=== PATIENT | male | born 1945 | race Caucasian/White ===

== ENCOUNTER 2018-04-21 17:03 | Inpatient (IN) | payer MEDICARE, MEDICAID ==
[2018-04-21 18:06] LABS: % BASOPHILS 0.1 % (0.0-2.0); % LYMPHOCYTES 14.6 % (20.0-50.0); % MONOCYTES 4.9 % (2.0-10.0); % NEUTROPHILS 74.4 % (40.0-80.0); EOSINOPHILE ABSOLUTE 0.6 Th/cmm (0.1-0.4); HEMATOCRIT 42.6 % (41.0-60); HEMOGLOBIN 14.2 gm/dL (12-16); LYMPHOCYTE ABSOLUTE 1.4 Th/cmm (1.5-3.0); MEAN CELL VOLUME 94.4 fl (80-99); MEAN CORPUSCULAR HEMOGLOBIN 31.5 pg (27.0-31.0); MEAN CORPUSCULAR HGB CONC 33.3 pg (28.0-36.0); MEAN PLATELET VOLUME 8.8 fl; MONOCYTE ABSOLUTE 0.5 Th/cmm (0.3-1.0); NEUTROPHILE ABSOLUTE 7.4 Th/cmm (1.8-8.0); PLATELET COUNT 176 Th/cmm (150-400); RED BLOOD COUNT 4.51 Mil/cmm (3.80-5.80); RED CELL DISTRIBUTION WIDTH 13.6 % (11.5-20.0); WHITE BLOOD COUNT 9.9 Th/cmm (4.8-10.8)
[2018-04-21 18:06] LABS: URINE SOURCE CLEAN C
[2018-04-21 18:09] LABS: URINE BILIRUBIN NEGATIVE (NEGATIVE); URINE BLOOD NEGATIVE (NEGATIVE); URINE GLUCOSE (UA) NEGATIVE (NEGATIVE); URINE KETONE NEGATIVE (NEGATIVE); URINE LEUKOCYTE ESTERASE NEGATIVE (NEGATIVE); URINE NITRATE NEGATIVE (NEGATIVE); URINE PROTEIN NEGATIVE (NEGATIVE); URINE UROBILINOGEN 0.2 E.U./dL (0.2 - 1.0)
[2018-04-21 18:13] LABS: URINE CLARITY CLEAR (CLEAR); URINE COLOR YELLOW; URINE MICROSCOPIC INDICATED? YES
[2018-04-21 18:15] LABS: URINE BACTERIA FEW /hpf (NONE SEEN); URINE EPITHELIAL CELLS FEW /lpf (FEW); URINE RBC 0-2 /hpf (0-5)
--- NOTE | 2018-04-21 18:21 | ED Physician Chart ---
ED Chief Complaint/HPI - Patient Information Date Seen:: 04/21/18 Time Seen:: 17:10 Chief Complaint:: inappropriate sexual behavior History of Present Illness:: inappropriate sexual behavior Allergies:: Allergies Allergy/AdvReac Type Severity Reaction Status Date / Time No Known Allergies Allergy Verified 04/21/18 17:09 Vitals:: Vital Signs - 8 hr 04/21/18 17:10 Temp 98.4 F HR 71 RR 19 BP 121/73 O2 Sat % 98 Historian:: Medical Records Review:: Nurse's Note Reviewed, Transfer documents Reviewed ED Review of Systems - Review of Systems General/Constitutional: No fever, No chills, No weakness, No diaphoresis, No edema, No loss of appetite, Other (inappropriate sexual behavior) Skin: No skin lesions, No rash, No bruising Head: No headache, No light-headedness Eyes: No loss of vision, No pain, No diplopia ENT: No earache, No nasal drainage, No sore throat, No tinnitus Neck: No neck pain, No swelling, No thyromegaly, No stiffness, No mass noted Cardio Vascular: No chest pain, No palpitations, No PND, No orthopnea, No edema Pulmonary: No SOB, No cough, No sputum, No wheezing GI: No nausea, No vomiting, No diarrhea, No pain, No melena, No hematochezia, No constipation, No hematemesis G/U: No dysuria, No frequency, No hematuria Musculoskeletal: No bone or joint pain, No back pain, No muscle pain Endocrine: No polyuria, No polydipsia Psychiatric: No prior psych history, No depression, No anxiety, No suicidal ideation Hematopoietic: No bruising, No lymphadenopathy Allergic/Immuno: No urticaria, No angioedema Neurological: No syncope, No focal symptoms, No weakness, No paresthesia, No headache, No seizure, No dizziness, No confusion, No vertigo ED Past Medical History - Past Medical History Obtainable: No Past Medical History: Dyslipidemia, PUD/GERD, Other (anemia;) Psychiatricy History: Schizophrenia, Other (dysphagia) Family Medical History - Family Member Mother History Unknown: Yes ED Physical Exam - Physical Examination General/Constitutional: Awake, Well-developed, well-nourished, No distress, Non- toxic appearing, Ambulatory Head: Atraumatic Eyes: Lids, conjuctiva normal, PERRL, EOMI Skin: Nl inspection, No rash, No skin lesions, No ecchymosis, Well hydrated, No lymphadenopathy ENMT: External ears, nose nl Neck: Nontender, Full ROM w/o pain, No nuchal rigidity, No mass, No stridor Respiratory: Nl effort/Exclusion, Clear to Auscultation, No Wheeze/Rhonchi/Rales Cardio Vascular: RRR, No murmur, gallop, rubs, NL S1 S2 GI: No tenderness/rebounding/guarding, No organomegaly, No hernia, Normal BS's, Nondistended, No mass/bruits, No McBurney tenderness : No CVA tenderness Extremities: No tenderness or effusion, Full ROM, normal strength in all extremities, No edema, Normal digits & nails Neuro/Psych: Alert/oriented, DTR's symmetric, Normal sensory exam, Normal motor strength, Normal gait, No focal deficits Misc: Normal back, No paraspinal tenderness ED Labs/Radiology/EKG Results - Lab Results Results: Laboratory Tests 04/21/18 04/21/18 17:00 18:00 WBC 9.9 RBC 4.51 Hgb 14.2 Hct 42.6 MCV 94.4 MCH 31.5 H MCHC Differential 33.3 RDW 13.6 Plt Count 176 MPV 8.8 Neutrophils % 74.4 Lymphocytes % 14.6 L Monocytes % 4.9 Eosinophils % 6.0 H Basophils % 0.1 Urine Source CLEAN C Urine Color YELLOW Urine Clarity CLEAR Urine pH 6.0 Ur Specific [place] 1.015 Urine Protein NEGATIVE Urine Glucose (UA) NEGATIVE Urine Ketones NEGATIVE Urine Blood NEGATIVE Urine Nitrate NEGATIVE Urine Bilirubin NEGATIVE Urine Urobilinogen 0.2 Ur Leukocyte Esterase NEGATIVE Urine RBC 0-2 H Urine WBC 2-5 Ur Epithelial Cells FEW Urine Bacteria FEW ED Assessment - Assessment General Assessment: PATIENT IS MEDICALLY CLEARED FOR THE GEROPSYCH UNIT. ED Septic Shock - . Is Septic Shock (SBP<90, OR Lactate>4 mmol\L) present?: No - <6hrs of presentation: Vital Signs: Vital Signs - 8 hr 04/21/18 17:10 Temp 98.4 F HR 71 RR 19 BP 121/73 O2 Sat % 98 ED Reassessment (Disposition) - Reassessment Reassessment Condition:: Unchanged - Diagnosis Diagnosis:: Sexually inappropriate behavior. PATIENT IS MEDICALLY CLEARED FOR THE GEROPSYCH UNIT. - Patient Disposition Discharge/Transfer:: Acute Care w/in this hosp Admitted to:: [facility] Condition at Disposition:: Stable, Unchanged
[2018-04-21 18:46] LABS: ALB/GLOB RATIO 1.3 (1.0-1.8); ALBUMIN 3.6 gm/dL (4.2-5.5); ALKALINE PHOSPHATASE 81 U/L (34-104); ANION GAP 11.3 (7.0-16.0); BILIRUBIN,TOTAL 0.3 mg/dL (0.3-1.0); BUN - UREA NITROGEN 22 mg/dL (7-25); CALCIUM SERUM 9.4 mg/dL (8.6-10.3); CARBON DIOXIDE 25.4 mEq/L (21.0-31.0); CHLORIDE 109 mEq/L (98-107); CREATININE - SERUM 1.1 mg/dL (0.7-1.3); GLUCOSE 110 mg/dL (70-105); PHOSPHOROUS 3.1 mg/dL (2.5-5.0); POTASSIUM SERUM 3.7 mEq/L (3.5-5.1); SGOT 13 U/L (13-39); SGPT/ALT 14 U/L (7-52); SODIUM SERUM 142 mEq/L (136-145); TOTAL PROTEIN,SERUM 6.3 gm/dL (6.0-8.3)
[2018-04-21 18:55] LABS: AMPHETAMINE URINE NEGATIVE (NEGATIVE); BARBITURATES URINE NEGATIVE (NEGATIVE); BENZODIAZEPINES QUAL URINE NEGATIVE (NEGATIVE); CANNABINOID THC NEGATIVE (NEGATIVE); COCAINE METABOLITE QUAL URINE NEGATIVE (NEGATIVE); METHADONE URINE NEGATIVE (NEGATIVE); METHAMPHETAMINES QUAL URINE NEGATIVE (NEGATIVE); OPIATES (MORPHINE) QUAL. URINE NEGATIVE (NEGATIVE); PHENCYCLIDINE (PCP) URINE NEGATIVE (NEGATIVE); TRICYCLICS (TCA) QUAL. URINE NEGATIVE (NEGATIVE)
[2018-04-21] MEDS ORDERED: Magnesium Hydroxide (MOM) 30 mL UDC PO PRN (21:06)
[2018-04-21 22:11] VITALS: BP 118/80
--- NOTE | 2018-04-21 23:53 | History & Physical ---
ADMIT DATE: 04/21/2018 HISTORY OF PRESENT ILLNESS: The patient is a 72-year-old male with long history of psychosis, mild dementia, hyperlipidemia, degenerative joint disease, admitted to Geropsych Department at [facility] under Dr. Booth's service. The patient feels well. No chest pain, no shortness of breath, nausea, no vomiting. PAST MEDICAL HISTORY: Significant for hyperlipidemia, degenerative joint disease, mild psychosis, mild dementia. PAST SURGICAL HISTORY: No recent surgery. ALLERGIES: None. MEDICATIONS: Follow admission reconciliation. SOCIAL HISTORY: Chronic smoker. No alcohol, no drug. FAMILY HISTORY: Noncontributory. REVIEW OF SYSTEMS: RENAL SYSTEM: No history of chronic renal disorder. CARDIOVASCULAR SYSTEM: No coronary artery disease. ENDOCRINE SYSTEM: No diabetes or thyroid problem. GASTROINTESTINAL SYSTEM: No upper or lower gastrointestinal bleed. NEUROLOGICAL SYSTEM: Seizure disorder. SKELETOMUSCULAR SYSTEM: He has degenerative joint disease. HEMATOLOGICAL: No bleeding tendencies. RESPIRATORY SYSTEM: No asthma. GENITOURINARY: No dysuria or hematuria. PHYSICAL EXAMINATION: GENERAL: He is awake, alert. VITAL SIGNS: Temperature 97.1, heart rate 75, blood pressure 118/80. HEENT: Normocephalic. Pupils reacting to light and accommodation. Sclerae are clear. NECK: Supple. Negative for lymphadenopathy, JVD or bruit. CHEST: Bilaterally normal. No rales, rhonchi or wheezing. HEART: S1, S2 normal. No gallop rhythm. ABDOMEN: Soft, bowel sounds positive. EXTREMITIES: No edema. BACK: Normal vertebral. SKIN: Intact. GENITALIA AND RECTAL: Exam done by primary physician, no complaint. NEUROLOGIC: Awake, alert, mildly confused. No focal motor or sensory deficit. Cranial nerves 2-12 are intact. ASSESSMENT: 1. Hyperlipidemia. 2. Degenerative joint disease. 3. Mild dementia. 4. Psychosis. PLAN: The patient admitted to the hospital under Dr. Booth's service. Medical problem addressed during hospitalization is psychosis. Medical problems addressed at discharge are hyperlipidemia, mild dementia, degenerative joint disease. The patient is medically stable for activity. Thank you, Dr. Booth, for asking me to see your patient. The patient is full code. JOB# [id number]
[2018-04-22 00:05] LABS: CHOLESTEROL 154 mg/dL (<200); HDL -HIGH DENSITY LIPOPROTEIN 46 mg/dL (23-92); TRIGLYCERIDES 269 mg/dL (<150)
[2018-04-22] MEDS ORDERED: PSYLLIUM HUSK PO SCH (09:00)
[2018-04-22] MEDS: Multivitamin w/ Minerals Tab PO SCH (10:00)
[2018-04-22] MEDS: Fish Oil 1,000 MG SGL PO SCH (10:00)
--- NOTE | 2018-04-22 14:24 | History & Physical ---
ADMIT DATE: IDENTIFYING INFORMATION: The patient is a 72-year-old male. CHIEF COMPLAINT: The patient is a poor historian, have no specific answer. HISTORY OF PRESENT ILLNESS: The patient was referred from [place] and was yesterday. He was acting out, combative, agitated. The patient's sleep well, eats well has to be medicated yesterday prior to sending him here while he was at the rehab center. The patient is a poor historian. Denies substance abuse. PAST PSYCHIATRIC HISTORY: There is a prior hospitalization; however, he does not remember being hospitalized before. He denies prior suicide attempt; however, his long history of psychotic issues. He is currently on Clozaril. MEDICAL HISTORY: Hyperlipidemia. His joint disease, mild dementia. ALLERGIES: He has no known drug allergy. FAMILY AND SOCIAL HISTORY: The patient, who has been since 1968 and that he has no children that he has college education. He told me that he works, but unable to tell me exactly how he worked and understand what he was saying the patient is on Clozaril 500 mg daily. The patient denies substance abuse. He denies prior psychiatric treatment, which is incorrect. MENTAL STATUS EXAMINATION: The patient is appropriately dressed, not well groomed. He was somewhat irritable. He was alert. He was unable to tell me the date. He knew he was at [facility]. He knows the peritonitis states he was denying any intent to harm himself or anybody. He was acting very agitated, combative yesterday. He seems to have average in terms of present, states that he is unable to tell me the date. He was able to tell me his date being 1945. States that his age 72 and 74 as he said he has mild dementia, unable tell me what he ate for breakfast or why he is here. His nursing home is good. However, he is , date of , but not his age. He denies any visual hallucination. He was somewhat paranoid. His insight and judgment is impaired. IMPRESSION: AXIS I: Chronic undifferentiated Schizoaffective disorder. MEDICAL DIAGNOSES: As per Dr. Moran. Plan: We will continue with the Clozaril do group therapy, milieu therapy, and individual therapy. ESTIMATED LENGTH OF STAY: 3-7 days. DISCHARGE CRITERIA: Decreasing agitation, feeling better after discharge, outpatient treatment. JOB# [id number]
--- NOTE | 2018-04-22 18:04 | Internal Medicine Prog Note ---
Internal Medicine Subjective - Subjective Service Date: 04/22/18 Patient seen and examined:: with staff Patient is:: awake, verbal, ambulating, confused Per staff patient has:: no adverse event Internal Medicine Objective - Results Result Diagrams: 04/21/18 18:00 04/21/18 18:00 Recent Labs: Laboratory Last Values WBC 9.9 Th/cmm (4.8-10.8) 04/21/18 18:00 RBC 4.51 Mil/cmm (3.80-5.80) 04/21/18 18:00 Hgb 14.2 gm/dL (12-16) 04/21/18 18:00 Hct 42.6 % (41.0-60) 04/21/18 18:00 MCV 94.4 fl (80-99) 04/21/18 18:00 MCH 31.5 pg (27.0-31.0) H 04/21/18 18:00 MCHC Differential 33.3 pg (28.0-36.0) 04/21/18 18:00 RDW 13.6 % (11.5-20.0) 04/21/18 18:00 Plt Count 176 Th/cmm (150-400) 04/21/18 18:00 MPV 8.8 fl 04/21/18 18:00 Neutrophils % 74.4 % (40.0-80.0) 04/21/18 18:00 Lymphocytes % 14.6 % (20.0-50.0) L 04/21/18 18:00 Monocytes % 4.9 % (2.0-10.0) 04/21/18 18:00 Eosinophils % 6.0 % (0.0-5.0) H 04/21/18 18:00 Basophils % 0.1 % (0.0-2.0) 04/21/18 18:00 Sodium 142 mEq/L (136-145) 04/21/18 18:00 Potassium 3.7 mEq/L (3.5-5.1) 04/21/18 18:00 Chloride 109 mEq/L (98-107) H 04/21/18 18:00 Carbon Dioxide 25.4 mEq/L (21.0-31.0) 04/21/18 18:00 Anion Gap 11.3 (7.0-16.0) 04/21/18 18:00 BUN 22 mg/dL (7-25) 04/21/18 18:00 Creatinine 1.1 mg/dL (0.7-1.3) 04/21/18 18:00 Est GFR ( Amer) TNP 04/21/18 18:00 Est GFR (Non-Af Amer) TNP 04/21/18 18:00 BUN/Creatinine Ratio 20.0 04/21/18 18:00 Glucose 110 mg/dL (70-105) H 04/21/18 18:00 Calcium 9.4 mg/dL (8.6-10.3) 04/21/18 18:00 Phosphorus 3.1 mg/dL (2.5-5.0) 04/21/18 18:00 Magnesium 2.0 mg/dL (1.9-2.7) 04/21/18 18:00 Total Bilirubin 0.3 mg/dL (0.3-1.0) 04/21/18 18:00 AST 13 U/L (13-39) 04/21/18 18:00 ALT 14 U/L (7-52) 04/21/18 18:00 Alkaline Phosphatase 81 U/L (34-104) 04/21/18 18:00 Total Protein 6.3 gm/dL (6.0-8.3) 04/21/18 18:00 Albumin 3.6 gm/dL (4.2-5.5) L 04/21/18 18:00 Globulin 2.7 gm/dL 04/21/18 18:00 Albumin/Globulin Ratio 1.3 (1.0-1.8) 04/21/18 18:00 Triglycerides 269 mg/dL (<150) H 04/21/18 18:00 Cholesterol 154 mg/dL (<200) 04/21/18 18:00 LDL Cholesterol Direct 90 mg/dL (75-193) 04/21/18 18:00 HDL Cholesterol 46 mg/dL (23-92) 04/21/18 18:00 Urine Source CLEAN C 04/21/18 17:00 Urine Color YELLOW 04/21/18 17:00 Urine Clarity CLEAR (CLEAR) 04/21/18 17:00 Urine pH 6.0 (4.6 - 8.0) 04/21/18 17:00 Ur Specific [place] 1.015 (1.005-1.030) 04/21/18 17:00 Urine Protein NEGATIVE mg/dL (NEGATIVE) 04/21/18 17:00 Urine Glucose (UA) NEGATIVE mg/dL (NEGATIVE) 04/21/18 17:00 Urine Ketones NEGATIVE mg/dL (NEGATIVE) 04/21/18 17:00 Urine Blood NEGATIVE (NEGATIVE) 04/21/18 17:00 Urine Nitrate NEGATIVE (NEGATIVE) 04/21/18 17:00 Urine Bilirubin NEGATIVE (NEGATIVE) 04/21/18 17:00 Urine Urobilinogen 0.2 E.U./dL (0.2 - 1.0) 04/21/18 17:00 Ur Leukocyte Esterase NEGATIVE (NEGATIVE) 04/21/18 17:00 Urine RBC 0-2 /hpf (0-5) H 04/21/18 17:00 Urine WBC 2-5 /hpf (0-5) 04/21/18 17:00 Ur Epithelial Cells FEW /lpf (FEW) 04/21/18 17:00 Urine Bacteria FEW /hpf (NONE SEEN) 04/21/18 17:00 Urine Opiates Screen NEGATIVE (NEGATIVE) 04/21/18 17:00 Urine Methadone Screen NEGATIVE (NEGATIVE) 04/21/18 17:00 Ur Barbiturates Screen NEGATIVE (NEGATIVE) 04/21/18 17:00 Ur Tricyclics Screen NEGATIVE (NEGATIVE) 04/21/18 17:00 Ur Phencyclidine Scrn NEGATIVE (NEGATIVE) 04/21/18 17:00 Amphetamines Screen NEGATIVE (NEGATIVE) 04/21/18 17:00 U Methamphetamines Scrn NEGATIVE (NEGATIVE) 04/21/18 17:00 U Benzodiazepines Scrn NEGATIVE (NEGATIVE) 04/21/18 17:00 U Cocaine Metab Screen NEGATIVE (NEGATIVE) 04/21/18 17:00 U Cannabinoids Screen NEGATIVE (NEGATIVE) 04/21/18 17:00 - Physical Exam Vitals and I&O: Vital Signs Temp 98.3 F 04/22/18 14:00 Pulse 70 04/22/18 14:00 Resp 18 04/22/18 14:00 BP 109/74 04/22/18 14:00 Pulse Ox 98 04/22/18 14:00 Intake & Output 04/21/18 04/22/18 04/22/18 18:59 06:59 18:59 Weight (lbs) 73.936 kg Other: Weight Source Patient stated Active Medications: Current Medications Acetaminophen (Tylenol) 325 mg PO Q4HR PRN PRN Reason: Pain (Mild) Stop: 06/20/18 21:05 Cholecalciferol (Vitamin D3) 2,000 iu PO DAILY [facility] Stop: 06/21/18 08:59 Last Admin: 04/22/18 10:00 Dose: Not Given Clozapine (Clozaril) 500 mg PO DAILY [facility]; Protocol Stop: 06/21/18 08:59 Last Admin: 04/22/18 10:00 Dose: Not Given Docusate Sodium (Colace) 100 mg PO BID [facility] Stop: 06/21/18 08:59 Last Admin: 04/22/18 17:33 Dose: Not Given Fish Oil ([place] 3) 1,000 mg PO DAILY [facility] Stop: 06/21/18 08:59 Last Admin: 04/22/18 10:00 Dose: Not Given Folic Acid (Folate) 1 mg PO DAILY [facility] Stop: 06/21/18 08:59 Last Admin: 04/22/18 10:00 Dose: Not Given Magnesium Hydroxide (Milk Of Magnesia) 30 ml PO HS PRN PRN Reason: Constipation Stop: 06/20/18 21:05 Psyllium Hydrophilic Mucilloid (Metamucil) 1 pkt PO DAILY [facility] Stop: 06/21/18 08:59 Last Admin: 04/22/18 10:00 Dose: Not Given Simvastatin (Zocor) 40 mg PO HS [facility]; Protocol Stop: 06/21/18 20:59 General: alert, demented HEENT: NC/AT, PERRLA, EOMI, anicteric sclerae, throat clear Neck: Supple, No JVD, No thyromegaly, +2 carotid pulse wo bruit, No LAD Lungs: CTAB Cardiovascular: RRR, Normal S1, Normal S2, without murmur Abdomen: soft, non-tender, non-distended Extremities: clear Neurological: no change Internal Medicine Assmt/Plan - Assessment Assessment: 1.HYPERLIPIDEMIA. 2.DJD. 3.DEMENTIA. 4.PSYCHOSIS. - Plan Plan: CONTINUE ON CURRENT MEDICATION AND DIET.
[2018-04-23] MEDS: Multivitamin w/ Minerals Tab PO SCH (08:29)
[2018-04-23] MEDS: Fish Oil 1,000 MG SGL PO SCH (08:29)
--- NOTE | 2018-04-23 20:58 | Progress Notes ---
DATE: 04/23/2018 Case was discussed with staff of the patient, reviewed records. The patient apparently did not take the Clozaril yesterday, took it today and felt nauseated. He is taking a very high dose of Clozaril for which I will be decreasing down to 100 mg at bedtime instead of 500 mg as if he was then taking the medication, I think that may be too much of the dose to suddenly take and sleeping better, eating better, and continues to have episodes of agitation, irritability, and he is on Metamucil to make sure he does not get constipated, simvastatin. We will continue to work with the patient in group therapy, milieu therapy, and adjust medications as needed. JOB# [id number]
--- NOTE | 2018-04-23 22:51 | Internal Medicine Prog Note ---
Internal Medicine Subjective - Subjective Service Date: 04/23/18 Patient seen and examined:: with staff Patient is:: awake, verbal, ambulating, confused Per staff patient has:: no adverse event Internal Medicine Objective - Results Result Diagrams: 04/21/18 18:00 04/21/18 18:00 Recent Labs: Laboratory Last Values WBC 9.9 Th/cmm (4.8-10.8) 04/21/18 18:00 RBC 4.51 Mil/cmm (3.80-5.80) 04/21/18 18:00 Hgb 14.2 gm/dL (12-16) 04/21/18 18:00 Hct 42.6 % (41.0-60) 04/21/18 18:00 MCV 94.4 fl (80-99) 04/21/18 18:00 MCH 31.5 pg (27.0-31.0) H 04/21/18 18:00 MCHC Differential 33.3 pg (28.0-36.0) 04/21/18 18:00 RDW 13.6 % (11.5-20.0) 04/21/18 18:00 Plt Count 176 Th/cmm (150-400) 04/21/18 18:00 MPV 8.8 fl 04/21/18 18:00 Neutrophils % 74.4 % (40.0-80.0) 04/21/18 18:00 Lymphocytes % 14.6 % (20.0-50.0) L 04/21/18 18:00 Monocytes % 4.9 % (2.0-10.0) 04/21/18 18:00 Eosinophils % 6.0 % (0.0-5.0) H 04/21/18 18:00 Basophils % 0.1 % (0.0-2.0) 04/21/18 18:00 Sodium 142 mEq/L (136-145) 04/21/18 18:00 Potassium 3.7 mEq/L (3.5-5.1) 04/21/18 18:00 Chloride 109 mEq/L (98-107) H 04/21/18 18:00 Carbon Dioxide 25.4 mEq/L (21.0-31.0) 04/21/18 18:00 Anion Gap 11.3 (7.0-16.0) 04/21/18 18:00 BUN 22 mg/dL (7-25) 04/21/18 18:00 Creatinine 1.1 mg/dL (0.7-1.3) 04/21/18 18:00 Est GFR ( Amer) TNP 04/21/18 18:00 Est GFR (Non-Af Amer) TNP 04/21/18 18:00 BUN/Creatinine Ratio 20.0 04/21/18 18:00 Glucose 110 mg/dL (70-105) H 04/21/18 18:00 Calcium 9.4 mg/dL (8.6-10.3) 04/21/18 18:00 Phosphorus 3.1 mg/dL (2.5-5.0) 04/21/18 18:00 Magnesium 2.0 mg/dL (1.9-2.7) 04/21/18 18:00 Total Bilirubin 0.3 mg/dL (0.3-1.0) 04/21/18 18:00 AST 13 U/L (13-39) 04/21/18 18:00 ALT 14 U/L (7-52) 04/21/18 18:00 Alkaline Phosphatase 81 U/L (34-104) 04/21/18 18:00 Total Protein 6.3 gm/dL (6.0-8.3) 04/21/18 18:00 Albumin 3.6 gm/dL (4.2-5.5) L 04/21/18 18:00 Globulin 2.7 gm/dL 04/21/18 18:00 Albumin/Globulin Ratio 1.3 (1.0-1.8) 04/21/18 18:00 Triglycerides 269 mg/dL (<150) H 04/21/18 18:00 Cholesterol 154 mg/dL (<200) 04/21/18 18:00 LDL Cholesterol Direct 90 mg/dL (75-193) 04/21/18 18:00 HDL Cholesterol 46 mg/dL (23-92) 04/21/18 18:00 Urine Source CLEAN C 04/21/18 17:00 Urine Color YELLOW 04/21/18 17:00 Urine Clarity CLEAR (CLEAR) 04/21/18 17:00 Urine pH 6.0 (4.6 - 8.0) 04/21/18 17:00 Ur Specific [place] 1.015 (1.005-1.030) 04/21/18 17:00 Urine Protein NEGATIVE mg/dL (NEGATIVE) 04/21/18 17:00 Urine Glucose (UA) NEGATIVE mg/dL (NEGATIVE) 04/21/18 17:00 Urine Ketones NEGATIVE mg/dL (NEGATIVE) 04/21/18 17:00 Urine Blood NEGATIVE (NEGATIVE) 04/21/18 17:00 Urine Nitrate NEGATIVE (NEGATIVE) 04/21/18 17:00 Urine Bilirubin NEGATIVE (NEGATIVE) 04/21/18 17:00 Urine Urobilinogen 0.2 E.U./dL (0.2 - 1.0) 04/21/18 17:00 Ur Leukocyte Esterase NEGATIVE (NEGATIVE) 04/21/18 17:00 Urine RBC 0-2 /hpf (0-5) H 04/21/18 17:00 Urine WBC 2-5 /hpf (0-5) 04/21/18 17:00 Ur Epithelial Cells FEW /lpf (FEW) 04/21/18 17:00 Urine Bacteria FEW /hpf (NONE SEEN) 04/21/18 17:00 Urine Opiates Screen NEGATIVE (NEGATIVE) 04/21/18 17:00 Urine Methadone Screen NEGATIVE (NEGATIVE) 04/21/18 17:00 Ur Barbiturates Screen NEGATIVE (NEGATIVE) 04/21/18 17:00 Ur Tricyclics Screen NEGATIVE (NEGATIVE) 04/21/18 17:00 Ur Phencyclidine Scrn NEGATIVE (NEGATIVE) 04/21/18 17:00 Amphetamines Screen NEGATIVE (NEGATIVE) 04/21/18 17:00 U Methamphetamines Scrn NEGATIVE (NEGATIVE) 04/21/18 17:00 U Benzodiazepines Scrn NEGATIVE (NEGATIVE) 04/21/18 17:00 U Cocaine Metab Screen NEGATIVE (NEGATIVE) 04/21/18 17:00 U Cannabinoids Screen NEGATIVE (NEGATIVE) 04/21/18 17:00 - Physical Exam Vitals and I&O: Vital Signs Temp 98.4 F 04/23/18 19:52 Pulse 96 04/23/18 19:52 Resp 19 04/23/18 19:52 BP 117/70 04/23/18 19:52 Pulse Ox 96 04/23/18 19:52 Intake & Output 04/23/18 04/23/18 04/24/18 06:59 18:59 06:59 Intake Total 1400 Balance 1400 Intake: Oral 1400 Other: # Voids 4 # Bowel Movements 1 Active Medications: Current Medications Acetaminophen (Tylenol) 325 mg PO Q4HR PRN PRN Reason: Pain (Mild) Stop: 06/20/18 21:05 Cholecalciferol (Vitamin D3) 2,000 iu PO DAILY [facility] Stop: 06/21/18 08:59 Last Admin: 04/23/18 08:29 Dose: 2,000 iu Clozapine (Clozaril) 100 mg PO HS [facility]; Protocol Stop: 06/22/18 20:59 Last Admin: 04/23/18 20:15 Dose: 100 mg Docusate Sodium (Colace) 100 mg PO BID [facility] Stop: 06/21/18 08:59 Last Admin: 04/23/18 17:08 Dose: 100 mg Fish Oil ([place] 3) 1,000 mg PO DAILY [facility] Stop: 06/21/18 08:59 Last Admin: 04/23/18 08:29 Dose: 1,000 mg Folic Acid (Folate) 1 mg PO DAILY [facility] Stop: 06/21/18 08:59 Last Admin: 04/23/18 08:29 Dose: 1 mg Magnesium Hydroxide (Milk Of Magnesia) 30 ml PO HS PRN PRN Reason: Constipation Stop: 06/20/18 21:05 Psyllium Hydrophilic Mucilloid (Metamucil) 1 pkt PO DAILY [facility] Stop: 06/21/18 08:59 Last Admin: 04/23/18 08:30 Dose: 1 pkt Simvastatin (Zocor) 40 mg PO HS [facility]; Protocol Stop: 06/21/18 20:59 Last Admin: 04/23/18 20:15 Dose: 40 mg General: alert, demented HEENT: NC/AT, PERRLA, EOMI, anicteric sclerae, throat clear Neck: Supple, No JVD, No thyromegaly, +2 carotid pulse wo bruit, No LAD Lungs: CTAB Cardiovascular: RRR, Normal S1, Normal S2, without murmur Abdomen: soft, non-tender, non-distended Extremities: clear Neurological: no change Internal Medicine Assmt/Plan - Assessment Assessment: 1.HYPERLIPIDEMIA. 2.DJD. 3.DEMENTIA. 4.PSYCHOSIS. - Plan Plan: CONTINUE ON CURRENT MEDICATION AND DIET.
[2018-04-24] MEDS: Fish Oil 1,000 MG SGL PO SCH (09:00)
[2018-04-24] MEDS: Multivitamin w/ Minerals Tab PO SCH (09:00)
--- NOTE | 2018-04-24 18:27 | Internal Medicine Prog Note ---
Internal Medicine Subjective - Subjective Service Date: 04/24/18 Patient seen and examined:: with staff Patient is:: awake, verbal, ambulating, confused Per staff patient has:: no adverse event Internal Medicine Objective - Results Result Diagrams: 04/21/18 18:00 04/21/18 18:00 Recent Labs: Laboratory Last Values WBC 9.9 Th/cmm (4.8-10.8) 04/21/18 18:00 RBC 4.51 Mil/cmm (3.80-5.80) 04/21/18 18:00 Hgb 14.2 gm/dL (12-16) 04/21/18 18:00 Hct 42.6 % (41.0-60) 04/21/18 18:00 MCV 94.4 fl (80-99) 04/21/18 18:00 MCH 31.5 pg (27.0-31.0) H 04/21/18 18:00 MCHC Differential 33.3 pg (28.0-36.0) 04/21/18 18:00 RDW 13.6 % (11.5-20.0) 04/21/18 18:00 Plt Count 176 Th/cmm (150-400) 04/21/18 18:00 MPV 8.8 fl 04/21/18 18:00 Neutrophils % 74.4 % (40.0-80.0) 04/21/18 18:00 Lymphocytes % 14.6 % (20.0-50.0) L 04/21/18 18:00 Monocytes % 4.9 % (2.0-10.0) 04/21/18 18:00 Eosinophils % 6.0 % (0.0-5.0) H 04/21/18 18:00 Basophils % 0.1 % (0.0-2.0) 04/21/18 18:00 Sodium 142 mEq/L (136-145) 04/21/18 18:00 Potassium 3.7 mEq/L (3.5-5.1) 04/21/18 18:00 Chloride 109 mEq/L (98-107) H 04/21/18 18:00 Carbon Dioxide 25.4 mEq/L (21.0-31.0) 04/21/18 18:00 Anion Gap 11.3 (7.0-16.0) 04/21/18 18:00 BUN 22 mg/dL (7-25) 04/21/18 18:00 Creatinine 1.1 mg/dL (0.7-1.3) 04/21/18 18:00 Est GFR ( Amer) TNP 04/21/18 18:00 Est GFR (Non-Af Amer) TNP 04/21/18 18:00 BUN/Creatinine Ratio 20.0 04/21/18 18:00 Glucose 110 mg/dL (70-105) H 04/21/18 18:00 Calcium 9.4 mg/dL (8.6-10.3) 04/21/18 18:00 Phosphorus 3.1 mg/dL (2.5-5.0) 04/21/18 18:00 Magnesium 2.0 mg/dL (1.9-2.7) 04/21/18 18:00 Total Bilirubin 0.3 mg/dL (0.3-1.0) 04/21/18 18:00 AST 13 U/L (13-39) 04/21/18 18:00 ALT 14 U/L (7-52) 04/21/18 18:00 Alkaline Phosphatase 81 U/L (34-104) 04/21/18 18:00 Total Protein 6.3 gm/dL (6.0-8.3) 04/21/18 18:00 Albumin 3.6 gm/dL (4.2-5.5) L 04/21/18 18:00 Globulin 2.7 gm/dL 04/21/18 18:00 Albumin/Globulin Ratio 1.3 (1.0-1.8) 04/21/18 18:00 Triglycerides 269 mg/dL (<150) H 04/21/18 18:00 Cholesterol 154 mg/dL (<200) 04/21/18 18:00 LDL Cholesterol Direct 90 mg/dL (75-193) 04/21/18 18:00 HDL Cholesterol 46 mg/dL (23-92) 04/21/18 18:00 Urine Source CLEAN C 04/21/18 17:00 Urine Color YELLOW 04/21/18 17:00 Urine Clarity CLEAR (CLEAR) 04/21/18 17:00 Urine pH 6.0 (4.6 - 8.0) 04/21/18 17:00 Ur Specific [place] 1.015 (1.005-1.030) 04/21/18 17:00 Urine Protein NEGATIVE mg/dL (NEGATIVE) 04/21/18 17:00 Urine Glucose (UA) NEGATIVE mg/dL (NEGATIVE) 04/21/18 17:00 Urine Ketones NEGATIVE mg/dL (NEGATIVE) 04/21/18 17:00 Urine Blood NEGATIVE (NEGATIVE) 04/21/18 17:00 Urine Nitrate NEGATIVE (NEGATIVE) 04/21/18 17:00 Urine Bilirubin NEGATIVE (NEGATIVE) 04/21/18 17:00 Urine Urobilinogen 0.2 E.U./dL (0.2 - 1.0) 04/21/18 17:00 Ur Leukocyte Esterase NEGATIVE (NEGATIVE) 04/21/18 17:00 Urine RBC 0-2 /hpf (0-5) H 04/21/18 17:00 Urine WBC 2-5 /hpf (0-5) 04/21/18 17:00 Ur Epithelial Cells FEW /lpf (FEW) 04/21/18 17:00 Urine Bacteria FEW /hpf (NONE SEEN) 04/21/18 17:00 Urine Opiates Screen NEGATIVE (NEGATIVE) 04/21/18 17:00 Urine Methadone Screen NEGATIVE (NEGATIVE) 04/21/18 17:00 Ur Barbiturates Screen NEGATIVE (NEGATIVE) 04/21/18 17:00 Ur Tricyclics Screen NEGATIVE (NEGATIVE) 04/21/18 17:00 Ur Phencyclidine Scrn NEGATIVE (NEGATIVE) 04/21/18 17:00 Amphetamines Screen NEGATIVE (NEGATIVE) 04/21/18 17:00 U Methamphetamines Scrn NEGATIVE (NEGATIVE) 04/21/18 17:00 U Benzodiazepines Scrn NEGATIVE (NEGATIVE) 04/21/18 17:00 U Cocaine Metab Screen NEGATIVE (NEGATIVE) 04/21/18 17:00 U Cannabinoids Screen NEGATIVE (NEGATIVE) 04/21/18 17:00 - Physical Exam Vitals and I&O: Vital Signs Temp 97.9 F 04/24/18 14:00 Pulse 64 04/24/18 14:00 Resp 18 04/24/18 14:00 BP 101/67 04/24/18 14:00 Pulse Ox 97 04/24/18 14:00 Intake & Output 04/23/18 04/24/18 04/24/18 18:59 06:59 18:59 Intake Total 1400 240 Output Total 1 Balance 1400 240 -1 Intake: Oral 1400 240 Output: Stool 1 Other: # Voids 4 2 # Bowel Movements 1 Active Medications: Current Medications Acetaminophen (Tylenol) 325 mg PO Q4HR PRN PRN Reason: Pain (Mild) Stop: 06/20/18 21:05 Cholecalciferol (Vitamin D3) 2,000 iu PO DAILY [facility] Stop: 06/21/18 08:59 Last Admin: 04/24/18 09:00 Dose: 2,000 iu Clozapine (Clozaril) 100 mg PO HS [facility]; Protocol Stop: 06/22/18 20:59 Last Admin: 04/23/18 20:15 Dose: 100 mg Docusate Sodium (Colace) 100 mg PO BID [facility] Stop: 06/21/18 08:59 Last Admin: 04/24/18 16:31 Dose: 100 mg Fish Oil ([place] 3) 1,000 mg PO DAILY [facility] Stop: 06/21/18 08:59 Last Admin: 04/24/18 09:00 Dose: 1,000 mg Folic Acid (Folate) 1 mg PO DAILY [facility] Stop: 06/21/18 08:59 Last Admin: 04/24/18 09:00 Dose: 1 mg Magnesium Hydroxide (Milk Of Magnesia) 30 ml PO HS PRN PRN Reason: Constipation Stop: 06/20/18 21:05 Psyllium Hydrophilic Mucilloid (Metamucil) 1 pkt PO DAILY [facility] Stop: 06/21/18 08:59 Last Admin: 04/24/18 09:01 Dose: 1 pkt Simvastatin (Zocor) 40 mg PO HS [facility]; Protocol Stop: 06/21/18 20:59 Last Admin: 04/23/18 20:15 Dose: 40 mg General: alert, demented HEENT: NC/AT, PERRLA, EOMI, anicteric sclerae, throat clear Neck: Supple, No JVD, No thyromegaly, +2 carotid pulse wo bruit, No LAD Lungs: CTAB Cardiovascular: RRR, Normal S1, Normal S2, without murmur Abdomen: soft, non-tender, non-distended Extremities: clear Neurological: no change Internal Medicine Assmt/Plan - Assessment Assessment: 1.HYPERLIPIDEMIA. 2.DJD. 3.DEMENTIA. 4.PSYCHOSIS. - Plan Plan: CONTINUE ON CURRENT MEDICATION AND DIET.
--- NOTE | 2018-04-24 22:08 | Progress Notes ---
DATE: 04/24/2018 SUBJECTIVE: Case was discussed with staff of the patient, reviewed records. I decrease Clozaril yesterday to 100 mg at bedtime as the patient did not take it for I don't know how many days and he was vomiting yesterday, dizzy. I will keep him on the 100 mg and see how he does on it. He is not acting out. However, he is still unpredictable, impulsive, getting easily agitated. No current side effects with the medication, no sedation, no nausea, and no extrapyramidal symptoms. Lab work showed CBC with high MCH, high lymphocyte, high eosinophil, and the rest within normal range. Chemistry panel with high chloride, high blood sugar, and low albumin, the rest within normal range. He has high triglyceride 269, the rest within normal range. Urinalysis was red cells in the urine and toxicology screen is negative. We will continue to work with the patient in group therapy, milieu therapy, and adjust the medications as needed. JOB# [id number]
[2018-04-25] MEDS: Fish Oil 1,000 MG SGL PO SCH (08:23)
[2018-04-25] MEDS: Multivitamin w/ Minerals Tab PO SCH (08:23)
--- NOTE | 2018-04-25 12:56 | Internal Medicine Prog Note ---
Internal Medicine Subjective - Subjective Service Date: 04/25/18 Patient is:: awake, verbal, ambulating, confused Per staff patient has:: no adverse event Internal Medicine Objective - Results Result Diagrams: 04/21/18 18:00 04/21/18 18:00 Recent Labs: Laboratory Last Values WBC 9.9 Th/cmm (4.8-10.8) 04/21/18 18:00 RBC 4.51 Mil/cmm (3.80-5.80) 04/21/18 18:00 Hgb 14.2 gm/dL (12-16) 04/21/18 18:00 Hct 42.6 % (41.0-60) 04/21/18 18:00 MCV 94.4 fl (80-99) 04/21/18 18:00 MCH 31.5 pg (27.0-31.0) H 04/21/18 18:00 MCHC Differential 33.3 pg (28.0-36.0) 04/21/18 18:00 RDW 13.6 % (11.5-20.0) 04/21/18 18:00 Plt Count 176 Th/cmm (150-400) 04/21/18 18:00 MPV 8.8 fl 04/21/18 18:00 Neutrophils % 74.4 % (40.0-80.0) 04/21/18 18:00 Lymphocytes % 14.6 % (20.0-50.0) L 04/21/18 18:00 Monocytes % 4.9 % (2.0-10.0) 04/21/18 18:00 Eosinophils % 6.0 % (0.0-5.0) H 04/21/18 18:00 Basophils % 0.1 % (0.0-2.0) 04/21/18 18:00 Sodium 142 mEq/L (136-145) 04/21/18 18:00 Potassium 3.7 mEq/L (3.5-5.1) 04/21/18 18:00 Chloride 109 mEq/L (98-107) H 04/21/18 18:00 Carbon Dioxide 25.4 mEq/L (21.0-31.0) 04/21/18 18:00 Anion Gap 11.3 (7.0-16.0) 04/21/18 18:00 BUN 22 mg/dL (7-25) 04/21/18 18:00 Creatinine 1.1 mg/dL (0.7-1.3) 04/21/18 18:00 Est GFR ( Amer) TNP 04/21/18 18:00 Est GFR (Non-Af Amer) TNP 04/21/18 18:00 BUN/Creatinine Ratio 20.0 04/21/18 18:00 Glucose 110 mg/dL (70-105) H 04/21/18 18:00 Calcium 9.4 mg/dL (8.6-10.3) 04/21/18 18:00 Phosphorus 3.1 mg/dL (2.5-5.0) 04/21/18 18:00 Magnesium 2.0 mg/dL (1.9-2.7) 04/21/18 18:00 Total Bilirubin 0.3 mg/dL (0.3-1.0) 04/21/18 18:00 AST 13 U/L (13-39) 04/21/18 18:00 ALT 14 U/L (7-52) 04/21/18 18:00 Alkaline Phosphatase 81 U/L (34-104) 04/21/18 18:00 Total Protein 6.3 gm/dL (6.0-8.3) 04/21/18 18:00 Albumin 3.6 gm/dL (4.2-5.5) L 04/21/18 18:00 Globulin 2.7 gm/dL 04/21/18 18:00 Albumin/Globulin Ratio 1.3 (1.0-1.8) 04/21/18 18:00 Triglycerides 269 mg/dL (<150) H 04/21/18 18:00 Cholesterol 154 mg/dL (<200) 04/21/18 18:00 LDL Cholesterol Direct 90 mg/dL (75-193) 04/21/18 18:00 HDL Cholesterol 46 mg/dL (23-92) 04/21/18 18:00 Urine Source CLEAN C 04/21/18 17:00 Urine Color YELLOW 04/21/18 17:00 Urine Clarity CLEAR (CLEAR) 04/21/18 17:00 Urine pH 6.0 (4.6 - 8.0) 04/21/18 17:00 Ur Specific [place] 1.015 (1.005-1.030) 04/21/18 17:00 Urine Protein NEGATIVE mg/dL (NEGATIVE) 04/21/18 17:00 Urine Glucose (UA) NEGATIVE mg/dL (NEGATIVE) 04/21/18 17:00 Urine Ketones NEGATIVE mg/dL (NEGATIVE) 04/21/18 17:00 Urine Blood NEGATIVE (NEGATIVE) 04/21/18 17:00 Urine Nitrate NEGATIVE (NEGATIVE) 04/21/18 17:00 Urine Bilirubin NEGATIVE (NEGATIVE) 04/21/18 17:00 Urine Urobilinogen 0.2 E.U./dL (0.2 - 1.0) 04/21/18 17:00 Ur Leukocyte Esterase NEGATIVE (NEGATIVE) 04/21/18 17:00 Urine RBC 0-2 /hpf (0-5) H 04/21/18 17:00 Urine WBC 2-5 /hpf (0-5) 04/21/18 17:00 Ur Epithelial Cells FEW /lpf (FEW) 04/21/18 17:00 Urine Bacteria FEW /hpf (NONE SEEN) 04/21/18 17:00 Urine Opiates Screen NEGATIVE (NEGATIVE) 04/21/18 17:00 Urine Methadone Screen NEGATIVE (NEGATIVE) 04/21/18 17:00 Ur Barbiturates Screen NEGATIVE (NEGATIVE) 04/21/18 17:00 Ur Tricyclics Screen NEGATIVE (NEGATIVE) 04/21/18 17:00 Ur Phencyclidine Scrn NEGATIVE (NEGATIVE) 04/21/18 17:00 Clozapine SEE REF. LAB REPORT 04/21/18 18:00 Amphetamines Screen NEGATIVE (NEGATIVE) 04/21/18 17:00 U Methamphetamines Scrn NEGATIVE (NEGATIVE) 04/21/18 17:00 U Benzodiazepines Scrn NEGATIVE (NEGATIVE) 04/21/18 17:00 U Cocaine Metab Screen NEGATIVE (NEGATIVE) 04/21/18 17:00 U Cannabinoids Screen NEGATIVE (NEGATIVE) 04/21/18 17:00 - Physical Exam Vitals and I&O: Vital Signs Temp 97.8 F 04/25/18 05:47 Pulse 66 04/25/18 05:47 Resp 20 04/25/18 05:47 BP 118/77 04/25/18 05:47 Pulse Ox 98 04/25/18 05:47 Intake & Output 04/24/18 04/25/18 04/25/18 18:59 06:59 18:59 Intake Total 540 Output Total 1 Balance -1 540 Intake: Oral 540 Output: Stool 1 Other: # Voids 2 # Bowel Movements 0 Active Medications: Current Medications Acetaminophen (Tylenol) 325 mg PO Q4HR PRN PRN Reason: Pain (Mild) Stop: 06/20/18 21:05 Cholecalciferol (Vitamin D3) 2,000 iu PO DAILY [facility] Stop: 06/21/18 08:59 Last Admin: 04/25/18 08:23 Dose: 2,000 iu Clozapine 100 mg/ Clozapine 25 (mg) 125 mg PO HS [facility] Stop: 06/24/18 20:59 Docusate Sodium (Colace) 100 mg PO BID [facility] Stop: 06/21/18 08:59 Last Admin: 04/25/18 08:23 Dose: 100 mg Fish Oil ([place] 3) 1,000 mg PO DAILY [facility] Stop: 06/21/18 08:59 Last Admin: 04/25/18 08:23 Dose: 1,000 mg Folic Acid (Folate) 1 mg PO DAILY [facility] Stop: 06/21/18 08:59 Last Admin: 04/25/18 08:23 Dose: 1 mg Magnesium Hydroxide (Milk Of Magnesia) 30 ml PO HS PRN PRN Reason: Constipation Stop: 06/20/18 21:05 Psyllium Hydrophilic Mucilloid (Metamucil) 1 pkt PO DAILY [facility] Stop: 06/21/18 08:59 Last Admin: 04/25/18 08:23 Dose: 1 pkt Simvastatin (Zocor) 40 mg PO HS [facility]; Protocol Stop: 06/21/18 20:59 Last Admin: 04/24/18 20:29 Dose: 40 mg General: alert, demented HEENT: NC/AT, PERRLA, EOMI, anicteric sclerae, throat clear Neck: Supple, No JVD, No thyromegaly, +2 carotid pulse wo bruit, No LAD Lungs: CTAB Cardiovascular: RRR, Normal S1, Normal S2, without murmur Abdomen: soft, non-tender, non-distended Extremities: clear Neurological: no change Internal Medicine Assmt/Plan - Assessment Assessment: 1.HYPERLIPIDEMIA. 2.DJD. 3.DEMENTIA. 4.PSYCHOSIS. - Plan Plan: CONTINUE ON CURRENT MEDICATION AND DIET.
[2018-04-25] MEDS ORDERED: cloZAPine 100 MG, cloZAPine 25 MG PO SCH (21:00)
--- NOTE | 2018-04-25 23:37 | Progress Notes ---
DATE: 04/25/2018 Case was discussed with staff of the patient, reviewed records. The patient tolerated the decrease in his Clozaril. He is not vomiting. He is not sedative. He is sleeping better, eating better. He continues to be internally preoccupied. He is compliant with the medication with no side effects, no sedation or nausea. No extrapyramidal symptoms. I will be increasing his dose to 125 mg at bedtime. Also, he is on medication for constipation, so he will not get constipated and we will monitoring his bowel function. No side effects with the medication, no sedation, no nausea, no extrapyramidal symptoms. We will continue to work with the patient in group therapy, milieu therapy, and adjust the medication as needed. JOB# [id number]
[2018-04-26] MEDS: Fish Oil 1,000 MG SGL PO SCH (09:48)
[2018-04-26] MEDS: Multivitamin w/ Minerals Tab PO SCH (09:48)
--- NOTE | 2018-04-26 10:14 | Internal Medicine Prog Note ---
Internal Medicine Subjective - Subjective Patient seen and examined:: without staff Patient is:: awake, verbal, ambulating, confused Per staff patient has:: no adverse event Internal Medicine Objective - Results Result Diagrams: 04/21/18 18:00 04/21/18 18:00 Recent Labs: Laboratory Last Values WBC 9.9 Th/cmm (4.8-10.8) 04/21/18 18:00 RBC 4.51 Mil/cmm (3.80-5.80) 04/21/18 18:00 Hgb 14.2 gm/dL (12-16) 04/21/18 18:00 Hct 42.6 % (41.0-60) 04/21/18 18:00 MCV 94.4 fl (80-99) 04/21/18 18:00 MCH 31.5 pg (27.0-31.0) H 04/21/18 18:00 MCHC Differential 33.3 pg (28.0-36.0) 04/21/18 18:00 RDW 13.6 % (11.5-20.0) 04/21/18 18:00 Plt Count 176 Th/cmm (150-400) 04/21/18 18:00 MPV 8.8 fl 04/21/18 18:00 Neutrophils % 74.4 % (40.0-80.0) 04/21/18 18:00 Lymphocytes % 14.6 % (20.0-50.0) L 04/21/18 18:00 Monocytes % 4.9 % (2.0-10.0) 04/21/18 18:00 Eosinophils % 6.0 % (0.0-5.0) H 04/21/18 18:00 Basophils % 0.1 % (0.0-2.0) 04/21/18 18:00 Sodium 142 mEq/L (136-145) 04/21/18 18:00 Potassium 3.7 mEq/L (3.5-5.1) 04/21/18 18:00 Chloride 109 mEq/L (98-107) H 04/21/18 18:00 Carbon Dioxide 25.4 mEq/L (21.0-31.0) 04/21/18 18:00 Anion Gap 11.3 (7.0-16.0) 04/21/18 18:00 BUN 22 mg/dL (7-25) 04/21/18 18:00 Creatinine 1.1 mg/dL (0.7-1.3) 04/21/18 18:00 Est GFR ( Amer) TNP 04/21/18 18:00 Est GFR (Non-Af Amer) TNP 04/21/18 18:00 BUN/Creatinine Ratio 20.0 04/21/18 18:00 Glucose 110 mg/dL (70-105) H 04/21/18 18:00 Calcium 9.4 mg/dL (8.6-10.3) 04/21/18 18:00 Phosphorus 3.1 mg/dL (2.5-5.0) 04/21/18 18:00 Magnesium 2.0 mg/dL (1.9-2.7) 04/21/18 18:00 Total Bilirubin 0.3 mg/dL (0.3-1.0) 04/21/18 18:00 AST 13 U/L (13-39) 04/21/18 18:00 ALT 14 U/L (7-52) 04/21/18 18:00 Alkaline Phosphatase 81 U/L (34-104) 04/21/18 18:00 Total Protein 6.3 gm/dL (6.0-8.3) 04/21/18 18:00 Albumin 3.6 gm/dL (4.2-5.5) L 04/21/18 18:00 Globulin 2.7 gm/dL 04/21/18 18:00 Albumin/Globulin Ratio 1.3 (1.0-1.8) 04/21/18 18:00 Triglycerides 269 mg/dL (<150) H 04/21/18 18:00 Cholesterol 154 mg/dL (<200) 04/21/18 18:00 LDL Cholesterol Direct 90 mg/dL (75-193) 04/21/18 18:00 HDL Cholesterol 46 mg/dL (23-92) 04/21/18 18:00 Urine Source CLEAN C 04/21/18 17:00 Urine Color YELLOW 04/21/18 17:00 Urine Clarity CLEAR (CLEAR) 04/21/18 17:00 Urine pH 6.0 (4.6 - 8.0) 04/21/18 17:00 Ur Specific [place] 1.015 (1.005-1.030) 04/21/18 17:00 Urine Protein NEGATIVE mg/dL (NEGATIVE) 04/21/18 17:00 Urine Glucose (UA) NEGATIVE mg/dL (NEGATIVE) 04/21/18 17:00 Urine Ketones NEGATIVE mg/dL (NEGATIVE) 04/21/18 17:00 Urine Blood NEGATIVE (NEGATIVE) 04/21/18 17:00 Urine Nitrate NEGATIVE (NEGATIVE) 04/21/18 17:00 Urine Bilirubin NEGATIVE (NEGATIVE) 04/21/18 17:00 Urine Urobilinogen 0.2 E.U./dL (0.2 - 1.0) 04/21/18 17:00 Ur Leukocyte Esterase NEGATIVE (NEGATIVE) 04/21/18 17:00 Urine RBC 0-2 /hpf (0-5) H 04/21/18 17:00 Urine WBC 2-5 /hpf (0-5) 04/21/18 17:00 Ur Epithelial Cells FEW /lpf (FEW) 04/21/18 17:00 Urine Bacteria FEW /hpf (NONE SEEN) 04/21/18 17:00 Urine Opiates Screen NEGATIVE (NEGATIVE) 04/21/18 17:00 Urine Methadone Screen NEGATIVE (NEGATIVE) 04/21/18 17:00 Ur Barbiturates Screen NEGATIVE (NEGATIVE) 04/21/18 17:00 Ur Tricyclics Screen NEGATIVE (NEGATIVE) 04/21/18 17:00 Ur Phencyclidine Scrn NEGATIVE (NEGATIVE) 04/21/18 17:00 Clozapine SEE REF. LAB REPORT 04/21/18 18:00 Amphetamines Screen NEGATIVE (NEGATIVE) 04/21/18 17:00 U Methamphetamines Scrn NEGATIVE (NEGATIVE) 04/21/18 17:00 U Benzodiazepines Scrn NEGATIVE (NEGATIVE) 04/21/18 17:00 U Cocaine Metab Screen NEGATIVE (NEGATIVE) 04/21/18 17:00 U Cannabinoids Screen NEGATIVE (NEGATIVE) 04/21/18 17:00 - Physical Exam Vitals and I&O: Vital Signs Temp 97.5 F 04/26/18 05:26 Pulse 57 04/26/18 05:26 Resp 20 04/26/18 05:26 BP 112/76 04/26/18 05:26 Pulse Ox 97 04/26/18 05:26 Intake & Output 04/25/18 04/26/18 04/26/18 18:59 06:59 18:59 Intake Total 300 Balance 300 Intake: Oral 300 Other: # Voids 2 # Bowel Movements 0 Active Medications: Current Medications Acetaminophen (Tylenol) 325 mg PO Q4HR PRN PRN Reason: Pain (Mild) Stop: 06/20/18 21:05 Cholecalciferol (Vitamin D3) 2,000 iu PO DAILY [facility] Stop: 06/21/18 08:59 Last Admin: 04/26/18 09:47 Dose: 2,000 iu Clozapine (Clozaril) 150 mg PO HS [facility] Stop: 06/25/18 20:59 Docusate Sodium (Colace) 100 mg PO BID [facility] Stop: 06/21/18 08:59 Last Admin: 04/26/18 09:47 Dose: 100 mg Fish Oil ([place] 3) 1,000 mg PO DAILY [facility] Stop: 06/21/18 08:59 Last Admin: 04/26/18 09:48 Dose: 1,000 mg Folic Acid (Folate) 1 mg PO DAILY [facility] Stop: 06/21/18 08:59 Last Admin: 04/26/18 09:48 Dose: 1 mg Magnesium Hydroxide (Milk Of Magnesia) 30 ml PO HS PRN PRN Reason: Constipation Stop: 06/20/18 21:05 Psyllium Hydrophilic Mucilloid (Metamucil) 1 pkt PO DAILY [facility] Stop: 06/21/18 08:59 Last Admin: 04/26/18 09:48 Dose: 1 pkt Simvastatin (Zocor) 40 mg PO HS [facility]; Protocol Stop: 06/21/18 20:59 Last Admin: 04/25/18 21:36 Dose: 40 mg General: alert, demented HEENT: NC/AT, PERRLA, EOMI, anicteric sclerae, throat clear Neck: Supple, No JVD, No thyromegaly, +2 carotid pulse wo bruit, No LAD Lungs: CTAB Cardiovascular: RRR, Normal S1, Normal S2, without murmur Abdomen: soft, non-tender, non-distended Extremities: clear Neurological: no change Internal Medicine Assmt/Plan - Assessment Assessment: 1.HYPERLIPIDEMIA. 2.DJD. 3.DEMENTIA. 4.PSYCHOSIS. - Plan Plan: CONTINUE ON CURRENT MEDICATION AND DIET.
--- NOTE | 2018-04-26 21:03 | Progress Notes ---
DATE: 04/26/2018 Case was discussed with staff of the patient, reviewed records. The patient has been isolating himself. He continues to be internally preoccupied, unpredictable, impulsive, needing redirection. He is sleeping well, eating well. He is compliant with the medication with no side effects, no sedation, no nausea, and no extrapyramidal symptoms. I will be increasing his Clozaril further to 150 mg a day to help improve his psychotic symptoms. We will continue outpatient group therapy, milieu therapy, and adjust medication as needed. JOB# [id number]
[2018-04-27] MEDS: Multivitamin w/ Minerals Tab PO SCH (09:08)
[2018-04-27] MEDS: Fish Oil 1,000 MG SGL PO SCH (09:08)
--- NOTE | 2018-04-27 12:55 | Progress Notes ---
DATE: 04/27/2018 SUBJECTIVE: Case was discussed with staff of the patient, reviewed records. The patient is internally preoccupied, unable to carry on a conversation and make safe plan for self-care. He continues to be unpredictable, impulsive, needing redirection. He tolerates ____ and Clozaril 250 mg a day with no side effects, no sedation, no nausea, no extrapyramidal symptoms. No constipation and sleeping well, eating well. No side effects with the medication, no sedation and we will continue outpatient group therapy, milieu therapy, adjust medication as needed. JOB# [id number]
--- NOTE | 2018-04-27 19:39 | Internal Medicine Prog Note ---
Internal Medicine Subjective - Subjective Service Date: 04/27/18 Patient seen and examined:: with staff Patient is:: awake, verbal, ambulating, confused Per staff patient has:: no adverse event Internal Medicine Objective - Results Result Diagrams: 04/21/18 18:00 04/21/18 18:00 Recent Labs: Laboratory Last Values WBC 9.9 Th/cmm (4.8-10.8) 04/21/18 18:00 RBC 4.51 Mil/cmm (3.80-5.80) 04/21/18 18:00 Hgb 14.2 gm/dL (12-16) 04/21/18 18:00 Hct 42.6 % (41.0-60) 04/21/18 18:00 MCV 94.4 fl (80-99) 04/21/18 18:00 MCH 31.5 pg (27.0-31.0) H 04/21/18 18:00 MCHC Differential 33.3 pg (28.0-36.0) 04/21/18 18:00 RDW 13.6 % (11.5-20.0) 04/21/18 18:00 Plt Count 176 Th/cmm (150-400) 04/21/18 18:00 MPV 8.8 fl 04/21/18 18:00 Neutrophils % 74.4 % (40.0-80.0) 04/21/18 18:00 Lymphocytes % 14.6 % (20.0-50.0) L 04/21/18 18:00 Monocytes % 4.9 % (2.0-10.0) 04/21/18 18:00 Eosinophils % 6.0 % (0.0-5.0) H 04/21/18 18:00 Basophils % 0.1 % (0.0-2.0) 04/21/18 18:00 Sodium 142 mEq/L (136-145) 04/21/18 18:00 Potassium 3.7 mEq/L (3.5-5.1) 04/21/18 18:00 Chloride 109 mEq/L (98-107) H 04/21/18 18:00 Carbon Dioxide 25.4 mEq/L (21.0-31.0) 04/21/18 18:00 Anion Gap 11.3 (7.0-16.0) 04/21/18 18:00 BUN 22 mg/dL (7-25) 04/21/18 18:00 Creatinine 1.1 mg/dL (0.7-1.3) 04/21/18 18:00 Est GFR ( Amer) TNP 04/21/18 18:00 Est GFR (Non-Af Amer) TNP 04/21/18 18:00 BUN/Creatinine Ratio 20.0 04/21/18 18:00 Glucose 110 mg/dL (70-105) H 04/21/18 18:00 Calcium 9.4 mg/dL (8.6-10.3) 04/21/18 18:00 Phosphorus 3.1 mg/dL (2.5-5.0) 04/21/18 18:00 Magnesium 2.0 mg/dL (1.9-2.7) 04/21/18 18:00 Total Bilirubin 0.3 mg/dL (0.3-1.0) 04/21/18 18:00 AST 13 U/L (13-39) 04/21/18 18:00 ALT 14 U/L (7-52) 04/21/18 18:00 Alkaline Phosphatase 81 U/L (34-104) 04/21/18 18:00 Total Protein 6.3 gm/dL (6.0-8.3) 04/21/18 18:00 Albumin 3.6 gm/dL (4.2-5.5) L 04/21/18 18:00 Globulin 2.7 gm/dL 04/21/18 18:00 Albumin/Globulin Ratio 1.3 (1.0-1.8) 04/21/18 18:00 Triglycerides 269 mg/dL (<150) H 04/21/18 18:00 Cholesterol 154 mg/dL (<200) 04/21/18 18:00 LDL Cholesterol Direct 90 mg/dL (75-193) 04/21/18 18:00 HDL Cholesterol 46 mg/dL (23-92) 04/21/18 18:00 Urine Source CLEAN C 04/21/18 17:00 Urine Color YELLOW 04/21/18 17:00 Urine Clarity CLEAR (CLEAR) 04/21/18 17:00 Urine pH 6.0 (4.6 - 8.0) 04/21/18 17:00 Ur Specific [place] 1.015 (1.005-1.030) 04/21/18 17:00 Urine Protein NEGATIVE mg/dL (NEGATIVE) 04/21/18 17:00 Urine Glucose (UA) NEGATIVE mg/dL (NEGATIVE) 04/21/18 17:00 Urine Ketones NEGATIVE mg/dL (NEGATIVE) 04/21/18 17:00 Urine Blood NEGATIVE (NEGATIVE) 04/21/18 17:00 Urine Nitrate NEGATIVE (NEGATIVE) 04/21/18 17:00 Urine Bilirubin NEGATIVE (NEGATIVE) 04/21/18 17:00 Urine Urobilinogen 0.2 E.U./dL (0.2 - 1.0) 04/21/18 17:00 Ur Leukocyte Esterase NEGATIVE (NEGATIVE) 04/21/18 17:00 Urine RBC 0-2 /hpf (0-5) H 04/21/18 17:00 Urine WBC 2-5 /hpf (0-5) 04/21/18 17:00 Ur Epithelial Cells FEW /lpf (FEW) 04/21/18 17:00 Urine Bacteria FEW /hpf (NONE SEEN) 04/21/18 17:00 Urine Opiates Screen NEGATIVE (NEGATIVE) 04/21/18 17:00 Urine Methadone Screen NEGATIVE (NEGATIVE) 04/21/18 17:00 Ur Barbiturates Screen NEGATIVE (NEGATIVE) 04/21/18 17:00 Ur Tricyclics Screen NEGATIVE (NEGATIVE) 04/21/18 17:00 Ur Phencyclidine Scrn NEGATIVE (NEGATIVE) 04/21/18 17:00 Clozapine SEE REF. LAB REPORT 04/21/18 18:00 Amphetamines Screen NEGATIVE (NEGATIVE) 04/21/18 17:00 U Methamphetamines Scrn NEGATIVE (NEGATIVE) 04/21/18 17:00 U Benzodiazepines Scrn NEGATIVE (NEGATIVE) 04/21/18 17:00 U Cocaine Metab Screen NEGATIVE (NEGATIVE) 04/21/18 17:00 U Cannabinoids Screen NEGATIVE (NEGATIVE) 04/21/18 17:00 - Physical Exam Vitals and I&O: Vital Signs Temp 98.9 F 04/27/18 14:00 Pulse 64 04/27/18 14:00 Resp 20 04/27/18 14:00 BP 112/71 04/27/18 14:00 Pulse Ox 98 04/27/18 14:00 Intake & Output 04/27/18 04/27/18 04/28/18 06:59 18:59 06:59 Intake Total 120 Balance 120 Intake: Oral 120 Other: # Voids 3 # Bowel Movements 0 Active Medications: Current Medications Acetaminophen (Tylenol) 325 mg PO Q4HR PRN PRN Reason: Pain (Mild) Stop: 06/20/18 21:05 Cholecalciferol (Vitamin D3) 2,000 iu PO DAILY [facility] Stop: 06/21/18 08:59 Last Admin: 04/27/18 09:07 Dose: 2,000 iu Clozapine (Clozaril) 150 mg PO HS [facility] Stop: 06/25/18 20:59 Last Admin: 04/26/18 20:30 Dose: 150 mg Docusate Sodium (Colace) 100 mg PO BID [facility] Stop: 06/21/18 08:59 Last Admin: 04/27/18 16:00 Dose: 100 mg Fish Oil ([place] 3) 1,000 mg PO DAILY [facility] Stop: 06/21/18 08:59 Last Admin: 04/27/18 09:08 Dose: 1,000 mg Folic Acid (Folate) 1 mg PO DAILY [facility] Stop: 06/21/18 08:59 Last Admin: 04/27/18 09:08 Dose: 1 mg Magnesium Hydroxide (Milk Of Magnesia) 30 ml PO HS PRN PRN Reason: Constipation Stop: 06/20/18 21:05 Psyllium Hydrophilic Mucilloid (Metamucil) 1 pkt PO DAILY [facility] Stop: 06/21/18 08:59 Last Admin: 04/27/18 09:08 Dose: 1 pkt Simvastatin (Zocor) 40 mg PO [facility]; Protocol Stop: 06/21/18 20:59 Last Admin: 04/26/18 20:30 Dose: 40 mg General: alert, demented HEENT: NC/AT, PERRLA, EOMI, anicteric sclerae, throat clear Neck: Supple, No JVD, No thyromegaly, +2 carotid pulse wo bruit, No LAD Lungs: CTAB Cardiovascular: RRR, Normal S1, Normal S2, without murmur Abdomen: soft, non-tender, non-distended Extremities: clear Neurological: no change Internal Medicine Assmt/Plan - Assessment Assessment: 1.HYPERLIPIDEMIA. 2.DJD. 3.DEMENTIA. 4.PSYCHOSIS. - Plan Plan: CONTINUE ON CURRENT MEDICATION AND DIET. Nutritional Asmnt/Malnutr-PDOC - Dietary Evaluation Malnutrition Findings (Please click <Entered> for more info): Nutritional Asmnt/Malnutrition Start: 04/26/18 15: 03 Text: Status: Complete Freq: Protocol: Document 04/26/18 15:05 [email or web address] (Rec: 04/26/18 15:14 LCGARY [email or web address]) Nutritional Asmnt/Malnutrition Patient General Information Nutritional Screening Moderate Risk Diagnosis psychosis Pertinent Medical Hx/Surgical Hx dyslipidemia, PUD/GERD, anemia , schizophrenia, dysphagia Subjective Information Pt seen sleeping at time of viist. Per EMR, PO intake 100% . Current Diet Order/ Nutrition Support [facility] soft ground Pertinent Medications vit D3, colace, omega 3, folate Pertinent Labs 04/21 Cl 109, Glucose 110, alb 3.6 Nutritional Hx/Data Height 1.75 m Height (Calculated Centimeters) 175.3 Current Weight (lbs) 73.936 kg Weight (Calculated Kilograms) 73.9 Weight (Calculated Grams) 46301.6 [place] Body Weight 160 Body Mass Index (BMI) 24.0 Weight Status Approriate GI Symptoms GI Symptoms None Last BM 04/26 Difficult in: None Skin Integrity/Comment: intact Current %PO Good (75-100%) Estimated Nutritional Goals BEE in Kcals: Using Current wt Calories/Kcals/Kg 25-30 Kcals Calculated 7148-2771 Protein: Using Current wt Protein g/k Protein Calculated 74 Fluid: ml 1850-2220ml (1ml/kcal) Nutritional Problem No current Nutrition Prob Problem N/A Malnutrition Alert Is there a minimum of two criteria No selected? Query Text:Check all the applicable criteria. A minimum of two criteria are recommended for diagnosis of either severe or non-severe malnutrition. Malnutrition Related to Morbid Obesity Malnutrition related to morbid obesity No Intervention/Recommendation Comments 1. Continue with [facility] soft chopped diet as ordered. 2. Monitor PO intake, wt, labs and skin integrity 3. F/U as low risk in 7 days Expected Outcomes/Goals Expected Outcomes/Goals 1. PO intake to meet at least 75% of nutritional needs. 2. Wt stability, skin to remain intact, labs to approach WNL.
[2018-04-28] MEDS: Fish Oil 1,000 MG SGL PO SCH (08:34)
[2018-04-28] MEDS: Multivitamin w/ Minerals Tab PO SCH (08:34)
--- NOTE | 2018-04-28 17:18 | Internal Medicine Prog Note ---
Internal Medicine Subjective - Subjective Service Date: 04/28/18 Patient is:: awake, verbal, ambulating, confused Per staff patient has:: no adverse event Internal Medicine Objective - Results Result Diagrams: 04/21/18 18:00 04/21/18 18:00 Recent Labs: Laboratory Last Values WBC 9.9 Th/cmm (4.8-10.8) 04/21/18 18:00 RBC 4.51 Mil/cmm (3.80-5.80) 04/21/18 18:00 Hgb 14.2 gm/dL (12-16) 04/21/18 18:00 Hct 42.6 % (41.0-60) 04/21/18 18:00 MCV 94.4 fl (80-99) 04/21/18 18:00 MCH 31.5 pg (27.0-31.0) H 04/21/18 18:00 MCHC Differential 33.3 pg (28.0-36.0) 04/21/18 18:00 RDW 13.6 % (11.5-20.0) 04/21/18 18:00 Plt Count 176 Th/cmm (150-400) 04/21/18 18:00 MPV 8.8 fl 04/21/18 18:00 Neutrophils % 74.4 % (40.0-80.0) 04/21/18 18:00 Lymphocytes % 14.6 % (20.0-50.0) L 04/21/18 18:00 Monocytes % 4.9 % (2.0-10.0) 04/21/18 18:00 Eosinophils % 6.0 % (0.0-5.0) H 04/21/18 18:00 Basophils % 0.1 % (0.0-2.0) 04/21/18 18:00 Sodium 142 mEq/L (136-145) 04/21/18 18:00 Potassium 3.7 mEq/L (3.5-5.1) 04/21/18 18:00 Chloride 109 mEq/L (98-107) H 04/21/18 18:00 Carbon Dioxide 25.4 mEq/L (21.0-31.0) 04/21/18 18:00 Anion Gap 11.3 (7.0-16.0) 04/21/18 18:00 BUN 22 mg/dL (7-25) 04/21/18 18:00 Creatinine 1.1 mg/dL (0.7-1.3) 04/21/18 18:00 Est GFR ( Amer) TNP 04/21/18 18:00 Est GFR (Non-Af Amer) TNP 04/21/18 18:00 BUN/Creatinine Ratio 20.0 04/21/18 18:00 Glucose 110 mg/dL (70-105) H 04/21/18 18:00 Calcium 9.4 mg/dL (8.6-10.3) 04/21/18 18:00 Phosphorus 3.1 mg/dL (2.5-5.0) 04/21/18 18:00 Magnesium 2.0 mg/dL (1.9-2.7) 04/21/18 18:00 Total Bilirubin 0.3 mg/dL (0.3-1.0) 04/21/18 18:00 AST 13 U/L (13-39) 04/21/18 18:00 ALT 14 U/L (7-52) 04/21/18 18:00 Alkaline Phosphatase 81 U/L (34-104) 04/21/18 18:00 Total Protein 6.3 gm/dL (6.0-8.3) 04/21/18 18:00 Albumin 3.6 gm/dL (4.2-5.5) L 04/21/18 18:00 Globulin 2.7 gm/dL 04/21/18 18:00 Albumin/Globulin Ratio 1.3 (1.0-1.8) 04/21/18 18:00 Triglycerides 269 mg/dL (<150) H 04/21/18 18:00 Cholesterol 154 mg/dL (<200) 04/21/18 18:00 LDL Cholesterol Direct 90 mg/dL (75-193) 04/21/18 18:00 HDL Cholesterol 46 mg/dL (23-92) 04/21/18 18:00 Urine Source CLEAN C 04/21/18 17:00 Urine Color YELLOW 04/21/18 17:00 Urine Clarity CLEAR (CLEAR) 04/21/18 17:00 Urine pH 6.0 (4.6 - 8.0) 04/21/18 17:00 Ur Specific [place] 1.015 (1.005-1.030) 04/21/18 17:00 Urine Protein NEGATIVE mg/dL (NEGATIVE) 04/21/18 17:00 Urine Glucose (UA) NEGATIVE mg/dL (NEGATIVE) 04/21/18 17:00 Urine Ketones NEGATIVE mg/dL (NEGATIVE) 04/21/18 17:00 Urine Blood NEGATIVE (NEGATIVE) 04/21/18 17:00 Urine Nitrate NEGATIVE (NEGATIVE) 04/21/18 17:00 Urine Bilirubin NEGATIVE (NEGATIVE) 04/21/18 17:00 Urine Urobilinogen 0.2 E.U./dL (0.2 - 1.0) 04/21/18 17:00 Ur Leukocyte Esterase NEGATIVE (NEGATIVE) 04/21/18 17:00 Urine RBC 0-2 /hpf (0-5) H 04/21/18 17:00 Urine WBC 2-5 /hpf (0-5) 04/21/18 17:00 Ur Epithelial Cells FEW /lpf (FEW) 04/21/18 17:00 Urine Bacteria FEW /hpf (NONE SEEN) 04/21/18 17:00 Urine Opiates Screen NEGATIVE (NEGATIVE) 04/21/18 17:00 Urine Methadone Screen NEGATIVE (NEGATIVE) 04/21/18 17:00 Ur Barbiturates Screen NEGATIVE (NEGATIVE) 04/21/18 17:00 Ur Tricyclics Screen NEGATIVE (NEGATIVE) 04/21/18 17:00 Ur Phencyclidine Scrn NEGATIVE (NEGATIVE) 04/21/18 17:00 Clozapine SEE REF. LAB REPORT 04/21/18 18:00 Amphetamines Screen NEGATIVE (NEGATIVE) 04/21/18 17:00 U Methamphetamines Scrn NEGATIVE (NEGATIVE) 04/21/18 17:00 U Benzodiazepines Scrn NEGATIVE (NEGATIVE) 04/21/18 17:00 U Cocaine Metab Screen NEGATIVE (NEGATIVE) 04/21/18 17:00 U Cannabinoids Screen NEGATIVE (NEGATIVE) 04/21/18 17:00 - Physical Exam Vitals and I&O: Vital Signs Temp 98.2 F 04/28/18 14:00 Pulse 63 04/28/18 14:00 Resp 18 04/28/18 14:00 BP 128/81 04/28/18 14:00 Pulse Ox 98 04/28/18 14:00 Intake & Output 04/27/18 04/28/18 04/28/18 18:59 06:59 18:59 Intake Total 480 Balance 480 Intake: Oral 480 Other: # Voids 2 Active Medications: Current Medications Acetaminophen (Tylenol) 325 mg PO Q4HR PRN PRN Reason: Pain (Mild) Stop: 06/20/18 21:05 Cholecalciferol (Vitamin D3) 2,000 iu PO DAILY [facility] Stop: 06/21/18 08:59 Last Admin: 04/28/18 08:33 Dose: 2,000 iu Clozapine (Clozaril) 175 mg PO HS [facility] Stop: 06/27/18 20:59 Docusate Sodium (Colace) 100 mg PO BID [facility] Stop: 06/21/18 08:59 Last Admin: 04/28/18 16:33 Dose: 100 mg Fish Oil ([place] 3) 1,000 mg PO DAILY [facility] Stop: 06/21/18 08:59 Last Admin: 04/28/18 08:34 Dose: 1,000 mg Folic Acid (Folate) 1 mg PO DAILY [facility] Stop: 06/21/18 08:59 Last Admin: 04/28/18 08:34 Dose: 1 mg Magnesium Hydroxide (Milk Of Magnesia) 30 ml PO HS PRN PRN Reason: Constipation Stop: 06/20/18 21:05 Psyllium Hydrophilic Mucilloid (Metamucil) 1 pkt PO DAILY [facility] Stop: 06/21/18 08:59 Last Admin: 04/28/18 08:34 Dose: 1 pkt Simvastatin (Zocor) 40 mg PO HS [facility]; Protocol Stop: 06/21/18 20:59 Last Admin: 04/27/18 21:07 Dose: 40 mg General: alert, demented HEENT: NC/AT, PERRLA, EOMI, anicteric sclerae, throat clear Neck: Supple, No JVD, No thyromegaly, +2 carotid pulse wo bruit, No LAD Lungs: CTAB Cardiovascular: RRR, Normal S1, Normal S2, without murmur Abdomen: soft, non-tender, non-distended Extremities: clear Neurological: no change Internal Medicine Assmt/Plan - Assessment Assessment: 1.HYPERLIPIDEMIA. 2.DJD. 3.DEMENTIA. 4.PSYCHOSIS. - Plan Plan: CONTINUE ON CURRENT MEDICATION AND DIET. Nutritional Asmnt/Malnutr-PDOC - Dietary Evaluation Malnutrition Findings (Please click <Entered> for more info): Nutritional Asmnt/Malnutrition Start: 04/26/18 15: 03 Text: Status: Complete Freq: Protocol: Document 04/26/18 15:05 [email or web address] (Rec: 04/26/18 15:14 BUFFYRitika [email or web address]) Nutritional Asmnt/Malnutrition Patient General Information Nutritional Screening Moderate Risk Diagnosis psychosis Pertinent Medical Hx/Surgical Hx dyslipidemia, PUD/GERD, anemia , schizophrenia, dysphagia Subjective Information Pt seen sleeping at time of viist. Per EMR, PO intake 100% . Current Diet Order/ Nutrition Support [facility] soft ground Pertinent Medications vit D3, colace, omega 3, folate Pertinent Labs 04/21 Cl 109, Glucose 110, alb 3.6 Nutritional Hx/Data Height 1.75 m Height (Calculated Centimeters) 175.3 Current Weight (lbs) 73.936 kg Weight (Calculated Kilograms) 73.9 Weight (Calculated Grams) 70871.6 [place] Body Weight 160 Body Mass Index (BMI) 24.0 Weight Status Approriate GI Symptoms GI Symptoms None Last BM 04/26 Difficult in: None Skin Integrity/Comment: intact Current %PO Good (75-100%) Estimated Nutritional Goals BEE in Kcals: Using Current wt Calories/Kcals/Kg 25-30 Kcals Calculated 7012-4051 Protein: Using Current wt Protein g/k Protein Calculated 74 Fluid: ml 1850-2220ml (1ml/kcal) Nutritional Problem No current Nutrition Prob Problem N/A Malnutrition Alert Is there a minimum of two criteria No selected? Query Text:Check all the applicable criteria. A minimum of two criteria are recommended for diagnosis of either severe or non-severe malnutrition. Malnutrition Related to Morbid Obesity Malnutrition related to morbid obesity No Intervention/Recommendation Comments 1. Continue with [facility] soft chopped diet as ordered. 2. Monitor PO intake, wt, labs and skin integrity 3. F/U as low risk in 7 days Expected Outcomes/Goals Expected Outcomes/Goals 1. PO intake to meet at least 75% of nutritional needs. 2. Wt stability, skin to remain intact, labs to approach WNL.
--- NOTE | 2018-04-29 00:36 | Progress Notes ---
DATE: 04/28/2018 Case was discussed with staff of the patient, reviewed records. The patient continues to be internally preoccupied, staying to himself, frowning constricted affect noted by me as part in a meaningful conversation, unpredictable, impulsive with episodes of agitation and irritability. I increased his Clozaril to 175 mg to 150 mg at bedtime likely no further up to 175 today and no side effects with the medication, no sedation, no nausea, no extrapyramidal symptoms. We will continue outpatient group therapy, milieu therapy, adjust the medication as needed. JOB# [id number]
[2018-04-29] MEDS: Fish Oil 1,000 MG SGL PO SCH (09:13)
[2018-04-29] MEDS: Multivitamin w/ Minerals Tab PO SCH (09:14)
[2018-04-29 10:12] LABS: % BASOPHILS 0.2 % (0.0-2.0); % EOSINOPHILS 5.8 % (0.0-5.0); % LYMPHOCYTES 16.6 % (20.0-50.0); % MONOCYTES 5.9 % (2.0-10.0); % NEUTROPHILS 71.5 % (40.0-80.0); EOSINOPHILE ABSOLUTE 0.5 Th/cmm (0.1-0.4); HEMATOCRIT 41.2 % (41.0-60); HEMOGLOBIN 13.8 gm/dL (12-16); LYMPHOCYTE ABSOLUTE 1.3 Th/cmm (1.5-3.0); MEAN CELL VOLUME 94.4 fl (80-99); MEAN CORPUSCULAR HEMOGLOBIN 31.7 pg (27.0-31.0); MEAN CORPUSCULAR HGB CONC 33.5 pg (28.0-36.0); MEAN PLATELET VOLUME 9.4 fl; MONOCYTE ABSOLUTE 0.5 Th/cmm (0.3-1.0); NEUTROPHILE ABSOLUTE 5.8 Th/cmm (1.8-8.0); PLATELET COUNT 174 Th/cmm (150-400); RED BLOOD COUNT 4.37 Mil/cmm (3.80-5.80); RED CELL DISTRIBUTION WIDTH 13.1 % (11.5-20.0); WHITE BLOOD COUNT 8.1 Th/cmm (4.8-10.8)
--- NOTE | 2018-04-29 15:32 | General Progress Note ---
Subjective - Review of Systems Service Date: 04/29/18 Subjective: resting comfortably no distress Objective - Results Result Diagrams: 04/29/18 09:50 04/21/18 18:00 Recent Labs: Laboratory Last Values WBC 8.1 Th/cmm (4.8-10.8) 04/29/18 09:50 RBC 4.37 Mil/cmm (3.80-5.80) 04/29/18 09:50 Hgb 13.8 gm/dL (12-16) 04/29/18 09:50 Hct 41.2 % (41.0-60) 04/29/18 09:50 MCV 94.4 fl (80-99) 04/29/18 09:50 MCH 31.7 pg (27.0-31.0) H 04/29/18 09:50 MCHC Differential 33.5 pg (28.0-36.0) 04/29/18 09:50 RDW 13.1 % (11.5-20.0) 04/29/18 09:50 Plt Count 174 Th/cmm (150-400) 04/29/18 09:50 MPV 9.4 fl 04/29/18 09:50 Neutrophils % 71.5 % (40.0-80.0) 04/29/18 09:50 Lymphocytes % 16.6 % (20.0-50.0) L 04/29/18 09:50 Monocytes % 5.9 % (2.0-10.0) 04/29/18 09:50 Eosinophils % 5.8 % (0.0-5.0) H 04/29/18 09:50 Basophils % 0.2 % (0.0-2.0) 04/29/18 09:50 Sodium 142 mEq/L (136-145) 04/21/18 18:00 Potassium 3.7 mEq/L (3.5-5.1) 04/21/18 18:00 Chloride 109 mEq/L (98-107) H 04/21/18 18:00 Carbon Dioxide 25.4 mEq/L (21.0-31.0) 04/21/18 18:00 Anion Gap 11.3 (7.0-16.0) 04/21/18 18:00 BUN 22 mg/dL (7-25) 04/21/18 18:00 Creatinine 1.1 mg/dL (0.7-1.3) 04/21/18 18:00 Est GFR ( Amer) TNP 04/21/18 18:00 Est GFR (Non-Af Amer) TNP 04/21/18 18:00 BUN/Creatinine Ratio 20.0 04/21/18 18:00 Glucose 110 mg/dL (70-105) H 04/21/18 18:00 Calcium 9.4 mg/dL (8.6-10.3) 04/21/18 18:00 Phosphorus 3.1 mg/dL (2.5-5.0) 04/21/18 18:00 Magnesium 2.0 mg/dL (1.9-2.7) 04/21/18 18:00 Total Bilirubin 0.3 mg/dL (0.3-1.0) 04/21/18 18:00 AST 13 U/L (13-39) 04/21/18 18:00 ALT 14 U/L (7-52) 04/21/18 18:00 Alkaline Phosphatase 81 U/L (34-104) 04/21/18 18:00 Total Protein 6.3 gm/dL (6.0-8.3) 04/21/18 18:00 Albumin 3.6 gm/dL (4.2-5.5) L 04/21/18 18:00 Globulin 2.7 gm/dL 04/21/18 18:00 Albumin/Globulin Ratio 1.3 (1.0-1.8) 04/21/18 18:00 Triglycerides 269 mg/dL (<150) H 04/21/18 18:00 Cholesterol 154 mg/dL (<200) 04/21/18 18:00 LDL Cholesterol Direct 90 mg/dL (75-193) 04/21/18 18:00 HDL Cholesterol 46 mg/dL (23-92) 04/21/18 18:00 Urine Source CLEAN C 04/21/18 17:00 Urine Color YELLOW 04/21/18 17:00 Urine Clarity CLEAR (CLEAR) 04/21/18 17:00 Urine pH 6.0 (4.6 - 8.0) 04/21/18 17:00 Ur Specific [place] 1.015 (1.005-1.030) 04/21/18 17:00 Urine Protein NEGATIVE mg/dL (NEGATIVE) 04/21/18 17:00 Urine Glucose (UA) NEGATIVE mg/dL (NEGATIVE) 04/21/18 17:00 Urine Ketones NEGATIVE mg/dL (NEGATIVE) 04/21/18 17:00 Urine Blood NEGATIVE (NEGATIVE) 04/21/18 17:00 Urine Nitrate NEGATIVE (NEGATIVE) 04/21/18 17:00 Urine Bilirubin NEGATIVE (NEGATIVE) 04/21/18 17:00 Urine Urobilinogen 0.2 E.U./dL (0.2 - 1.0) 04/21/18 17:00 Ur Leukocyte Esterase NEGATIVE (NEGATIVE) 04/21/18 17:00 Urine RBC 0-2 /hpf (0-5) H 04/21/18 17:00 Urine WBC 2-5 /hpf (0-5) 04/21/18 17:00 Ur Epithelial Cells FEW /lpf (FEW) 04/21/18 17:00 Urine Bacteria FEW /hpf (NONE SEEN) 04/21/18 17:00 Urine Opiates Screen NEGATIVE (NEGATIVE) 04/21/18 17:00 Urine Methadone Screen NEGATIVE (NEGATIVE) 04/21/18 17:00 Ur Barbiturates Screen NEGATIVE (NEGATIVE) 04/21/18 17:00 Ur Tricyclics Screen NEGATIVE (NEGATIVE) 04/21/18 17:00 Ur Phencyclidine Scrn NEGATIVE (NEGATIVE) 04/21/18 17:00 Clozapine SEE REF. LAB REPORT 04/21/18 18:00 Amphetamines Screen NEGATIVE (NEGATIVE) 04/21/18 17:00 U Methamphetamines Scrn NEGATIVE (NEGATIVE) 04/21/18 17:00 U Benzodiazepines Scrn NEGATIVE (NEGATIVE) 04/21/18 17:00 U Cocaine Metab Screen NEGATIVE (NEGATIVE) 04/21/18 17:00 U Cannabinoids Screen NEGATIVE (NEGATIVE) 04/21/18 17:00 - Physical Exam Vitals and I&O: Vital Signs Temp 97.4 F 04/29/18 14:25 Pulse 111 04/29/18 14:25 Resp 18 04/29/18 14:25 BP 100/72 04/29/18 14:25 Pulse Ox 98 04/29/18 14:25 Intake & Output 04/28/18 04/29/18 04/29/18 18:59 06:59 18:59 Intake Total 360 Balance 360 Intake: Oral 360 Other: # Voids 3 # Bowel Movements 0 Active Medications: Current Medications Acetaminophen (Tylenol) 325 mg PO Q4HR PRN PRN Reason: Pain (Mild) Stop: 06/20/18 21:05 Cholecalciferol (Vitamin D3) 2,000 iu PO DAILY [facility] Stop: 06/21/18 08:59 Last Admin: 04/29/18 09:13 Dose: 2,000 iu Clozapine (Clozaril) 175 mg PO HS [facility] Stop: 06/27/18 20:59 Last Admin: 04/28/18 20:38 Dose: 175 mg Docusate Sodium (Colace) 100 mg PO BID [facility] Stop: 06/21/18 08:59 Last Admin: 04/29/18 09:14 Dose: 100 mg Fish Oil ([place] 3) 1,000 mg PO DAILY [facility] Stop: 06/21/18 08:59 Last Admin: 04/29/18 09:13 Dose: 1,000 mg Folic Acid (Folate) 1 mg PO DAILY [facility] Stop: 06/21/18 08:59 Last Admin: 04/29/18 09:13 Dose: 1 mg Magnesium Hydroxide (Milk Of Magnesia) 30 ml PO HS PRN PRN Reason: Constipation Stop: 06/20/18 21:05 Psyllium Hydrophilic Mucilloid (Metamucil) 1 pkt PO DAILY [facility] Stop: 06/21/18 08:59 Last Admin: 04/29/18 09:14 Dose: 1 pkt Simvastatin (Zocor) 40 mg PO HS [facility]; Protocol Stop: 06/21/18 20:59 Last Admin: 04/28/18 20:38 Dose: 40 mg General: No acute distress HEENT: Atraumatic, PERRLA Neck: Supple, JVD, Thyromegaly Cardiovascular: Regular rate, Normal S1, Normal S2 Lungs: Clear to auscultation Abdomen: Bowel sounds, Soft Assessment/Plan - Assessment Assessment: 1.HYPERLIPIDEMIA. 2.DJD. 3.DEMENTIA. 4.PSYCHOSIS. - Plan Plan: continue current treatment Nutritional Asmnt/Malnutr-PDOC - Dietary Evaluation Malnutrition Findings (Please click <Entered> for more info): Nutritional Asmnt/Malnutrition Start: 04/26/18 15: 03 Text: Status: Complete Freq: Protocol: Document 04/26/18 15:05 GREGORY (Rec: 04/26/18 15:14 LCHENG [email or web address]) Nutritional Asmnt/Malnutrition Patient General Information Nutritional Screening Moderate Risk Diagnosis psychosis Pertinent Medical Hx/Surgical Hx dyslipidemia, PUD/GERD, anemia , schizophrenia, dysphagia Subjective Information Pt seen sleeping at time of viist. Per EMR, PO intake 100% . Current Diet Order/ Nutrition Support [facility] soft ground Pertinent Medications vit D3, colace, omega 3, folate Pertinent Labs 04/21 Cl 109, Glucose 110, alb 3.6 Nutritional Hx/Data Height 1.75 m Height (Calculated Centimeters) 175.3 Current Weight (lbs) 73.936 kg Weight (Calculated Kilograms) 73.9 Weight (Calculated Grams) 79624.6 [place] Body Weight 160 Body Mass Index (BMI) 24.0 Weight Status Approriate GI Symptoms GI Symptoms None Last BM 04/26 Difficult in: None Skin Integrity/Comment: intact Current %PO Good (75-100%) Estimated Nutritional Goals BEE in Kcals: Using Current wt Calories/Kcals/Kg 25-30 Kcals Calculated 9359-4600 Protein: Using Current wt Protein g/k Protein Calculated 74 Fluid: ml 1850-2220ml (1ml/kcal) Nutritional Problem No current Nutrition Prob Problem N/A Malnutrition Alert Is there a minimum of two criteria No selected? Query Text:Check all the applicable criteria. A minimum of two criteria are recommended for diagnosis of either severe or non-severe malnutrition. Malnutrition Related to Morbid Obesity Malnutrition related to morbid obesity No Intervention/Recommendation Comments 1. Continue with [facility] soft chopped diet as ordered. 2. Monitor PO intake, wt, labs and skin integrity 3. F/U as low risk in 7 days Expected Outcomes/Goals Expected Outcomes/Goals 1. PO intake to meet at least 75% of nutritional needs. 2. Wt stability, skin to remain intact, labs to approach WNL.
--- NOTE | 2018-04-30 05:01 | Progress Notes ---
DATE: 04/29/2018 The patient was seen and evaluated. The patient's chart reviewed. COVERING FOR: Dr. Booth IDENTIFYING DATA: This is a 72-year-old male who was initially brought in here for acting out, combative and agitated behavior. CURRENT MEDICATIONS: Include clozapine at nighttime. LABORATORY AND DIAGNOSTIC DATA: CBC with differential with normal lytes. CMP normal limits. Triglycerides 269. UA negative. Today on [id number] evaluation, the patient is in his room, easily irritable upon approach, does not know why he is here, does not give much information about his previous psychiatric intervention. MENTAL STATUS EXAMINATION: Disorganized and suspicious. ASSESSMENT AND PLAN: History of schizophrenia, chronic type with extensive aggressive behavior, unable to formulate a safe plan. We will continue with the current medication regimen of the Clozaril and continue with this treatment as he has tolerated without complications. He is currently tolerating the recent increase of his Clozaril. No EPS. No headaches. No shortness of breath or chest pains endorsed by the patient. JOB# [id number]
[2018-04-30] MEDS: Fish Oil 1,000 MG SGL PO SCH (08:52)
[2018-04-30] MEDS: Multivitamin w/ Minerals Tab PO SCH (08:52)
--- NOTE | 2018-04-30 19:48 | General Progress Note ---
Subjective - Review of Systems Service Date: 04/30/18 Subjective: resting comfortably no distress Objective - Results Result Diagrams: 04/29/18 09:50 04/21/18 18:00 Recent Labs: Laboratory Last Values WBC 8.1 Th/cmm (4.8-10.8) 04/29/18 09:50 RBC 4.37 Mil/cmm (3.80-5.80) 04/29/18 09:50 Hgb 13.8 gm/dL (12-16) 04/29/18 09:50 Hct 41.2 % (41.0-60) 04/29/18 09:50 MCV 94.4 fl (80-99) 04/29/18 09:50 MCH 31.7 pg (27.0-31.0) H 04/29/18 09:50 MCHC Differential 33.5 pg (28.0-36.0) 04/29/18 09:50 RDW 13.1 % (11.5-20.0) 04/29/18 09:50 Plt Count 174 Th/cmm (150-400) 04/29/18 09:50 MPV 9.4 fl 04/29/18 09:50 Neutrophils % 71.5 % (40.0-80.0) 04/29/18 09:50 Lymphocytes % 16.6 % (20.0-50.0) L 04/29/18 09:50 Monocytes % 5.9 % (2.0-10.0) 04/29/18 09:50 Eosinophils % 5.8 % (0.0-5.0) H 04/29/18 09:50 Basophils % 0.2 % (0.0-2.0) 04/29/18 09:50 Sodium 142 mEq/L (136-145) 04/21/18 18:00 Potassium 3.7 mEq/L (3.5-5.1) 04/21/18 18:00 Chloride 109 mEq/L (98-107) H 04/21/18 18:00 Carbon Dioxide 25.4 mEq/L (21.0-31.0) 04/21/18 18:00 Anion Gap 11.3 (7.0-16.0) 04/21/18 18:00 BUN 22 mg/dL (7-25) 04/21/18 18:00 Creatinine 1.1 mg/dL (0.7-1.3) 04/21/18 18:00 Est GFR ( Amer) TNP 04/21/18 18:00 Est GFR (Non-Af Amer) TNP 04/21/18 18:00 BUN/Creatinine Ratio 20.0 04/21/18 18:00 Glucose 110 mg/dL (70-105) H 04/21/18 18:00 Calcium 9.4 mg/dL (8.6-10.3) 04/21/18 18:00 Phosphorus 3.1 mg/dL (2.5-5.0) 04/21/18 18:00 Magnesium 2.0 mg/dL (1.9-2.7) 04/21/18 18:00 Total Bilirubin 0.3 mg/dL (0.3-1.0) 04/21/18 18:00 AST 13 U/L (13-39) 04/21/18 18:00 ALT 14 U/L (7-52) 04/21/18 18:00 Alkaline Phosphatase 81 U/L (34-104) 04/21/18 18:00 Total Protein 6.3 gm/dL (6.0-8.3) 04/21/18 18:00 Albumin 3.6 gm/dL (4.2-5.5) L 04/21/18 18:00 Globulin 2.7 gm/dL 04/21/18 18:00 Albumin/Globulin Ratio 1.3 (1.0-1.8) 04/21/18 18:00 Triglycerides 269 mg/dL (<150) H 04/21/18 18:00 Cholesterol 154 mg/dL (<200) 04/21/18 18:00 LDL Cholesterol Direct 90 mg/dL (75-193) 04/21/18 18:00 HDL Cholesterol 46 mg/dL (23-92) 04/21/18 18:00 Urine Source CLEAN C 04/21/18 17:00 Urine Color YELLOW 04/21/18 17:00 Urine Clarity CLEAR (CLEAR) 04/21/18 17:00 Urine pH 6.0 (4.6 - 8.0) 04/21/18 17:00 Ur Specific [place] 1.015 (1.005-1.030) 04/21/18 17:00 Urine Protein NEGATIVE mg/dL (NEGATIVE) 04/21/18 17:00 Urine Glucose (UA) NEGATIVE mg/dL (NEGATIVE) 04/21/18 17:00 Urine Ketones NEGATIVE mg/dL (NEGATIVE) 04/21/18 17:00 Urine Blood NEGATIVE (NEGATIVE) 04/21/18 17:00 Urine Nitrate NEGATIVE (NEGATIVE) 04/21/18 17:00 Urine Bilirubin NEGATIVE (NEGATIVE) 04/21/18 17:00 Urine Urobilinogen 0.2 E.U./dL (0.2 - 1.0) 04/21/18 17:00 Ur Leukocyte Esterase NEGATIVE (NEGATIVE) 04/21/18 17:00 Urine RBC 0-2 /hpf (0-5) H 04/21/18 17:00 Urine WBC 2-5 /hpf (0-5) 04/21/18 17:00 Ur Epithelial Cells FEW /lpf (FEW) 04/21/18 17:00 Urine Bacteria FEW /hpf (NONE SEEN) 04/21/18 17:00 Urine Opiates Screen NEGATIVE (NEGATIVE) 04/21/18 17:00 Urine Methadone Screen NEGATIVE (NEGATIVE) 04/21/18 17:00 Ur Barbiturates Screen NEGATIVE (NEGATIVE) 04/21/18 17:00 Ur Tricyclics Screen NEGATIVE (NEGATIVE) 04/21/18 17:00 Ur Phencyclidine Scrn NEGATIVE (NEGATIVE) 04/21/18 17:00 Clozapine SEE REF. LAB REPORT 04/21/18 18:00 Amphetamines Screen NEGATIVE (NEGATIVE) 04/21/18 17:00 U Methamphetamines Scrn NEGATIVE (NEGATIVE) 04/21/18 17:00 U Benzodiazepines Scrn NEGATIVE (NEGATIVE) 04/21/18 17:00 U Cocaine Metab Screen NEGATIVE (NEGATIVE) 04/21/18 17:00 U Cannabinoids Screen NEGATIVE (NEGATIVE) 04/21/18 17:00 - Physical Exam Vitals and I&O: Vital Signs Temp 97.8 F 04/30/18 14:28 Pulse 70 04/30/18 14:28 Resp 20 04/30/18 14:28 BP 114/68 04/30/18 14:28 Pulse Ox 97 04/30/18 14:28 Intake & Output 04/30/18 04/30/18 05/01/18 06:59 18:59 06:59 Intake Total 480 1200 Balance 480 1200 Intake: Oral 480 1200 Other: # Voids 2 4 # Bowel Movements 1 Active Medications: Current Medications Acetaminophen (Tylenol) 325 mg PO Q4HR PRN PRN Reason: Pain (Mild) Stop: 06/20/18 21:05 Cholecalciferol (Vitamin D3) 2,000 iu PO DAILY [facility] Stop: 06/21/18 08:59 Last Admin: 04/30/18 08:52 Dose: 2,000 iu Clozapine (Clozaril) 175 mg PO HS [facility] Stop: 06/27/18 20:59 Last Admin: 04/29/18 21:07 Dose: 175 mg Docusate Sodium (Colace) 100 mg PO BID [facility] Stop: 06/21/18 08:59 Last Admin: 04/30/18 16:57 Dose: 100 mg Fish Oil ([place] 3) 1,000 mg PO DAILY [facility] Stop: 06/21/18 08:59 Last Admin: 04/30/18 08:52 Dose: 1,000 mg Folic Acid (Folate) 1 mg PO DAILY [facility] Stop: 06/21/18 08:59 Last Admin: 04/30/18 08:52 Dose: 1 mg Magnesium Hydroxide (Milk Of Magnesia) 30 ml PO HS PRN PRN Reason: Constipation Stop: 06/20/18 21:05 Psyllium Hydrophilic Mucilloid (Metamucil) 1 pkt PO DAILY [facility] Stop: 06/21/18 08:59 Last Admin: 04/30/18 08:52 Dose: 1 pkt Simvastatin (Zocor) 40 mg PO HS [facility]; Protocol Stop: 06/21/18 20:59 Last Admin: 04/29/18 21:06 Dose: 40 mg General: No acute distress HEENT: Atraumatic, PERRLA Neck: Supple, JVD, Thyromegaly Cardiovascular: Regular rate, Normal S1, Normal S2 Lungs: Clear to auscultation Abdomen: Bowel sounds, Soft Assessment/Plan - Assessment Assessment: 1.HYPERLIPIDEMIA. 2.DJD. 3.DEMENTIA. 4.PSYCHOSIS. - Plan Plan: continue current treatment Nutritional Asmnt/Malnutr-PDOC - Dietary Evaluation Malnutrition Findings (Please click <Entered> for more info): Nutritional Asmnt/Malnutrition Start: 04/26/18 15: 03 Text: Status: Complete Freq: Protocol: Document 04/26/18 15:05 GREGORY (Rec: 04/26/18 15:14 [id number] [email or web address]) Nutritional Asmnt/Malnutrition Patient General Information Nutritional Screening Moderate Risk Diagnosis psychosis Pertinent Medical Hx/Surgical Hx dyslipidemia, PUD/GERD, anemia , schizophrenia, dysphagia Subjective Information Pt seen sleeping at time of viist. Per EMR, PO intake 100% . Current Diet Order/ Nutrition Support [facility] soft ground Pertinent Medications vit D3, colace, omega 3, folate Pertinent Labs 04/21 Cl 109, Glucose 110, alb 3.6 Nutritional Hx/Data Height 1.75 m Height (Calculated Centimeters) 175.3 Current Weight (lbs) 73.936 kg Weight (Calculated Kilograms) 73.9 Weight (Calculated Grams) 80599.6 [place] Body Weight 160 Body Mass Index (BMI) 24.0 Weight Status Approriate GI Symptoms GI Symptoms None Last BM 04/26 Difficult in: None Skin Integrity/Comment: intact Current %PO Good (75-100%) Estimated Nutritional Goals BEE in Kcals: Using Current wt Calories/Kcals/Kg 25-30 Kcals Calculated 6145-3629 Protein: Using Current wt Protein g/k Protein Calculated 74 Fluid: ml 1850-2220ml (1ml/kcal) Nutritional Problem No current Nutrition Prob Problem N/A Malnutrition Alert Is there a minimum of two criteria No selected? Query Text:Check all the applicable criteria. A minimum of two criteria are recommended for diagnosis of either severe or non-severe malnutrition. Malnutrition Related to Morbid Obesity Malnutrition related to morbid obesity No Intervention/Recommendation Comments 1. [facility] as ordered. 2. Monitor PO intake, wt, labs and skin integrity 3. F/U as low risk in 7 days Expected Outcomes/Goals Expected Outcomes/Goals 1. PO intake to meet at least 75% of nutritional needs. 2. Wt stability, skin to remain intact, labs to approach WNL.
--- NOTE | 2018-04-30 20:36 | Progress Notes ---
DATE: 04/30/2018 SUBJECTIVE: The patient was seen and evaluated. This is Dr. Tang covering for Dr. Booth. No side effects noted by the interview. Today on [id number] evaluation, the patient denies any side effects to medication. Sleeping well. With further assessing the patient, the patient becomes more irritable and easily agitated. MENTAL STATUS EXAMINATION: Disorganized and suspicious. ASSESSMENT AND PLAN: History of schizophrenia. We will continue with the current regimen of Clozaril. No EPS. No headache. No chest pain. JOB# [id number]
[2018-05-01] MEDS: Multivitamin w/ Minerals Tab PO SCH (09:24)
[2018-05-01] MEDS: Fish Oil 1,000 MG SGL PO SCH (09:24)
--- NOTE | 2018-05-01 17:28 | Discharge Summary ---
DATE OF DISCHARGE: 05/01/2018 IDENTIFYING INFORMATION: The patient is a 72-year-old male. CHIEF COMPLAINT: No answer. HISTORY OF PRESENT ILLNESS: The patient is referred from [place]. The patient was acting out, combative, agitated. He sleeps well, eats well, has to be medicated prior to sending him here and while he was at [place] he is a poor historian with long history of schizophrenia. He has prior hospitalization does not remember being hospitalized as prior suicide attempt. He was on Clozaril. MEDICAL HISTORY: Hyperlipidemia, joint disease, mild dementia. ALLERGIES: He has no known drug allergy. COURSE IN THE HOSPITAL: The patient was on Clozaril 500 mg; however, he got nauseated and vomiting when he took the dose, so went back to 100 mg and start increasing it and slowly and we went up to 175 mg at bedtime. The patient progressively got better. He was not acting out. He was sleeping well and eating well. No acting out behavior. He was continued with Calciferol, vitamin D3, fish oil, folic acid 1 mg daily, multivitamin, and simvastatin. The patient was doing well. He was stable. We felt he could go back to nursing facility if medication needs to be adjusted. I could be reached, I go there very often and the patient will be discharged to a lesser level of care. FINAL DIAGNOSIS: Schizoaffective disorder. MEDICAL DIAGNOSES: Hypercholesterolemia, hyperlipidemia. The patient will follow up with the psychiatrist and primary care physician. EXPECTED OUTCOME: Stable if the patient complies above. [facility]# [id number]
--- NOTE | 2018-05-01 19:52 | Internal Medicine Prog Note ---
Internal Medicine Subjective - Subjective Service Date: 05/01/18 Patient seen and examined:: with staff Patient is:: awake, verbal, ambulating, confused Per staff patient has:: no adverse event Internal Medicine Objective - Results Result Diagrams: 04/29/18 09:50 04/21/18 18:00 Recent Labs: Laboratory Last Values WBC 8.1 Th/cmm (4.8-10.8) 04/29/18 09:50 RBC 4.37 Mil/cmm (3.80-5.80) 04/29/18 09:50 Hgb 13.8 gm/dL (12-16) 04/29/18 09:50 Hct 41.2 % (41.0-60) 04/29/18 09:50 MCV 94.4 fl (80-99) 04/29/18 09:50 MCH 31.7 pg (27.0-31.0) H 04/29/18 09:50 MCHC Differential 33.5 pg (28.0-36.0) 04/29/18 09:50 RDW 13.1 % (11.5-20.0) 04/29/18 09:50 Plt Count 174 Th/cmm (150-400) 04/29/18 09:50 MPV 9.4 fl 04/29/18 09:50 Neutrophils % 71.5 % (40.0-80.0) 04/29/18 09:50 Lymphocytes % 16.6 % (20.0-50.0) L 04/29/18 09:50 Monocytes % 5.9 % (2.0-10.0) 04/29/18 09:50 Eosinophils % 5.8 % (0.0-5.0) H 04/29/18 09:50 Basophils % 0.2 % (0.0-2.0) 04/29/18 09:50 Sodium 142 mEq/L (136-145) 04/21/18 18:00 Potassium 3.7 mEq/L (3.5-5.1) 04/21/18 18:00 Chloride 109 mEq/L (98-107) H 04/21/18 18:00 Carbon Dioxide 25.4 mEq/L (21.0-31.0) 04/21/18 18:00 Anion Gap 11.3 (7.0-16.0) 04/21/18 18:00 BUN 22 mg/dL (7-25) 04/21/18 18:00 Creatinine 1.1 mg/dL (0.7-1.3) 04/21/18 18:00 Est GFR ( Amer) TNP 04/21/18 18:00 Est GFR (Non-Af Amer) TNP 04/21/18 18:00 BUN/Creatinine Ratio 20.0 04/21/18 18:00 Glucose 110 mg/dL (70-105) H 04/21/18 18:00 Calcium 9.4 mg/dL (8.6-10.3) 04/21/18 18:00 Phosphorus 3.1 mg/dL (2.5-5.0) 04/21/18 18:00 Magnesium 2.0 mg/dL (1.9-2.7) 04/21/18 18:00 Total Bilirubin 0.3 mg/dL (0.3-1.0) 04/21/18 18:00 AST 13 U/L (13-39) 04/21/18 18:00 ALT 14 U/L (7-52) 04/21/18 18:00 Alkaline Phosphatase 81 U/L (34-104) 04/21/18 18:00 Total Protein 6.3 gm/dL (6.0-8.3) 04/21/18 18:00 Albumin 3.6 gm/dL (4.2-5.5) L 04/21/18 18:00 Globulin 2.7 gm/dL 04/21/18 18:00 Albumin/Globulin Ratio 1.3 (1.0-1.8) 04/21/18 18:00 Triglycerides 269 mg/dL (<150) H 04/21/18 18:00 Cholesterol 154 mg/dL (<200) 04/21/18 18:00 LDL Cholesterol Direct 90 mg/dL (75-193) 04/21/18 18:00 HDL Cholesterol 46 mg/dL (23-92) 04/21/18 18:00 Urine Source CLEAN C 04/21/18 17:00 Urine Color YELLOW 04/21/18 17:00 Urine Clarity CLEAR (CLEAR) 04/21/18 17:00 Urine pH 6.0 (4.6 - 8.0) 04/21/18 17:00 Ur Specific [place] 1.015 (1.005-1.030) 04/21/18 17:00 Urine Protein NEGATIVE mg/dL (NEGATIVE) 04/21/18 17:00 Urine Glucose (UA) NEGATIVE mg/dL (NEGATIVE) 04/21/18 17:00 Urine Ketones NEGATIVE mg/dL (NEGATIVE) 04/21/18 17:00 Urine Blood NEGATIVE (NEGATIVE) 04/21/18 17:00 Urine Nitrate NEGATIVE (NEGATIVE) 04/21/18 17:00 Urine Bilirubin NEGATIVE (NEGATIVE) 04/21/18 17:00 Urine Urobilinogen 0.2 E.U./dL (0.2 - 1.0) 04/21/18 17:00 Ur Leukocyte Esterase NEGATIVE (NEGATIVE) 04/21/18 17:00 Urine RBC 0-2 /hpf (0-5) H 04/21/18 17:00 Urine WBC 2-5 /hpf (0-5) 04/21/18 17:00 Ur Epithelial Cells FEW /lpf (FEW) 04/21/18 17:00 Urine Bacteria FEW /hpf (NONE SEEN) 04/21/18 17:00 Urine Opiates Screen NEGATIVE (NEGATIVE) 04/21/18 17:00 Urine Methadone Screen NEGATIVE (NEGATIVE) 04/21/18 17:00 Ur Barbiturates Screen NEGATIVE (NEGATIVE) 04/21/18 17:00 Ur Tricyclics Screen NEGATIVE (NEGATIVE) 04/21/18 17:00 Ur Phencyclidine Scrn NEGATIVE (NEGATIVE) 04/21/18 17:00 Clozapine SEE REF. LAB REPORT 04/21/18 18:00 Amphetamines Screen NEGATIVE (NEGATIVE) 04/21/18 17:00 U Methamphetamines Scrn NEGATIVE (NEGATIVE) 04/21/18 17:00 U Benzodiazepines Scrn NEGATIVE (NEGATIVE) 04/21/18 17:00 U Cocaine Metab Screen NEGATIVE (NEGATIVE) 04/21/18 17:00 U Cannabinoids Screen NEGATIVE (NEGATIVE) 04/21/18 17:00 - Physical Exam Vitals and I&O: Vital Signs Temp 97.1 F 05/01/18 14:40 Pulse 72 05/01/18 14:40 Resp 18 05/01/18 14:40 BP 129/76 05/01/18 14:40 Pulse Ox 94 05/01/18 14:40 Intake & Output 05/01/18 05/01/18 05/02/18 06:59 18:59 06:59 Intake Total 120 1000 Balance 120 1000 Intake: Oral 120 1000 Other: # Voids 3 4 # Bowel Movements 0 1 Active Medications: Current Medications Acetaminophen (Tylenol) 325 mg PO Q4HR PRN PRN Reason: Pain (Mild) Stop: 06/20/18 21:05 Cholecalciferol (Vitamin D3) 2,000 iu PO DAILY [facility] Stop: 06/21/18 08:59 Last Admin: 05/01/18 09:24 Dose: 2,000 iu Clozapine (Clozaril) 175 mg PO HS [facility] Stop: 06/27/18 20:59 Last Admin: 04/30/18 21:09 Dose: 175 mg Docusate Sodium (Colace) 100 mg PO BID [facility] Stop: 06/21/18 08:59 Last Admin: 05/01/18 16:22 Dose: 100 mg Fish Oil ([place] 3) 1,000 mg PO DAILY [facility] Stop: 06/21/18 08:59 Last Admin: 05/01/18 09:24 Dose: 1,000 mg Folic Acid (Folate) 1 mg PO DAILY [facility] Stop: 06/21/18 08:59 Last Admin: 05/01/18 09:24 Dose: 1 mg Magnesium Hydroxide (Milk Of Magnesia) 30 ml PO HS PRN PRN Reason: Constipation Stop: 06/20/18 21:05 Psyllium Hydrophilic Mucilloid (Metamucil) 1 pkt PO DAILY [facility] Stop: 06/21/18 08:59 Last Admin: 05/01/18 09:24 Dose: 1 pkt Simvastatin (Zocor) 40 mg PO [facility]; Protocol Stop: 06/21/18 20:59 Last Admin: 04/30/18 21:11 Dose: 40 mg General: alert, demented HEENT: NC/AT, PERRLA, EOMI, anicteric sclerae, throat clear Neck: Supple, No JVD, No thyromegaly, +2 carotid pulse wo bruit, No LAD Lungs: CTAB Cardiovascular: RRR, Normal S1, Normal S2, without murmur Abdomen: soft, non-tender, non-distended Extremities: clear Neurological: no change Internal Medicine Assmt/Plan - Assessment Assessment: 1.HYPERLIPIDEMIA. 2.DJD. 3.DEMENTIA. 4.PSYCHOSIS. - Plan Plan: CONTINUE ON CURRENT MEDICATION AND DIET. Nutritional Asmnt/Malnutr-PDOC - Dietary Evaluation Malnutrition Findings (Please click <Entered> for more info): Nutritional Asmnt/Malnutrition Start: 04/26/18 15: 03 Text: Status: Complete Freq: Protocol: Document 04/26/18 15:05 BUFFYG (Rec: 04/26/18 15:14 LCGARY [email or web address]) Nutritional Asmnt/Malnutrition Patient General Information Nutritional Screening Moderate Risk Diagnosis psychosis Pertinent Medical Hx/Surgical Hx dyslipidemia, PUD/GERD, anemia , schizophrenia, dysphagia Subjective Information Pt seen sleeping at time of viist. Per EMR, PO intake 100% . Current Diet Order/ Nutrition Support [facility] soft ground Pertinent Medications vit D3, colace, omega 3, folate Pertinent Labs 04/21 Cl 109, Glucose 110, alb 3.6 Nutritional Hx/Data Height 1.75 m Height (Calculated Centimeters) 175.3 Current Weight (lbs) 73.936 kg Weight (Calculated Kilograms) 73.9 Weight (Calculated Grams) 16095.6 [place] Body Weight 160 Body Mass Index (BMI) 24.0 Weight Status Approriate GI Symptoms GI Symptoms None Last BM 04/26 Difficult in: None Skin Integrity/Comment: intact Current %PO Good (75-100%) Estimated Nutritional Goals BEE in Kcals: Using Current wt Calories/Kcals/Kg 25-30 Kcals Calculated 0252-8445 Protein: Using Current wt Protein g/k Protein Calculated 74 Fluid: ml 1850-2220ml (1ml/kcal) Nutritional Problem No current Nutrition Prob Problem N/A Malnutrition Alert Is there a minimum of two criteria No selected? Query Text:Check all the applicable criteria. A minimum of two criteria are recommended for diagnosis of either severe or non-severe malnutrition. Malnutrition Related to Morbid Obesity Malnutrition related to morbid obesity No Intervention/Recommendation Comments 1. Continue with [facility] soft chopped diet as ordered. 2. Monitor PO intake, wt, labs and skin integrity 3. F/U as low risk in 7 days Expected Outcomes/Goals Expected Outcomes/Goals 1. PO intake to meet at least 75% of nutritional needs. 2. Wt stability, skin to remain intact, labs to approach WNL.
[2018-05-02] MEDS: Multivitamin w/ Minerals Tab PO SCH (09:04)
[2018-05-02] MEDS: Fish Oil 1,000 MG SGL PO SCH (09:04)
== END 2018-05-02 16:40 | DRG 885 ==
LOC: ER 17:03 → GERO 19:10
PROVIDERS: ADMIT Psychiatry & Neurology Psychiatry; ATTEND Psychiatry & Neurology Psychiatry
DX: F25.9 Schizoaffective disorder, unspecified (principal); F03.91 Unspecified dementia, unspecified severity, with behavioral disturbance; F29 Unspecified psychosis not due to a substance or known physiological condition; E78.5 Hyperlipidemia, unspecified; M19.90 Unspecified osteoarthritis, unspecified site; Z79.899 Other long term (current) drug therapy
CPT/HCPCS: 36415-UA; 80053-TC; 80061-TC; 80307; 80342-90; 81001-TC; 83036-90; 83735-TC; 84100-TC; 85025-TC; Z7610

== ENCOUNTER 2018-10-27 17:03 | Inpatient (IN) | payer MEDICARE, BC ==
--- NOTE | 2018-10-27 17:23 | ED Physician Chart ---
ED Chief Complaint/HPI - Patient Information Date Seen:: 10/27/18 Time Seen:: 17:10 Chief Complaint:: Agitation History of Present Illness:: onset x 3 days of agitation and hostile behavior; no report of trauma, SIs, H/As , S/T, neck pain, cough, C/P, SOB, Abd. Pain, A/N/V/D/C, fever, chills, or urinary s/s Allergies:: Allergies Allergy/AdvReac Type Severity Reaction Status Date / Time No Known Allergies Allergy Verified 10/27/18 17:07 Vitals:: Vital Signs - 8 hr 10/27/18 17:14 Temp 97.3 F HR 63 RR 18 BP 104/66 O2 Sat % 97 Historian:: Patient, EMS Review:: Nurse's Note Reviewed, Old Chart Reviewed, EMS run form Reviewed ED Review of Systems - Review of Systems General/Constitutional: No fever, No chills, No weight loss, No weakness, No diaphoresis, No edema, No loss of appetite Skin: No skin lesions, No rash, No bruising Head: No headache, No light-headedness Eyes: No loss of vision, No pain, No diplopia ENT: No earache, No nasal drainage, No sore throat, No tinnitus Neck: No neck pain, No swelling, No thyromegaly, No stiffness, No mass noted Cardio Vascular: No chest pain, No palpitations, No PND, No orthopnea, No edema Pulmonary: No SOB, No cough, No sputum, No wheezing GI: No nausea, No vomiting, No diarrhea, No pain, No melena, No hematochezia, No constipation, No hematemesis G/U: No dysuria, No frequency, No hematuria, No nacturia Musculoskeletal: No bone or joint pain, No back pain, No muscle pain Endocrine: No polyuria, No polydipsia Psychiatric: Prior psych history, Depression, Anxiety, No suicidal ideation, No homicidal ideation, No auditory hallucination, No visual hallucination Hematopoietic: No bruising, No lymphadenopathy Allergic/Immuno: No urticaria, No angioedema Neurological: No syncope, No focal symptoms, No weakness, No paresthesia, No headache, No seizure, No dizziness, No confusion, No vertigo ED Past Medical History - Past Medical History Obtainable: Yes Past Medical History: HTN, Dyslipidemia Family History: HTN Social History: Non Smoker, No Alcohol, No Drug Use, Single, Care Facility Surgical History: None Psychiatricy History: Depression, Bipolar Medication: Reviewed Family Medical History - Family Member Mother History Unknown: Yes ED Physical Exam - Physical Examination General/Constitutional: Awake, Well-developed, well-nourished, Alert, No distress, GCS 15, Non-toxic appearing, Ambulatory Head: Atraumatic Eyes: Lids, conjuctiva normal, PERRL, EOMI Skin: Nl inspection, No rash, No skin lesions, No ecchymosis, Well hydrated, No lymphadenopathy ENMT: External ears, nose nl, TM canals nl, Nasal exam nl, Lips, teeth, gums nl , Oropharynx nl, Tonsils nl Neck: Nontender, Full ROM w/o pain, No JVD, No nuchal rigidity, No bruit, No mass, No stridor Respiratory: Nl effort/Exclusion, Clear to Auscultation, No Wheeze/Rhonchi/Rales Cardio Vascular: RRR, No murmur, gallop, rubs, NL S1 S2, Carotid/Femoral/Distal pulses equal bilaterally GI: No tenderness/rebounding/guarding, No organomegaly, No hernia, Normal BS's, Nondistended, No mass/bruits, No McBurney tenderness, Rectum exam nl : No CVA tenderness Extremities: No tenderness or effusion, Full ROM, normal strength in all extremities, No edema, Normal digits & nails Neuro/Psych: Alert/oriented, DTR's symmetric, Normal sensory exam, Normal motor strength, Judgement/insight normal, Mood normal, Normal gait, No focal deficits Other Neuro/Psych comments:: + Psychomotor Agitation; no SIs; Mood/Affect: Labile Misc: Normal back, No paraspinal tenderness ED Labs/Radiology/EKG Results - Lab Results Comments:: Reviewed - EKG Interpretations EKG Time:: 17:18 Rate & Rhythm: 61; NSR Comments:: non-specific st-t changes ED Septic Shock - . Is Septic Shock (SBP<90, OR Lactate>4 mmol\L) present?: No - <6hrs of presentation: Vital Signs: Vital Signs - 8 hr 10/27/18 17:14 Temp 97.3 F HR 63 RR 18 BP 104/66 O2 Sat % 97 ED Reassessment (Disposition) - Reassessment Reassessment Condition:: Improved - Diagnosis Diagnosis:: Agitation; Medical Clearance; Psychosis; Bipolar Disorder - Aftercare/Follow up Instructions Aftercare/Follow-Up Instructions:: Counseled pt regarding lab results/diagnosis & need follow up, Counseled pt & family regarding lab results/diagnosis & need follow up - Patient Disposition Discharge/Transfer:: Acute Care w/in this hosp Admitted to:: [facility] Condition at Disposition:: Stable, Improved
[2018-10-27 17:41] LABS: % EOSINOPHILS 4.9 % (0.0-5.0); % LYMPHOCYTES 19.4 % (20.0-50.0); % MONOCYTES 6.5 % (2.0-10.0); % NEUTROPHILS 69.2 % (40.0-80.0); EOSINOPHILE ABSOLUTE 0.4 Th/cmm (0.1-0.4); HEMATOCRIT 42.1 % (41.0-60); HEMOGLOBIN 14.7 gm/dL (12-16); LYMPHOCYTE ABSOLUTE 1.6 Th/cmm (1.5-3.0); MEAN CELL VOLUME 95.6 fl (80-99); MEAN CORPUSCULAR HEMOGLOBIN 33.4 pg (27.0-31.0); MEAN CORPUSCULAR HGB CONC 34.9 pg (28.0-36.0); MONOCYTE ABSOLUTE 0.5 Th/cmm (0.3-1.0); NEUTROPHILE ABSOLUTE 5.5 Th/cmm (1.8-8.0); PLATELET COUNT 167 Th/cmm (150-400); RED CELL DISTRIBUTION WIDTH 14.3 % (11.5-20.0)
[2018-10-27 17:54] LABS: URINE SOURCE CLEAN C
[2018-10-27 18:03] LABS: ALB/GLOB RATIO 1.2 (1.0-1.8); ALBUMIN 3.5 gm/dL (4.2-5.5); ALKALINE PHOSPHATASE 72 U/L (34-104); BILIRUBIN,TOTAL 0.3 mg/dL (0.3-1.0); BUN - UREA NITROGEN 20 mg/dL (7-25); CALCIUM SERUM 9.2 mg/dL (8.6-10.3); CARBON DIOXIDE 26.8 mEq/L (21.0-31.0); CHLORIDE 109 mEq/L (98-107); CHOLESTEROL 153 mg/dL (<200); GLUCOSE 90 mg/dL (70-105); HDL -HIGH DENSITY LIPOPROTEIN 43 mg/dL (23-92); POTASSIUM SERUM 3.8 mEq/L (3.5-5.1); SGOT 12 U/L (13-39); SGPT/ALT 12 U/L (7-52); SODIUM SERUM 144 mEq/L (136-145); TOTAL PROTEIN,SERUM 6.4 gm/dL (6.0-8.3); TRIGLYCERIDES 252 mg/dL (<150)
[2018-10-27 18:19] LABS: AMPHETAMINE URINE NEGATIVE (NEGATIVE); BARBITURATES URINE NEGATIVE (NEGATIVE); BENZODIAZEPINES QUAL URINE NEGATIVE (NEGATIVE); CANNABINOID THC NEGATIVE (NEGATIVE); COCAINE METABOLITE QUAL URINE NEGATIVE (NEGATIVE); METHADONE URINE NEGATIVE (NEGATIVE); METHAMPHETAMINES QUAL URINE NEGATIVE (NEGATIVE); OPIATES (MORPHINE) QUAL. URINE NEGATIVE (NEGATIVE); PHENCYCLIDINE (PCP) URINE NEGATIVE (NEGATIVE); TRICYCLICS (TCA) QUAL. URINE NEGATIVE (NEGATIVE)
[2018-10-27 18:27] LABS: URINE BILIRUBIN NEGATIVE (NEGATIVE); URINE BLOOD TRACE (NEGATIVE); URINE GLUCOSE (UA) NEGATIVE (NEGATIVE); URINE KETONE NEGATIVE (NEGATIVE); URINE LEUKOCYTE ESTERASE NEGATIVE (NEGATIVE); URINE MICROSCOPIC INDICATED? YES; URINE NITRATE NEGATIVE (NEGATIVE); URINE PH 5.5 (4.6 - 8.0); URINE PROTEIN NEGATIVE (NEGATIVE); URINE UROBILINOGEN 0.2 E.U./dL (0.2 - 1.0)
[2018-10-27 18:31] LABS: URINE CLARITY CLEAR (CLEAR); URINE COLOR YELLOW
[2018-10-27 18:32] LABS: URINE BACTERIA FEW /hpf (NONE SEEN); URINE EPITHELIAL CELLS NONE SEEN /lpf (FEW); URINE WBC 0-2 /hpf (0-5)
[2018-10-27 18:47] LABS: VALPROIC ACID < 10.0 ug/mL (50.0-100.0)
--- NOTE | 2018-10-27 20:22 | History & Physical ---
ADMIT DATE: HISTORY OF PRESENT ILLNESS: The patient is 73-year-old male with long history of hyperlipidemia, psychosis, [place] [facility]. Booth's service for evaluation and treatment. The patient denies any chest pain, shortness of breath, nausea, vomiting, fever or chills. PAST MEDICAL HISTORY: Significant for hyperlipidemia, degenerative joint disease, psychosis. PAST SURGICAL HISTORY: No recent surgery. ALLERGIES: None. MEDICATIONS: Follow admission reconciliation. SOCIAL HISTORY: No smoking, alcohol or drugs. FAMILY HISTORY: Noncontributory. REVIEW OF SYSTEMS: RENAL SYSTEM: No history of chronic renal disorder. CARDIOVASCULAR SYSTEM: No coronary artery disease. ENDOCRINE SYSTEM: No diabetes or thyroid problem. GASTROINTESTINAL SYSTEM: No upper or lower gastrointestinal bleed. NEUROLOGICAL SYSTEM: Seizure disorder. SKELETOMUSCULAR SYSTEM: No muscular dystrophy. HEMATOLOGIC SYSTEM: No bleeding tendencies. RESPIRATORY SYSTEM: No asthma. GENITOURINARY SYSTEM: No dysuria or hematuria PHYSICAL EXAMINATION: GENERAL: He is awake, alert, confused. VITAL SIGNS: Temperature 98.2, heart rate 60, blood pressure 128/75. HEENT: Normocephalic. Pupils reactive to light and accommodation. Sclerae clear. NECK: Supple. Negative for lymphadenopathy, JVD or bruit. CHEST: Entry of air bilaterally normal. No rhonchi or wheezing. HEART: S1, S2 normal. No murmur or gallop rhythm. ABDOMEN: Soft, bowel sounds positive. EXTREMITIES: No edema. NEUROLOGIC: Awake, alert, not fully oriented. No focal motor deficits. LABORATORY DATA: White blood cell 8, hemoglobin 14.7, hematocrit 42.1, platelets 167. Sodium 144, potassium 3.8, BUN is 20, creatinine 2.0, triglycerides 252. ASSESSMENT: 1. Hyperlipidemia. 2. Degenerative joint disease. 3. Psychosis. PLAN: The patient admitted to the hospital under Dr. Booth's service. Medical problem addressed during hospitalization is psychosis. Medical problem addressed at discharge is hyperlipidemia. The patient is medically stable for activity. The patient is a full code. Thank you, Dr. Booth for asking us to see your patient. JOB# [id number]
[2018-10-27] MEDS ORDERED: Maalox 30 mL Cup PO PRN (20:35)
[2018-10-27] MEDS ORDERED: Magnesium Hydroxide (MOM) 30 mL UDC PO PRN (20:35)
[2018-10-27] MEDS ORDERED: Atorvastatin Calcium 10 MG TAB PO SCH (21:00)
[2018-10-27 21:06] VITALS: BP 131/80
[2018-10-27] MEDS: Atorvastatin Calcium 10 MG TAB PO SCH (23:40)
[2018-10-28 06:04] LABS: A1C 5.5 % (4.8-5.6)
--- NOTE | 2018-10-28 15:40 | General Progress Note ---
Subjective - Review of Systems Service Date: 10/28/18 Subjective: resting comfortably no distress had a fall today with no injury Objective - Results Result Diagrams: 10/27/18 17:30 10/27/18 17:30 Recent Labs: Laboratory Last Values WBC 8.0 Th/cmm (4.8-10.8) 10/27/18 17:30 RBC 4.40 Mil/cmm (3.80-5.80) 10/27/18 17:30 Hgb 14.7 gm/dL (12-16) 10/27/18 17:30 Hct 42.1 % (41.0-60) 10/27/18 17:30 MCV 95.6 fl (80-99) 10/27/18 17:30 MCH 33.4 pg (27.0-31.0) H 10/27/18 17:30 MCHC Differential 34.9 pg (28.0-36.0) 10/27/18 17:30 RDW 14.3 % (11.5-20.0) 10/27/18 17:30 Plt Count 167 Th/cmm (150-400) 10/27/18 17:30 MPV 9.1 fl 10/27/18 17:30 Neutrophils % 69.2 % (40.0-80.0) 10/27/18 17:30 Lymphocytes % 19.4 % (20.0-50.0) L 10/27/18 17:30 Monocytes % 6.5 % (2.0-10.0) 10/27/18 17:30 Eosinophils % 4.9 % (0.0-5.0) 10/27/18 17:30 Basophils % 0.0 % (0.0-2.0) 10/27/18 17:30 Sodium 144 mEq/L (136-145) 10/27/18 17:30 Potassium 3.8 mEq/L (3.5-5.1) 10/27/18 17:30 Chloride 109 mEq/L (98-107) H 10/27/18 17:30 Carbon Dioxide 26.8 mEq/L (21.0-31.0) 10/27/18 17:30 Anion Gap 12.0 (7.0-16.0) 10/27/18 17:30 BUN 20 mg/dL (7-25) 10/27/18 17:30 Creatinine 1.0 mg/dL (0.7-1.3) 10/27/18 17:30 Est GFR ( Amer) TNP 10/27/18 17:30 Est GFR (Non-Af Amer) TNP 10/27/18 17:30 BUN/Creatinine Ratio 20.0 10/27/18 17:30 Glucose 90 mg/dL (70-105) 10/27/18 17:30 Calcium 9.2 mg/dL (8.6-10.3) 10/27/18 17:30 Total Bilirubin 0.3 mg/dL (0.3-1.0) 10/27/18 17:30 AST 12 U/L (13-39) L 10/27/18 17:30 ALT 12 U/L (7-52) 10/27/18 17:30 Alkaline Phosphatase 72 U/L (34-104) 10/27/18 17:30 Troponin I 0.01 ng/mL (0.01-0.05) 10/27/18 17:30 Total Protein 6.4 gm/dL (6.0-8.3) 10/27/18 17:30 Albumin 3.5 gm/dL (4.2-5.5) L 10/27/18 17:30 Globulin 2.9 gm/dL 10/27/18 17:30 Albumin/Globulin Ratio 1.2 (1.0-1.8) 10/27/18 17:30 Triglycerides 252 mg/dL (<150) H 10/27/18 17:30 Cholesterol 153 mg/dL (<200) 10/27/18 17:30 LDL Cholesterol Direct 78 mg/dL (75-193) 10/27/18 17:30 HDL Cholesterol 43 mg/dL (23-92) 10/27/18 17:30 TSH 1.88 uIU/ml (0.34-5.60) 10/27/18 17:30 Urine Source CLEAN C 10/27/18 17:30 Urine Color YELLOW 10/27/18 17:30 Urine Clarity CLEAR (CLEAR) 10/27/18 17:30 Urine pH 5.5 (4.6 - 8.0) 10/27/18 17:30 Ur Specific [place] 1.015 (1.005-1.030) 10/27/18 17:30 Urine Protein NEGATIVE mg/dL (NEGATIVE) 10/27/18 17:30 Urine Glucose (UA) NEGATIVE mg/dL (NEGATIVE) 10/27/18 17:30 Urine Ketones NEGATIVE mg/dL (NEGATIVE) 10/27/18 17:30 Urine Blood TRACE (NEGATIVE) 10/27/18 17:30 Urine Nitrate NEGATIVE (NEGATIVE) 10/27/18 17:30 Urine Bilirubin NEGATIVE (NEGATIVE) 10/27/18 17:30 Urine Urobilinogen 0.2 E.U./dL (0.2 - 1.0) 10/27/18 17:30 Ur Leukocyte Esterase NEGATIVE (NEGATIVE) 10/27/18 17:30 Urine RBC 2-5 /hpf (0-5) H 10/27/18 17:30 Urine WBC 0-2 /hpf (0-5) 10/27/18 17:30 Ur Epithelial Cells NONE SEEN /lpf (FEW) 10/27/18 17:30 Urine Bacteria FEW /hpf (NONE SEEN) 10/27/18 17:30 Salicylates < 25.0 mg/L (30.0-100.0) L 10/27/18 17:30 Urine Opiates Screen NEGATIVE (NEGATIVE) 10/27/18 17:30 Urine Methadone Screen NEGATIVE (NEGATIVE) 10/27/18 17:30 Acetaminophen 10.0 ug/mL (10.0-30.0) 10/27/18 17:30 Ur Barbiturates Screen NEGATIVE (NEGATIVE) 10/27/18 17:30 Valproic Acid < 10.0 ug/mL (50.0-100.0) L 10/27/18 17:30 Ur Tricyclics Screen NEGATIVE (NEGATIVE) 10/27/18 17:30 Ur Phencyclidine Scrn NEGATIVE (NEGATIVE) 10/27/18 17:30 Amphetamines Screen NEGATIVE (NEGATIVE) 10/27/18 17:30 U Methamphetamines Scrn NEGATIVE (NEGATIVE) 10/27/18 17:30 U Benzodiazepines Scrn NEGATIVE (NEGATIVE) 10/27/18 17:30 U Cocaine Metab Screen NEGATIVE (NEGATIVE) 10/27/18 17:30 U Cannabinoids Screen NEGATIVE (NEGATIVE) 10/27/18 17:30 Ethyl Alcohol < 10 mg/dL (0-10) 10/27/18 17:30 - Physical Exam Vitals and I&O: Vital Signs Temp 97.7 F 10/28/18 14:00 Pulse 61 10/28/18 14:00 Resp 20 10/28/18 14:00 BP 89/53 10/28/18 14:00 Pulse Ox 96 10/28/18 14:00 Intake & Output 10/27/18 10/28/18 10/28/18 18:59 06:59 18:59 Intake Total 480 Balance 480 Weight (lbs) 74.843 kg Intake: Oral 480 Other: # Voids 2 Stool Characteristics Hard Weight Source Estimated Active Medications: Current Medications Acetaminophen (Tylenol) 650 mg PO Q4HR PRN PRN Reason: Pain (Mild) Stop: 12/26/18 19:35 Al Hydrox/Mg Hydrox/Simethicone (Maalox) 30 ml PO Q4HR PRN PRN Reason: GI DISTRESS Stop: 12/26/18 20:34 Atorvastatin Calcium (Lipitor) 20 mg PO HS JL; Protocol Stop: 12/26/18 20:59 Last Admin: 10/27/18 23:40 Dose: 20 mg Cholecalciferol (Vitamin D3) 2,000 iu PO DAILY JL Stop: 12/27/18 08:59 Last Admin: 10/28/18 09:39 Dose: 2,000 iu Clozapine (Clozaril) 100 mg PO DAILY JL; Protocol Stop: 12/27/18 15:44 Clozapine (Clozaril) 40 mg PO HS JL; Protocol Stop: 12/27/18 20:59 Docusate Sodium (Colace) 100 mg PO BID JL Stop: 12/27/18 08:59 Last Admin: 10/28/18 09:39 Dose: 100 mg Lorazepam (Ativan) 0.5 mg PO Q4H PRN; Protocol PRN Reason: Psychois/Agitation/Anxiety Stop: 12/26/18 22:39 Last Admin: 10/28/18 09:40 Dose: 0.5 mg Magnesium Hydroxide (Milk Of Magnesia) 30 ml PO HS PRN PRN Reason: Constipation Zolpidem Tartrate (Ambien) 5 mg PO HS PRN PRN Reason: Insomnia Stop: 12/26/18 22:41 General: No acute distress HEENT: Atraumatic, PERRLA Neck: Supple, JVD Cardiovascular: Regular rate, Normal S1, Normal S2 Lungs: Clear to auscultation Abdomen: Bowel sounds, Soft Assessment/Plan - Assessment Assessment: psychosis DJD hyperlipidemia - Plan Plan: continue current treatment
[2018-10-28] MEDS: Atorvastatin Calcium 10 MG TAB PO SCH (21:08)
--- NOTE | 2018-10-29 13:14 | General Progress Note ---
Subjective - Review of Systems Subjective: resting comfortably no distress Objective - Results Result Diagrams: 10/27/18 17:30 10/27/18 17:30 Recent Labs: Laboratory Last Values WBC 8.0 Th/cmm (4.8-10.8) 10/27/18 17:30 RBC 4.40 Mil/cmm (3.80-5.80) 10/27/18 17:30 Hgb 14.7 gm/dL (12-16) 10/27/18 17:30 Hct 42.1 % (41.0-60) 10/27/18 17:30 MCV 95.6 fl (80-99) 10/27/18 17:30 MCH 33.4 pg (27.0-31.0) H 10/27/18 17:30 MCHC Differential 34.9 pg (28.0-36.0) 10/27/18 17:30 RDW 14.3 % (11.5-20.0) 10/27/18 17:30 Plt Count 167 Th/cmm (150-400) 10/27/18 17:30 MPV 9.1 fl 10/27/18 17:30 Neutrophils % 69.2 % (40.0-80.0) 10/27/18 17:30 Lymphocytes % 19.4 % (20.0-50.0) L 10/27/18 17:30 Monocytes % 6.5 % (2.0-10.0) 10/27/18 17:30 Eosinophils % 4.9 % (0.0-5.0) 10/27/18 17:30 Basophils % 0.0 % (0.0-2.0) 10/27/18 17:30 Sodium 144 mEq/L (136-145) 10/27/18 17:30 Potassium 3.8 mEq/L (3.5-5.1) 10/27/18 17:30 Chloride 109 mEq/L (98-107) H 10/27/18 17:30 Carbon Dioxide 26.8 mEq/L (21.0-31.0) 10/27/18 17:30 Anion Gap 12.0 (7.0-16.0) 10/27/18 17:30 BUN 20 mg/dL (7-25) 10/27/18 17:30 Creatinine 1.0 mg/dL (0.7-1.3) 10/27/18 17:30 Est GFR ( Amer) TNP 10/27/18 17:30 Est GFR (Non-Af Amer) TNP 10/27/18 17:30 BUN/Creatinine Ratio 20.0 10/27/18 17:30 Glucose 90 mg/dL (70-105) 10/27/18 17:30 Calcium 9.2 mg/dL (8.6-10.3) 10/27/18 17:30 Total Bilirubin 0.3 mg/dL (0.3-1.0) 10/27/18 17:30 AST 12 U/L (13-39) L 10/27/18 17:30 ALT 12 U/L (7-52) 10/27/18 17:30 Alkaline Phosphatase 72 U/L (34-104) 10/27/18 17:30 Troponin I 0.01 ng/mL (0.01-0.05) 10/27/18 17:30 Total Protein 6.4 gm/dL (6.0-8.3) 10/27/18 17:30 Albumin 3.5 gm/dL (4.2-5.5) L 10/27/18 17:30 Globulin 2.9 gm/dL 10/27/18 17:30 Albumin/Globulin Ratio 1.2 (1.0-1.8) 10/27/18 17:30 Triglycerides 252 mg/dL (<150) H 10/27/18 17:30 Cholesterol 153 mg/dL (<200) 10/27/18 17:30 LDL Cholesterol Direct 78 mg/dL (75-193) 10/27/18 17:30 HDL Cholesterol 43 mg/dL (23-92) 10/27/18 17:30 TSH 1.88 uIU/ml (0.34-5.60) 10/27/18 17:30 Urine Source CLEAN C 10/27/18 17:30 Urine Color YELLOW 10/27/18 17:30 Urine Clarity CLEAR (CLEAR) 10/27/18 17:30 Urine pH 5.5 (4.6 - 8.0) 10/27/18 17:30 Ur Specific [place] 1.015 (1.005-1.030) 10/27/18 17:30 Urine Protein NEGATIVE mg/dL (NEGATIVE) 10/27/18 17:30 Urine Glucose (UA) NEGATIVE mg/dL (NEGATIVE) 10/27/18 17:30 Urine Ketones NEGATIVE mg/dL (NEGATIVE) 10/27/18 17:30 Urine Blood TRACE (NEGATIVE) 10/27/18 17:30 Urine Nitrate NEGATIVE (NEGATIVE) 10/27/18 17:30 Urine Bilirubin NEGATIVE (NEGATIVE) 10/27/18 17:30 Urine Urobilinogen 0.2 E.U./dL (0.2 - 1.0) 10/27/18 17:30 Ur Leukocyte Esterase NEGATIVE (NEGATIVE) 10/27/18 17:30 Urine RBC 2-5 /hpf (0-5) H 10/27/18 17:30 Urine WBC 0-2 /hpf (0-5) 10/27/18 17:30 Ur Epithelial Cells NONE SEEN /lpf (FEW) 10/27/18 17:30 Urine Bacteria FEW /hpf (NONE SEEN) 10/27/18 17:30 Salicylates < 25.0 mg/L (30.0-100.0) L 10/27/18 17:30 Urine Opiates Screen NEGATIVE (NEGATIVE) 10/27/18 17:30 Urine Methadone Screen NEGATIVE (NEGATIVE) 10/27/18 17:30 Acetaminophen 10.0 ug/mL (10.0-30.0) 10/27/18 17:30 Ur Barbiturates Screen NEGATIVE (NEGATIVE) 10/27/18 17:30 Valproic Acid < 10.0 ug/mL (50.0-100.0) L 10/27/18 17:30 Ur Tricyclics Screen NEGATIVE (NEGATIVE) 10/27/18 17:30 Ur Phencyclidine Scrn NEGATIVE (NEGATIVE) 10/27/18 17:30 Amphetamines Screen NEGATIVE (NEGATIVE) 10/27/18 17:30 U Methamphetamines Scrn NEGATIVE (NEGATIVE) 10/27/18 17:30 U Benzodiazepines Scrn NEGATIVE (NEGATIVE) 10/27/18 17:30 U Cocaine Metab Screen NEGATIVE (NEGATIVE) 10/27/18 17:30 U Cannabinoids Screen NEGATIVE (NEGATIVE) 10/27/18 17:30 Ethyl Alcohol < 10 mg/dL (0-10) 10/27/18 17:30 - Physical Exam Vitals and I&O: Vital Signs Temp 98.5 F 10/28/18 20:10 Pulse 69 10/28/18 20:10 Resp 20 10/28/18 20:10 BP 106/66 10/28/18 20:10 Pulse Ox 95 10/28/18 20:10 Intake & Output 10/28/18 10/29/18 10/29/18 18:59 06:59 18:59 Intake Total 760 240 Balance 760 240 Intake: Oral 640 240 Other 120 Other: # Voids 3 2 # Bowel Movements 1 1 Active Medications: Current Medications Acetaminophen (Tylenol) 650 mg PO Q4HR PRN PRN Reason: Pain (Mild) Stop: 12/26/18 19:35 Al Hydrox/Mg Hydrox/Simethicone (Maalox) 30 ml PO Q4HR PRN PRN Reason: GI DISTRESS Stop: 12/26/18 20:34 Atorvastatin Calcium (Lipitor) 20 mg PO HS JL; Protocol Stop: 12/26/18 20:59 Last Admin: 10/28/18 21:08 Dose: 20 mg Cholecalciferol (Vitamin D3) 2,000 iu PO DAILY JL Stop: 12/27/18 08:59 Last Admin: 10/29/18 08:32 Dose: 2,000 iu Clozapine (Clozaril) 100 mg PO DAILY JL; Protocol Stop: 12/27/18 15:44 Last Admin: 10/29/18 08:33 Dose: 100 mg Clozapine (Clozaril) 400 mg PO HS JL; Protocol Stop: 12/27/18 20:59 Last Admin: 10/28/18 21:09 Dose: 400 mg Docusate Sodium (Colace) 100 mg PO BID JL Stop: 12/27/18 08:59 Last Admin: 10/29/18 08:33 Dose: 100 mg Lorazepam (Ativan) 0.5 mg PO Q4H PRN; Protocol PRN Reason: Psychois/Agitation/Anxiety Stop: 12/26/18 22:39 Last Admin: 10/29/18 00:37 Dose: 0.5 mg Magnesium Hydroxide (Milk Of Magnesia) 30 ml PO HS PRN PRN Reason: Constipation Zolpidem Tartrate (Ambien) 5 mg PO HS PRN PRN Reason: Insomnia Stop: 12/26/18 22:41 Last Admin: 10/28/18 21:09 Dose: 5 mg General: No acute distress HEENT: Atraumatic, PERRLA Neck: Supple, JVD Cardiovascular: Regular rate, Normal S1, Normal S2 Lungs: Clear to auscultation Abdomen: Bowel sounds, Soft Assessment/Plan - Assessment Assessment: psychosis DJD hyperlipidemia - Plan Plan: continue current treatment
--- NOTE | 2018-10-29 15:28 | Psychiatric Evaluation ---
DATE OF SERVICE: 10/28/2018 The patient was seen and evaluated. The patient's chart reviewed. Covering for Dr. Booth. CHIEF COMPLAINT: "I used LSD." HISTORY OF PRESENT ILLNESS: A 73-year-old male with a long history of multiple psychiatric hospitalizations with a history of chronic schizophrenia, brought in here for severe agitation and psychotic behavior. Today on [id number] evaluation, the patient mostly perseverates that he was using LSD and beyond that information, he is extremely poor historian. He reports that the LSD is good and he only needs LSD. PAST MEDICAL HISTORY: Hyperlipidemia, DJD. PAST PSYCHIATRIC HISTORY: Schizophrenia. ALLERGIES TO MEDICATIONS: NKDA. SOCIAL HISTORY: Currently, lives in a retirement. No smoking, no alcohol, no drugs. FAMILY HISTORY: Noncontributory. LEGAL HISTORY: Denied. MEDICATION: Reconciliation reviewed. I spoke with Matthew from the nursing facility and confirmed that the patient had been consistent with Clozaril and no missed dosages. He is currently on clozapine 100 mg in the morning, 400 mg at nighttime, Depakote. MENTAL STATUS EXAMINATION: Avoiding, irritable, only oriented to place, psychotic, agitated, aggressive to others. Poor insight, judgment and poor impulse control. WEAKNESSES: Poor coping skills, thoughts. STRENGTHS: Good support system. ASSESSMENT AND PLAN: Chronic schizophrenia. After confirming that the patient had been compliant with clozapine, we will initiate clozapine 100 mg in the morning, 400 mg at nighttime. We will obtain more collateral baseline information. PRIMARY DIAGNOSIS: Schizophrenia. SECONDARY DIAGNOSIS: None. MEDICAL DIAGNOSIS: As noted above. PLAN: 1. Admit the patient. 2. Reinitiate the medications per reconciliation of the retirement. 3. Obtain more collateral information. 4. Initiate both individual and group therapy. [facility]# [id number]
[2018-10-29] MEDS: Atorvastatin Calcium 10 MG TAB PO SCH (21:03)
--- NOTE | 2018-10-30 04:27 | Progress Notes ---
DATE: 10/29/[address] Booth. SUBJECTIVE: Today on [id number] evaluation, the patient continues to perseverate that he has been using LSD, which is inconsistent since the patient has been living in a [facility]. MENTAL STATUS EXAMINATION: Delusions. ASSESSMENT AND PLAN: Schizophrenia, currently on Clozaril. ____ he is on Clozaril, which has been confirmed, which he had been taking daily prior to admission at 500 mg a day. JOB# [id number]
--- NOTE | 2018-10-30 20:44 | Internal Medicine Prog Note ---
Internal Medicine Subjective - Subjective Service Date: 10/30/18 Patient seen and examined:: with staff (HE FEELS WELL) Patient is:: awake, verbal, ambulating, talking Per staff patient has:: no adverse event Internal Medicine Objective - Results Result Diagrams: 10/27/18 17:30 10/27/18 17:30 Recent Labs: Laboratory Last Values WBC 8.0 Th/cmm (4.8-10.8) 10/27/18 17:30 RBC 4.40 Mil/cmm (3.80-5.80) 10/27/18 17:30 Hgb 14.7 gm/dL (12-16) 10/27/18 17:30 Hct 42.1 % (41.0-60) 10/27/18 17:30 MCV 95.6 fl (80-99) 10/27/18 17:30 MCH 33.4 pg (27.0-31.0) H 10/27/18 17:30 MCHC Differential 34.9 pg (28.0-36.0) 10/27/18 17:30 RDW 14.3 % (11.5-20.0) 10/27/18 17:30 Plt Count 167 Th/cmm (150-400) 10/27/18 17:30 MPV 9.1 fl 10/27/18 17:30 Neutrophils % 69.2 % (40.0-80.0) 10/27/18 17:30 Lymphocytes % 19.4 % (20.0-50.0) L 10/27/18 17:30 Monocytes % 6.5 % (2.0-10.0) 10/27/18 17:30 Eosinophils % 4.9 % (0.0-5.0) 10/27/18 17:30 Basophils % 0.0 % (0.0-2.0) 10/27/18 17:30 Sodium 144 mEq/L (136-145) 10/27/18 17:30 Potassium 3.8 mEq/L (3.5-5.1) 10/27/18 17:30 Chloride 109 mEq/L (98-107) H 10/27/18 17:30 Carbon Dioxide 26.8 mEq/L (21.0-31.0) 10/27/18 17:30 Anion Gap 12.0 (7.0-16.0) 10/27/18 17:30 BUN 20 mg/dL (7-25) 10/27/18 17:30 Creatinine 1.0 mg/dL (0.7-1.3) 10/27/18 17:30 Est GFR ( Amer) TNP 10/27/18 17:30 Est GFR (Non-Af Amer) TNP 10/27/18 17:30 BUN/Creatinine Ratio 20.0 10/27/18 17:30 Glucose 90 mg/dL (70-105) 10/27/18 17:30 Calcium 9.2 mg/dL (8.6-10.3) 10/27/18 17:30 Total Bilirubin 0.3 mg/dL (0.3-1.0) 10/27/18 17:30 AST 12 U/L (13-39) L 10/27/18 17:30 ALT 12 U/L (7-52) 10/27/18 17:30 Alkaline Phosphatase 72 U/L (34-104) 10/27/18 17:30 Troponin I 0.01 ng/mL (0.01-0.05) 10/27/18 17:30 Total Protein 6.4 gm/dL (6.0-8.3) 10/27/18 17:30 Albumin 3.5 gm/dL (4.2-5.5) L 10/27/18 17:30 Globulin 2.9 gm/dL 10/27/18 17:30 Albumin/Globulin Ratio 1.2 (1.0-1.8) 10/27/18 17:30 Triglycerides 252 mg/dL (<150) H 10/27/18 17:30 Cholesterol 153 mg/dL (<200) 10/27/18 17:30 LDL Cholesterol Direct 78 mg/dL (75-193) 10/27/18 17:30 HDL Cholesterol 43 mg/dL (23-92) 10/27/18 17:30 TSH 1.88 uIU/ml (0.34-5.60) 10/27/18 17:30 Urine Source CLEAN C 10/27/18 17:30 Urine Color YELLOW 10/27/18 17:30 Urine Clarity CLEAR (CLEAR) 10/27/18 17:30 Urine pH 5.5 (4.6 - 8.0) 10/27/18 17:30 Ur Specific [place] 1.015 (1.005-1.030) 10/27/18 17:30 Urine Protein NEGATIVE mg/dL (NEGATIVE) 10/27/18 17:30 Urine Glucose (UA) NEGATIVE mg/dL (NEGATIVE) 10/27/18 17:30 Urine Ketones NEGATIVE mg/dL (NEGATIVE) 10/27/18 17:30 Urine Blood TRACE (NEGATIVE) 10/27/18 17:30 Urine Nitrate NEGATIVE (NEGATIVE) 10/27/18 17:30 Urine Bilirubin NEGATIVE (NEGATIVE) 10/27/18 17:30 Urine Urobilinogen 0.2 E.U./dL (0.2 - 1.0) 10/27/18 17:30 Ur Leukocyte Esterase NEGATIVE (NEGATIVE) 10/27/18 17:30 Urine RBC 2-5 /hpf (0-5) H 10/27/18 17:30 Urine WBC 0-2 /hpf (0-5) 10/27/18 17:30 Ur Epithelial Cells NONE SEEN /lpf (FEW) 10/27/18 17:30 Urine Bacteria FEW /hpf (NONE SEEN) 10/27/18 17:30 Salicylates < 25.0 mg/L (30.0-100.0) L 10/27/18 17:30 Urine Opiates Screen NEGATIVE (NEGATIVE) 10/27/18 17:30 Urine Methadone Screen NEGATIVE (NEGATIVE) 10/27/18 17:30 Acetaminophen 10.0 ug/mL (10.0-30.0) 10/27/18 17:30 Ur Barbiturates Screen NEGATIVE (NEGATIVE) 10/27/18 17:30 Valproic Acid < 10.0 ug/mL (50.0-100.0) L 10/27/18 17:30 Ur Tricyclics Screen NEGATIVE (NEGATIVE) 10/27/18 17:30 Ur Phencyclidine Scrn NEGATIVE (NEGATIVE) 10/27/18 17:30 Amphetamines Screen NEGATIVE (NEGATIVE) 10/27/18 17:30 U Methamphetamines Scrn NEGATIVE (NEGATIVE) 10/27/18 17:30 U Benzodiazepines Scrn NEGATIVE (NEGATIVE) 10/27/18 17:30 U Cocaine Metab Screen NEGATIVE (NEGATIVE) 10/27/18 17:30 U Cannabinoids Screen NEGATIVE (NEGATIVE) 10/27/18 17:30 Ethyl Alcohol < 10 mg/dL (0-10) 10/27/18 17:30 RPR NONREACTIVE (NONREACTIVE) 10/27/18 17:30 - Physical Exam Vitals and I&O: Vital Signs Temp 97.8 F 10/30/18 19:45 Pulse 69 10/30/18 19:45 Resp 20 10/30/18 19:45 BP 116/76 10/30/18 19:45 Pulse Ox 96 10/30/18 19:45 Intake & Output 10/30/18 10/30/18 10/31/18 06:59 18:59 06:59 Intake Total 120 Balance 120 Intake: Oral 120 Other: # Voids 3 # Bowel Movements 0 Stool Characteristics Soft Brown Active Medications: Current Medications Acetaminophen (Tylenol) 650 mg PO Q4HR PRN PRN Reason: Pain (Mild) Stop: 12/26/18 19:35 Al Hydrox/Mg Hydrox/Simethicone (Maalox) 30 ml PO Q4HR PRN PRN Reason: GI DISTRESS Stop: 12/26/18 20:34 Atorvastatin Calcium (Lipitor) 20 mg PO HS JL; Protocol Stop: 12/26/18 20:59 Last Admin: 10/29/18 21:03 Dose: 20 mg Cholecalciferol (Vitamin D3) 2,000 iu PO DAILY JL Stop: 12/27/18 08:59 Last Admin: 10/30/18 08:58 Dose: 2,000 iu Clozapine (Clozaril) 100 mg PO DAILY JL; Protocol Stop: 12/27/18 15:44 Last Admin: 10/30/18 08:59 Dose: 100 mg Clozapine (Clozaril) 400 mg PO HS JL; Protocol Stop: 12/27/18 20:59 Last Admin: 10/29/18 21:04 Dose: 400 mg Docusate Sodium (Colace) 100 mg PO BID JL Stop: 12/27/18 08:59 Last Admin: 10/30/18 17:48 Dose: 100 mg Lorazepam (Ativan) 0.5 mg PO Q4H PRN; Protocol PRN Reason: Psychois/Agitation/Anxiety Stop: 12/26/18 22:39 Last Admin: 10/29/18 23:24 Dose: 0.5 mg Magnesium Hydroxide (Milk Of Magnesia) 30 ml PO HS PRN PRN Reason: Constipation Zolpidem Tartrate (Ambien) 5 mg PO HS PRN PRN Reason: Insomnia Stop: 12/26/18 22:41 Last Admin: 10/29/18 21:04 Dose: 5 mg General: demented HEENT: NC/AT, PERRLA, EOMI, anicteric sclerae, throat clear Neck: Supple, No JVD, No thyromegaly, +2 carotid pulse wo bruit, No LAD Lungs: CTAB Cardiovascular: RRR, Normal S1, Normal S2, without murmur Abdomen: soft, non-tender, non-distended Extremities: clear Neurological: no change Internal Medicine Assmt/Plan - Assessment Assessment: 1.HYPERLIPIDEMIA. 2.DJD. 3.PSYCHOSIS - Plan Plan: CONTINUE ON CURRENT MEDICATION AND DIET.
[2018-10-30] MEDS: Atorvastatin Calcium 10 MG TAB PO SCH (20:51)
--- NOTE | 2018-10-31 | Progress Notes ---
DATE: 10/30/2018 Case was discussed with staff of the patient, reviewed records. This is a 73-year-old male who was referred by me, I saw him on 10/26/2018. Apparently, the patient has been acting out, approaching other patients. However, the staff was unable to verify it because this patient is a poor historian, denying that he did anything wrong, but ____ female patient complained about him. The patient apparently when he came, he was telling the staff that he was using LSD, and that he needs LSD. He is demented, confused with a history of schizophrenia, inappropriate behavior. The patient has been on Clozaril for a long period of time. Apparently, it was decreased, so I tried to increase the dose prior to admission here. He is on 400 mg at bedtime. Currently with no side effects, no sedation, no nausea, no extrapyramidal symptoms. As far as his lab work, the patient's CBC with high MCH, high lymphocyte, neutrophil is within normal range. His chemistry panel with high chloride and low AST, low albumin, the rest within normal range. Lipid panel with high triglyceride, urinalysis with urine red cells. Toxicology screen is negative. RPR nonreactive. We will continue to work with the patient in group therapy, milieu therapy, and adjust the medications as needed. JOB# [id number]
--- NOTE | 2018-10-31 20:31 | Internal Medicine Prog Note ---
Internal Medicine Subjective - Subjective Service Date: 10/31/18 Patient seen and examined:: with staff (HE IS STILL CONFUSED) Patient is:: awake, verbal, ambulating, talking Per staff patient has:: no adverse event Internal Medicine Objective - Results Result Diagrams: 10/27/18 17:30 10/27/18 17:30 Recent Labs: Laboratory Last Values WBC 8.0 Th/cmm (4.8-10.8) 10/27/18 17:30 RBC 4.40 Mil/cmm (3.80-5.80) 10/27/18 17:30 Hgb 14.7 gm/dL (12-16) 10/27/18 17:30 Hct 42.1 % (41.0-60) 10/27/18 17:30 MCV 95.6 fl (80-99) 10/27/18 17:30 MCH 33.4 pg (27.0-31.0) H 10/27/18 17:30 MCHC Differential 34.9 pg (28.0-36.0) 10/27/18 17:30 RDW 14.3 % (11.5-20.0) 10/27/18 17:30 Plt Count 167 Th/cmm (150-400) 10/27/18 17:30 MPV 9.1 fl 10/27/18 17:30 Neutrophils % 69.2 % (40.0-80.0) 10/27/18 17:30 Lymphocytes % 19.4 % (20.0-50.0) L 10/27/18 17:30 Monocytes % 6.5 % (2.0-10.0) 10/27/18 17:30 Eosinophils % 4.9 % (0.0-5.0) 10/27/18 17:30 Basophils % 0.0 % (0.0-2.0) 10/27/18 17:30 Sodium 144 mEq/L (136-145) 10/27/18 17:30 Potassium 3.8 mEq/L (3.5-5.1) 10/27/18 17:30 Chloride 109 mEq/L (98-107) H 10/27/18 17:30 Carbon Dioxide 26.8 mEq/L (21.0-31.0) 10/27/18 17:30 Anion Gap 12.0 (7.0-16.0) 10/27/18 17:30 BUN 20 mg/dL (7-25) 10/27/18 17:30 Creatinine 1.0 mg/dL (0.7-1.3) 10/27/18 17:30 Est GFR ( Amer) TNP 10/27/18 17:30 Est GFR (Non-Af Amer) TNP 10/27/18 17:30 BUN/Creatinine Ratio 20.0 10/27/18 17:30 Glucose 90 mg/dL (70-105) 10/27/18 17:30 Calcium 9.2 mg/dL (8.6-10.3) 10/27/18 17:30 Total Bilirubin 0.3 mg/dL (0.3-1.0) 10/27/18 17:30 AST 12 U/L (13-39) L 10/27/18 17:30 ALT 12 U/L (7-52) 10/27/18 17:30 Alkaline Phosphatase 72 U/L (34-104) 10/27/18 17:30 Troponin I 0.01 ng/mL (0.01-0.05) 10/27/18 17:30 Total Protein 6.4 gm/dL (6.0-8.3) 10/27/18 17:30 Albumin 3.5 gm/dL (4.2-5.5) L 10/27/18 17:30 Globulin 2.9 gm/dL 10/27/18 17:30 Albumin/Globulin Ratio 1.2 (1.0-1.8) 10/27/18 17:30 Triglycerides 252 mg/dL (<150) H 10/27/18 17:30 Cholesterol 153 mg/dL (<200) 10/27/18 17:30 LDL Cholesterol Direct 78 mg/dL (75-193) 10/27/18 17:30 HDL Cholesterol 43 mg/dL (23-92) 10/27/18 17:30 TSH 1.88 uIU/ml (0.34-5.60) 10/27/18 17:30 Urine Source CLEAN C 10/27/18 17:30 Urine Color YELLOW 10/27/18 17:30 Urine Clarity CLEAR (CLEAR) 10/27/18 17:30 Urine pH 5.5 (4.6 - 8.0) 10/27/18 17:30 Ur Specific [place] 1.015 (1.005-1.030) 10/27/18 17:30 Urine Protein NEGATIVE mg/dL (NEGATIVE) 10/27/18 17:30 Urine Glucose (UA) NEGATIVE mg/dL (NEGATIVE) 10/27/18 17:30 Urine Ketones NEGATIVE mg/dL (NEGATIVE) 10/27/18 17:30 Urine Blood TRACE (NEGATIVE) 10/27/18 17:30 Urine Nitrate NEGATIVE (NEGATIVE) 10/27/18 17:30 Urine Bilirubin NEGATIVE (NEGATIVE) 10/27/18 17:30 Urine Urobilinogen 0.2 E.U./dL (0.2 - 1.0) 10/27/18 17:30 Ur Leukocyte Esterase NEGATIVE (NEGATIVE) 10/27/18 17:30 Urine RBC 2-5 /hpf (0-5) H 10/27/18 17:30 Urine WBC 0-2 /hpf (0-5) 10/27/18 17:30 Ur Epithelial Cells NONE SEEN /lpf (FEW) 10/27/18 17:30 Urine Bacteria FEW /hpf (NONE SEEN) 10/27/18 17:30 Salicylates < 25.0 mg/L (30.0-100.0) L 10/27/18 17:30 Urine Opiates Screen NEGATIVE (NEGATIVE) 10/27/18 17:30 Urine Methadone Screen NEGATIVE (NEGATIVE) 10/27/18 17:30 Acetaminophen 10.0 ug/mL (10.0-30.0) 10/27/18 17:30 Ur Barbiturates Screen NEGATIVE (NEGATIVE) 10/27/18 17:30 Valproic Acid < 10.0 ug/mL (50.0-100.0) L 10/27/18 17:30 Ur Tricyclics Screen NEGATIVE (NEGATIVE) 10/27/18 17:30 Ur Phencyclidine Scrn NEGATIVE (NEGATIVE) 10/27/18 17:30 Amphetamines Screen NEGATIVE (NEGATIVE) 10/27/18 17:30 U Methamphetamines Scrn NEGATIVE (NEGATIVE) 10/27/18 17:30 U Benzodiazepines Scrn NEGATIVE (NEGATIVE) 10/27/18 17:30 U Cocaine Metab Screen NEGATIVE (NEGATIVE) 10/27/18 17:30 U Cannabinoids Screen NEGATIVE (NEGATIVE) 10/27/18 17:30 Ethyl Alcohol < 10 mg/dL (0-10) 10/27/18 17:30 RPR NONREACTIVE (NONREACTIVE) 10/27/18 17:30 - Physical Exam Vitals and I&O: Vital Signs Temp 98.6 F 10/31/18 19:50 Pulse 67 10/31/18 19:50 Resp 20 10/31/18 19:50 BP 115/73 10/31/18 19:50 Pulse Ox 98 10/31/18 19:50 Intake & Output 10/31/18 10/31/18 11/01/18 06:59 18:59 06:59 Intake Total 400 900 120 Balance 400 900 120 Intake: Oral 400 900 120 Other: # Voids 3 3 1 # Bowel Movements 0 1 0 Active Medications: Current Medications Acetaminophen (Tylenol) 650 mg PO Q4HR PRN PRN Reason: Pain (Mild) Stop: 12/26/18 19:35 Al Hydrox/Mg Hydrox/Simethicone (Maalox) 30 ml PO Q4HR PRN PRN Reason: GI DISTRESS Stop: 12/26/18 20:34 Atorvastatin Calcium (Lipitor) 20 mg PO HS JL; Protocol Stop: 12/26/18 20:59 Last Admin: 10/30/18 20:51 Dose: 20 mg Cholecalciferol (Vitamin D3) 2,000 iu PO DAILY JL Stop: 12/27/18 08:59 Last Admin: 10/31/18 08:20 Dose: 2,000 iu Clozapine (Clozaril) 100 mg PO DAILY JL; Protocol Stop: 12/27/18 15:44 Last Admin: 10/31/18 08:20 Dose: 100 mg Clozapine (Clozaril) 400 mg PO HS JL; Protocol Stop: 12/27/18 20:59 Last Admin: 10/30/18 20:59 Dose: 400 mg Docusate Sodium (Colace) 100 mg PO BID JL Stop: 12/27/18 08:59 Last Admin: 10/31/18 17:35 Dose: 100 mg Lorazepam (Ativan) 0.5 mg PO Q4H PRN; Protocol PRN Reason: Psychois/Agitation/Anxiety Stop: 12/26/18 22:39 Last Admin: 10/30/18 23:01 Dose: 0.5 mg Magnesium Hydroxide (Milk Of Magnesia) 30 ml PO HS PRN PRN Reason: Constipation Zolpidem Tartrate (Ambien) 5 mg PO HS PRN PRN Reason: Insomnia Stop: 12/26/18 22:41 Last Admin: 10/30/18 21:00 Dose: 5 mg General: demented HEENT: NC/AT, PERRLA, EOMI, anicteric sclerae, throat clear Neck: Supple, No JVD, No thyromegaly, +2 carotid pulse wo bruit, No LAD Lungs: CTAB Cardiovascular: RRR, Normal S1, Normal S2, without murmur Abdomen: soft, non-tender, non-distended Extremities: clear Neurological: no change Internal Medicine Assmt/Plan - Assessment Assessment: 1.HYPERLIPIDEMIA. 2.DJD. 3.PSYCHOSIS - Plan Plan: CONTINUE ON CURRENT MEDICATION AND DIET.
[2018-10-31] MEDS: Atorvastatin Calcium 10 MG TAB PO SCH (21:14)
--- NOTE | 2018-10-31 21:47 | Progress Notes ---
DATE: 10/31/2018 SUBJECTIVE: A 73-year-old male under the care of Dr. Booth, multiple hospitalizations, schizophrenia. States he is here because "I blew my mind on LSD." His plan is to leave the hospital, go to [place]. Mostly perseverative, keeps talking about LSD, withdrawn, keeps to self, concerns for his thought processes, disorganized thought processes. Per staff and Dr. Booth, appears of acting out, complaints from other patients, long history of mental illness, on Clozaril. Isolative, withdrawn, negative symptoms of schizophrenia are apparent, mostly keeps to self. We will continue dosing of Clozaril. Vitals were noted. The patient denying any chest pain. No abdominal pain. PLAN: We will continue to monitor ongoing symptoms. JOB# [id number]
--- NOTE | 2018-11-01 13:17 | Internal Medicine Prog Note ---
Internal Medicine Subjective - Subjective Service Date: 11/01/18 Patient seen and examined:: without staff (HE IS CONFUSED) Patient is:: awake, verbal, ambulating, talking Per staff patient has:: no adverse event Internal Medicine Objective - Results Result Diagrams: 10/27/18 17:30 10/27/18 17:30 Recent Labs: Laboratory Last Values WBC 8.0 Th/cmm (4.8-10.8) 10/27/18 17:30 RBC 4.40 Mil/cmm (3.80-5.80) 10/27/18 17:30 Hgb 14.7 gm/dL (12-16) 10/27/18 17:30 Hct 42.1 % (41.0-60) 10/27/18 17:30 MCV 95.6 fl (80-99) 10/27/18 17:30 MCH 33.4 pg (27.0-31.0) H 10/27/18 17:30 MCHC Differential 34.9 pg (28.0-36.0) 10/27/18 17:30 RDW 14.3 % (11.5-20.0) 10/27/18 17:30 Plt Count 167 Th/cmm (150-400) 10/27/18 17:30 MPV 9.1 fl 10/27/18 17:30 Neutrophils % 69.2 % (40.0-80.0) 10/27/18 17:30 Lymphocytes % 19.4 % (20.0-50.0) L 10/27/18 17:30 Monocytes % 6.5 % (2.0-10.0) 10/27/18 17:30 Eosinophils % 4.9 % (0.0-5.0) 10/27/18 17:30 Basophils % 0.0 % (0.0-2.0) 10/27/18 17:30 Sodium 144 mEq/L (136-145) 10/27/18 17:30 Potassium 3.8 mEq/L (3.5-5.1) 10/27/18 17:30 Chloride 109 mEq/L (98-107) H 10/27/18 17:30 Carbon Dioxide 26.8 mEq/L (21.0-31.0) 10/27/18 17:30 Anion Gap 12.0 (7.0-16.0) 10/27/18 17:30 BUN 20 mg/dL (7-25) 10/27/18 17:30 Creatinine 1.0 mg/dL (0.7-1.3) 10/27/18 17:30 Est GFR ( Amer) TNP 10/27/18 17:30 Est GFR (Non-Af Amer) TNP 10/27/18 17:30 BUN/Creatinine Ratio 20.0 10/27/18 17:30 Glucose 90 mg/dL (70-105) 10/27/18 17:30 Calcium 9.2 mg/dL (8.6-10.3) 10/27/18 17:30 Total Bilirubin 0.3 mg/dL (0.3-1.0) 10/27/18 17:30 AST 12 U/L (13-39) L 10/27/18 17:30 ALT 12 U/L (7-52) 10/27/18 17:30 Alkaline Phosphatase 72 U/L (34-104) 10/27/18 17:30 Troponin I 0.01 ng/mL (0.01-0.05) 10/27/18 17:30 Total Protein 6.4 gm/dL (6.0-8.3) 10/27/18 17:30 Albumin 3.5 gm/dL (4.2-5.5) L 10/27/18 17:30 Globulin 2.9 gm/dL 10/27/18 17:30 Albumin/Globulin Ratio 1.2 (1.0-1.8) 10/27/18 17:30 Triglycerides 252 mg/dL (<150) H 10/27/18 17:30 Cholesterol 153 mg/dL (<200) 10/27/18 17:30 LDL Cholesterol Direct 78 mg/dL (75-193) 10/27/18 17:30 HDL Cholesterol 43 mg/dL (23-92) 10/27/18 17:30 TSH 1.88 uIU/ml (0.34-5.60) 10/27/18 17:30 Urine Source CLEAN C 10/27/18 17:30 Urine Color YELLOW 10/27/18 17:30 Urine Clarity CLEAR (CLEAR) 10/27/18 17:30 Urine pH 5.5 (4.6 - 8.0) 10/27/18 17:30 Ur Specific [place] 1.015 (1.005-1.030) 10/27/18 17:30 Urine Protein NEGATIVE mg/dL (NEGATIVE) 10/27/18 17:30 Urine Glucose (UA) NEGATIVE mg/dL (NEGATIVE) 10/27/18 17:30 Urine Ketones NEGATIVE mg/dL (NEGATIVE) 10/27/18 17:30 Urine Blood TRACE (NEGATIVE) 10/27/18 17:30 Urine Nitrate NEGATIVE (NEGATIVE) 10/27/18 17:30 Urine Bilirubin NEGATIVE (NEGATIVE) 10/27/18 17:30 Urine Urobilinogen 0.2 E.U./dL (0.2 - 1.0) 10/27/18 17:30 Ur Leukocyte Esterase NEGATIVE (NEGATIVE) 10/27/18 17:30 Urine RBC 2-5 /hpf (0-5) H 10/27/18 17:30 Urine WBC 0-2 /hpf (0-5) 10/27/18 17:30 Ur Epithelial Cells NONE SEEN /lpf (FEW) 10/27/18 17:30 Urine Bacteria FEW /hpf (NONE SEEN) 10/27/18 17:30 Salicylates < 25.0 mg/L (30.0-100.0) L 10/27/18 17:30 Urine Opiates Screen NEGATIVE (NEGATIVE) 10/27/18 17:30 Urine Methadone Screen NEGATIVE (NEGATIVE) 10/27/18 17:30 Acetaminophen 10.0 ug/mL (10.0-30.0) 10/27/18 17:30 Ur Barbiturates Screen NEGATIVE (NEGATIVE) 10/27/18 17:30 Valproic Acid < 10.0 ug/mL (50.0-100.0) L 10/27/18 17:30 Ur Tricyclics Screen NEGATIVE (NEGATIVE) 10/27/18 17:30 Ur Phencyclidine Scrn NEGATIVE (NEGATIVE) 10/27/18 17:30 Amphetamines Screen NEGATIVE (NEGATIVE) 10/27/18 17:30 U Methamphetamines Scrn NEGATIVE (NEGATIVE) 10/27/18 17:30 U Benzodiazepines Scrn NEGATIVE (NEGATIVE) 10/27/18 17:30 U Cocaine Metab Screen NEGATIVE (NEGATIVE) 10/27/18 17:30 U Cannabinoids Screen NEGATIVE (NEGATIVE) 10/27/18 17:30 Ethyl Alcohol < 10 mg/dL (0-10) 10/27/18 17:30 RPR NONREACTIVE (NONREACTIVE) 10/27/18 17:30 - Physical Exam Vitals and I&O: Vital Signs Temp 98.6 F 10/31/18 19:50 Pulse 67 10/31/18 19:50 Resp 20 10/31/18 20:00 BP 115/73 10/31/18 19:50 Pulse Ox 98 10/31/18 19:50 Intake & Output 10/31/18 11/01/18 11/01/18 18:59 06:59 18:59 Intake Total 900 120 Balance 900 120 Intake: Oral 900 120 Other: # Voids 3 1 # Bowel Movements 1 0 Active Medications: Current Medications Acetaminophen (Tylenol) 650 mg PO Q4HR PRN PRN Reason: Pain (Mild) Stop: 12/26/18 19:35 Al Hydrox/Mg Hydrox/Simethicone (Maalox) 30 ml PO Q4HR PRN PRN Reason: GI DISTRESS Stop: 12/26/18 20:34 Atorvastatin Calcium (Lipitor) 20 mg PO HS JL; Protocol Stop: 12/26/18 20:59 Last Admin: 10/31/18 21:14 Dose: 20 mg Cholecalciferol (Vitamin D3) 2,000 iu PO DAILY JL Stop: 12/27/18 08:59 Last Admin: 11/01/18 11:46 Dose: 2,000 iu Clozapine (Clozaril) 100 mg PO DAILY JL; Protocol Stop: 12/27/18 15:44 Last Admin: 11/01/18 11:47 Dose: 100 mg Clozapine (Clozaril) 400 mg PO HS JL; Protocol Stop: 12/27/18 20:59 Last Admin: 10/31/18 21:14 Dose: 400 mg Docusate Sodium (Colace) 100 mg PO BID JL Stop: 12/27/18 08:59 Last Admin: 11/01/18 11:47 Dose: 100 mg Lorazepam (Ativan) 0.5 mg PO Q4H PRN; Protocol PRN Reason: Psychois/Agitation/Anxiety Stop: 12/26/18 22:39 Last Admin: 10/30/18 23:01 Dose: 0.5 mg Magnesium Hydroxide (Milk Of Magnesia) 30 ml PO HS PRN PRN Reason: Constipation Zolpidem Tartrate (Ambien) 5 mg PO HS PRN PRN Reason: Insomnia Stop: 12/26/18 22:41 Last Admin: 10/31/18 21:15 Dose: 5 mg General: demented HEENT: NC/AT, PERRLA, EOMI, anicteric sclerae, throat clear Neck: Supple, No JVD, No thyromegaly, +2 carotid pulse wo bruit, No LAD Lungs: CTAB Cardiovascular: RRR, Normal S1, Normal S2, without murmur Abdomen: soft, non-tender, non-distended Extremities: clear Neurological: no change Internal Medicine Assmt/Plan - Assessment Assessment: 1.HYPERLIPIDEMIA. 2.DJD. 3.PSYCHOSIS - Plan Plan: CONTINUE ON CURRENT MEDICATION AND DIET. Nutritional Asmnt/Malnutr-PDOC - Dietary Evaluation Malnutrition Findings (Please click <Entered> for more info): Nutritional Asmnt/Malnutrition Start: 11/01/18 12: 39 Text: Status: Complete Freq: Protocol: Document 11/01/18 12:39 SHAWN (Rec: 11/01/18 12:42 SHAWN [email or web address]) Nutritional Asmnt/Malnutrition Patient General Information Nutritional Screening Moderate Risk Diagnosis PSYCHOSIS Pertinent Medical Hx/Surgical Hx HYPERLIPIDEMIA, DJD, PSYCHOSIS , HTN, BIPOLAR DISORDER Subjective Information PT IS A 73 YEAR OLD MALE [facility] ADMITTED D/T ONSET AGITATION AND HOSTILE BEHAVIOR X3 DAYS. PT HAS EATEN 100% MEALS ALMOST EVERY MEAL SINCE ADMIT PER MEAL/NUTRITION ACTIVITY RECORD. HT: 59 WT: 165 LB (75 KG) BMI: 24.37 (NORMAL) GI: WNL, FLAT, SOFT BM: 10/30 X 1 I/O: 1020/NOT NOTED SKIN: WNL, INTACT RAIN: 20 DIET ORDER: MECHANICAL SOFT ESTIMATED ENERGY NEEDS: ( GERIATRIC, CBW) 4873-5085 KCALS (25-30 KCALS/ KG) 75-90 G PRO (1.0-1.2 G/KG) 2720-2892 ML (25-30 ML/KG) PT PO INTAKE: 100% MEALS PER MEAL/NUTRITION ACTIVITY RECORD . DIETARY IS CURRENTLY PROVIDING AN ESTIMATED 2480 KCALS AND 117 GM PRO TO MEET 100+% KCAL AND 100+% PRO NEEDS . Current Diet Order/ Nutrition Support MECHANICAL SOFT Pertinent Medications MAALOX (PRN), LIPITOR, VIT D3, COLACE, MOM (PRN) Pertinent Labs 10/27: AST 12, ALB 3.5, TAGS 252 Nutritional Hx/Data Height 1.75 m Height (Calculated Centimeters) 175.3 Current Weight (lbs) 74.843 kg Weight (Calculated Kilograms) 74.8 Weight (Calculated Grams) 51358.7 [place] Body Weight 160 LB (72.73 KG) % [place] Body Weight 103 Body Mass Index (BMI) 24.3 Weight Status Approriate GI Symptoms GI Symptoms None Last BM 10/30 X 1 Skin Integrity/Comment: WNL, INTACT RAIN: 20 Estimated Nutritional Goals BEE in Kcals: Using Current wt Calories/Kcals/Kg 25-30 Kcals Calculated 1563-9012 Protein: Using Current wt Protein g/k.0-1.2 Protein Calculated 75-90 Fluid: ml 3399-5897 ML (25-30 ML/KG) Nutritional Problem No current Nutrition Prob Problem NO NUTRITION DIAGNOSIS AT THIS TIME. Etiology N/A Signs/Symptoms: N/A Malnutrition Related to Morbid Obesity Malnutrition related to morbid obesity No Intervention/Recommendation Comments CONTINUE WITH MECHANICAL SOFT DIET ORDERED. Expected Outcomes/Goals Expected Outcomes/Goals 1. PO INTAKE TO CONTINUE TO MEET > 75% OF NUTRITIONAL NEEDS. 2. MONITOR PO INTAKE, WT, NUTRITION RELATED LABS AND SKIN INTEGRITY. 3. F/U LOW RISK IN 7 DAYS, 11/09
[2018-11-01] MEDS: Atorvastatin Calcium 10 MG TAB PO SCH (21:07)
--- NOTE | 2018-11-01 23:39 | Progress Notes ---
DATE: 11/01/2018 Case was discussed with staff of the patient, reviewed records. The patient continues to be unpredictable, impulsive, needing redirection. Continues to have poor insight. Unable to make safe plan for self-care. He sometimes get agitated, intrusive. Continues to need redirection. He planned to leave the hospital, go to [place]. Perseverating, talking about LSD. They are working on placement for this patient. He needs to go to a locked facility. He is conserved. We will continue to work with the patient in group therapy, milieu therapy, and adjust the medications as needed. JOB# [id number]
[2018-11-02] MEDS: Atorvastatin Calcium 10 MG TAB PO SCH (21:10)
--- NOTE | 2018-11-02 21:25 | Progress Notes ---
DATE: 11/02/2018 SUBJECTIVE: Case was discussed with staff of the patient, reviewed records. The patient has been isolating himself. He is sleeping better, eating better. He has not been acting out in anyway dangerous. He tolerated the Clozaril with no side effects, no sedation, no nausea, no extrapyramidal symptoms. The Clozaril was increased to 500 mg at bedtime upon admission. Working on placement, may be going to [facility] soon. No side effects with the medication, no sedation, no nausea, no extrapyramidal symptoms. His lab work shows high MCH, low lymphocytes, the rest within normal range. Chemistry panel with high chloride, low AST and low albumin and high triglyceride, the rest of the lipid panel within normal range. ____ within normal range. Urinalysis is 2-5 red cells. RPR is nonreactive. Toxicology screen was negative. We will continue the patient in group therapy, milieu therapy, and adjust medications. [facility]# [id number]
--- NOTE | 2018-11-02 22:12 | Internal Medicine Prog Note ---
Internal Medicine Subjective - Subjective Service Date: 11/02/18 Patient seen and examined:: without staff (HE IS STILL CONFUSED) Patient is:: awake, verbal, ambulating, talking Per staff patient has:: no adverse event Internal Medicine Objective - Results Result Diagrams: 10/27/18 17:30 10/27/18 17:30 Recent Labs: Laboratory Last Values WBC 8.0 Th/cmm (4.8-10.8) 10/27/18 17:30 RBC 4.40 Mil/cmm (3.80-5.80) 10/27/18 17:30 Hgb 14.7 gm/dL (12-16) 10/27/18 17:30 Hct 42.1 % (41.0-60) 10/27/18 17:30 MCV 95.6 fl (80-99) 10/27/18 17:30 MCH 33.4 pg (27.0-31.0) H 10/27/18 17:30 MCHC Differential 34.9 pg (28.0-36.0) 10/27/18 17:30 RDW 14.3 % (11.5-20.0) 10/27/18 17:30 Plt Count 167 Th/cmm (150-400) 10/27/18 17:30 MPV 9.1 fl 10/27/18 17:30 Neutrophils % 69.2 % (40.0-80.0) 10/27/18 17:30 Lymphocytes % 19.4 % (20.0-50.0) L 10/27/18 17:30 Monocytes % 6.5 % (2.0-10.0) 10/27/18 17:30 Eosinophils % 4.9 % (0.0-5.0) 10/27/18 17:30 Basophils % 0.0 % (0.0-2.0) 10/27/18 17:30 Sodium 144 mEq/L (136-145) 10/27/18 17:30 Potassium 3.8 mEq/L (3.5-5.1) 10/27/18 17:30 Chloride 109 mEq/L (98-107) H 10/27/18 17:30 Carbon Dioxide 26.8 mEq/L (21.0-31.0) 10/27/18 17:30 Anion Gap 12.0 (7.0-16.0) 10/27/18 17:30 BUN 20 mg/dL (7-25) 10/27/18 17:30 Creatinine 1.0 mg/dL (0.7-1.3) 10/27/18 17:30 Est GFR ( Amer) TNP 10/27/18 17:30 Est GFR (Non-Af Amer) TNP 10/27/18 17:30 BUN/Creatinine Ratio 20.0 10/27/18 17:30 Glucose 90 mg/dL (70-105) 10/27/18 17:30 Calcium 9.2 mg/dL (8.6-10.3) 10/27/18 17:30 Total Bilirubin 0.3 mg/dL (0.3-1.0) 10/27/18 17:30 AST 12 U/L (13-39) L 10/27/18 17:30 ALT 12 U/L (7-52) 10/27/18 17:30 Alkaline Phosphatase 72 U/L (34-104) 10/27/18 17:30 Troponin I 0.01 ng/mL (0.01-0.05) 10/27/18 17:30 Total Protein 6.4 gm/dL (6.0-8.3) 10/27/18 17:30 Albumin 3.5 gm/dL (4.2-5.5) L 10/27/18 17:30 Globulin 2.9 gm/dL 10/27/18 17:30 Albumin/Globulin Ratio 1.2 (1.0-1.8) 10/27/18 17:30 Triglycerides 252 mg/dL (<150) H 10/27/18 17:30 Cholesterol 153 mg/dL (<200) 10/27/18 17:30 LDL Cholesterol Direct 78 mg/dL (75-193) 10/27/18 17:30 HDL Cholesterol 43 mg/dL (23-92) 10/27/18 17:30 TSH 1.88 uIU/ml (0.34-5.60) 10/27/18 17:30 Urine Source CLEAN C 10/27/18 17:30 Urine Color YELLOW 10/27/18 17:30 Urine Clarity CLEAR (CLEAR) 10/27/18 17:30 Urine pH 5.5 (4.6 - 8.0) 10/27/18 17:30 Ur Specific [place] 1.015 (1.005-1.030) 10/27/18 17:30 Urine Protein NEGATIVE mg/dL (NEGATIVE) 10/27/18 17:30 Urine Glucose (UA) NEGATIVE mg/dL (NEGATIVE) 10/27/18 17:30 Urine Ketones NEGATIVE mg/dL (NEGATIVE) 10/27/18 17:30 Urine Blood TRACE (NEGATIVE) 10/27/18 17:30 Urine Nitrate NEGATIVE (NEGATIVE) 10/27/18 17:30 Urine Bilirubin NEGATIVE (NEGATIVE) 10/27/18 17:30 Urine Urobilinogen 0.2 E.U./dL (0.2 - 1.0) 10/27/18 17:30 Ur Leukocyte Esterase NEGATIVE (NEGATIVE) 10/27/18 17:30 Urine RBC 2-5 /hpf (0-5) H 10/27/18 17:30 Urine WBC 0-2 /hpf (0-5) 10/27/18 17:30 Ur Epithelial Cells NONE SEEN /lpf (FEW) 10/27/18 17:30 Urine Bacteria FEW /hpf (NONE SEEN) 10/27/18 17:30 Salicylates < 25.0 mg/L (30.0-100.0) L 10/27/18 17:30 Urine Opiates Screen NEGATIVE (NEGATIVE) 10/27/18 17:30 Urine Methadone Screen NEGATIVE (NEGATIVE) 10/27/18 17:30 Acetaminophen 10.0 ug/mL (10.0-30.0) 10/27/18 17:30 Ur Barbiturates Screen NEGATIVE (NEGATIVE) 10/27/18 17:30 Valproic Acid < 10.0 ug/mL (50.0-100.0) L 10/27/18 17:30 Ur Tricyclics Screen NEGATIVE (NEGATIVE) 10/27/18 17:30 Ur Phencyclidine Scrn NEGATIVE (NEGATIVE) 10/27/18 17:30 Amphetamines Screen NEGATIVE (NEGATIVE) 10/27/18 17:30 U Methamphetamines Scrn NEGATIVE (NEGATIVE) 10/27/18 17:30 U Benzodiazepines Scrn NEGATIVE (NEGATIVE) 10/27/18 17:30 U Cocaine Metab Screen NEGATIVE (NEGATIVE) 10/27/18 17:30 U Cannabinoids Screen NEGATIVE (NEGATIVE) 10/27/18 17:30 Ethyl Alcohol < 10 mg/dL (0-10) 10/27/18 17:30 RPR NONREACTIVE (NONREACTIVE) 10/27/18 17:30 - Physical Exam Vitals and I&O: Vital Signs Temp 97.9 F 11/02/18 14:00 Pulse 75 11/02/18 14:00 Resp 18 11/02/18 14:00 BP 109/70 11/02/18 14:00 Pulse Ox 96 11/02/18 14:00 Intake & Output 11/02/18 11/02/18 11/03/18 06:59 18:59 06:59 Intake Total 1500 Balance 1500 Intake: Oral 1500 Other: # Voids 3 # Bowel Movements 0 Active Medications: Current Medications Acetaminophen (Tylenol) 650 mg PO Q4HR PRN PRN Reason: Pain (Mild) Stop: 12/26/18 19:35 Al Hydrox/Mg Hydrox/Simethicone (Maalox) 30 ml PO Q4HR PRN PRN Reason: GI DISTRESS Stop: 12/26/18 20:34 Atorvastatin Calcium (Lipitor) 20 mg PO HS JL; Protocol Stop: 12/26/18 20:59 Last Admin: 11/02/18 21:10 Dose: 20 mg Cholecalciferol (Vitamin D3) 2,000 iu PO DAILY JL Stop: 12/27/18 08:59 Last Admin: 11/02/18 09:09 Dose: 2,000 iu Clozapine (Clozaril) 100 mg PO DAILY JL; Protocol Stop: 12/27/18 15:44 Last Admin: 11/02/18 09:08 Dose: 100 mg Clozapine (Clozaril) 400 mg PO HS JL; Protocol Stop: 12/27/18 20:59 Last Admin: 11/02/18 21:10 Dose: 400 mg Docusate Sodium (Colace) 100 mg PO BID JL Stop: 12/27/18 08:59 Last Admin: 11/02/18 16:53 Dose: Not Given Lorazepam (Ativan) 0.5 mg PO Q4H PRN; Protocol PRN Reason: Psychois/Agitation/Anxiety Stop: 12/26/18 22:39 Last Admin: 10/30/18 23:01 Dose: 0.5 mg Magnesium Hydroxide (Milk Of Magnesia) 30 ml PO HS PRN PRN Reason: Constipation Zolpidem Tartrate (Ambien) 5 mg PO HS PRN PRN Reason: Insomnia Stop: 12/26/18 22:41 Last Admin: 11/02/18 21:10 Dose: 5 mg General: demented HEENT: NC/AT, PERRLA, EOMI, anicteric sclerae, throat clear Neck: Supple, No JVD, No thyromegaly, +2 carotid pulse wo bruit, No LAD Lungs: CTAB Cardiovascular: RRR, Normal S1, Normal S2, without murmur Abdomen: soft, non-tender, non-distended Extremities: clear Neurological: no change Internal Medicine Assmt/Plan - Assessment Assessment: 1.HYPERLIPIDEMIA. 2.DJD. 3.PSYCHOSIS - Plan Plan: CONTINUE ON CURRENT MEDICATION AND DIET. Nutritional Asmnt/Malnutr-PDOC - Dietary Evaluation Malnutrition Findings (Please click <Entered> for more info): Nutritional Asmnt/Malnutrition Start: 11/01/18 12: 39 Text: Status: Complete Freq: Protocol: Document 11/01/18 12:39 SHAWN (Rec: 11/01/18 12:42 SHAWN [email or web address]) Nutritional Asmnt/Malnutrition Patient General Information Nutritional Screening Moderate Risk Diagnosis PSYCHOSIS Pertinent Medical Hx/Surgical Hx HYPERLIPIDEMIA, DJD, PSYCHOSIS , HTN, BIPOLAR DISORDER Subjective Information PT IS A 73 YEAR OLD MALE FROM [place] ADMITTED D/T ONSET AGITATION AND HOSTILE BEHAVIOR X3 DAYS. PT HAS EATEN 100% MEALS ALMOST EVERY MEAL SINCE ADMIT PER MEAL/NUTRITION ACTIVITY RECORD. HT: 59 WT: 165 LB (75 KG) BMI: 24.37 (NORMAL) GI: WNL, FLAT, SOFT BM: 10/30 X 1 I/O: 1020/NOT NOTED SKIN: WNL, INTACT RAIN: 20 DIET ORDER: MECHANICAL SOFT ESTIMATED ENERGY NEEDS: ( GERIATRIC, CBW) 9693-1233 KCALS (25-30 KCALS/ KG) 75-90 G PRO (1.0-1.2 G/KG) 6793-9184 ML (25-30 ML/KG) PT PO INTAKE: 100% MEALS PER MEAL/NUTRITION ACTIVITY RECORD . DIETARY IS CURRENTLY PROVIDING AN ESTIMATED 2480 KCALS AND 117 GM PRO TO MEET 100+% KCAL AND 100+% PRO NEEDS . Current Diet Order/ Nutrition Support MECHANICAL SOFT Pertinent Medications MAALOX (PRN), LIPITOR, VIT D3, COLACE, MOM (PRN) Pertinent Labs 10/27: AST 12, ALB 3.5, TAGS 252 Nutritional Hx/Data Height 1.75 m Height (Calculated Centimeters) 175.3 Current Weight (lbs) 74.843 kg Weight (Calculated Kilograms) 74.8 Weight (Calculated Grams) 88618.7 [place] Body Weight 160 LB (72.73 KG) % [place] Body Weight 103 Body Mass Index (BMI) 24.3 Weight Status Approriate GI Symptoms GI Symptoms None Last BM 10/30 X 1 Skin Integrity/Comment: WNL, INTACT RAIN: 20 Estimated Nutritional Goals BEE in Kcals: Using Current wt Calories/Kcals/Kg 25-30 Kcals Calculated 7034-3844 Protein: Using Current wt Protein g/k.0-1.2 Protein Calculated 75-90 Fluid: ml 5517-1706 ML (25-30 ML/KG) Nutritional Problem No current Nutrition Prob Problem NO NUTRITION DIAGNOSIS AT THIS TIME. Etiology N/A Signs/Symptoms: N/A Malnutrition Related to Morbid Obesity Malnutrition related to morbid obesity No Intervention/Recommendation Comments CONTINUE WITH MECHANICAL SOFT DIET ORDERED. Expected Outcomes/Goals Expected Outcomes/Goals 1. PO INTAKE TO CONTINUE TO MEET > 75% OF NUTRITIONAL NEEDS. 2. MONITOR PO INTAKE, WT, NUTRITION RELATED LABS AND SKIN INTEGRITY. 3. F/U LOW RISK IN 7 DAYS, 11/09
[2018-11-03 10:31] LABS: % EOSINOPHILS 5.9 % (0.0-5.0); % LYMPHOCYTES 20.8 % (20.0-50.0); % MONOCYTES 6.6 % (2.0-10.0); % NEUTROPHILS 63.7 % (40.0-80.0); BASOPHILE ABSOLUTE 0.2 Th/cumm (0-0.2); EOSINOPHILE ABSOLUTE 0.4 Th/cmm (0.1-0.4); HEMATOCRIT 42.2 % (41.0-60); HEMOGLOBIN 14.5 gm/dL (12-16); LYMPHOCYTE ABSOLUTE 1.4 Th/cmm (1.5-3.0); MEAN CELL VOLUME 95.9 fl (80-99); MEAN CORPUSCULAR HGB CONC 34.4 pg (28.0-36.0); MONOCYTE ABSOLUTE 0.4 Th/cmm (0.3-1.0); NEUTROPHILE ABSOLUTE 4.4 Th/cmm (1.8-8.0); PLATELET COUNT 169 Th/cmm (150-400); RED CELL DISTRIBUTION WIDTH 14.2 % (11.5-20.0); WHITE BLOOD COUNT 6.8 Th/cmm (4.8-10.8)
--- NOTE | 2018-11-03 20:01 | Discharge Summary ---
DATE OF DISCHARGE: 11/03/2018 IDENTIFYING INFORMATION: The patient is a 73-year-old male. HISTORY OF PRESENT ILLNESS: The patient was referred because the patient was acting inappropriately. He was agitated, hard to redirect with a history of schizophrenia. He was telling the staff _ use LSD, which is incorrect. Unable to participate in meaningful conversation or make a safe plan for self-care. Has history of hyperlipidemia, degenerative joint disease, history of schizophrenia. The patient has been at [facility] for a while. COURSE IN THE HOSPITAL: The patient started back on his medication, which was Clozaril 100 mg daily and 400 mg at bedtime, it was increased actually to 500 mg at bedtime. When I saw him on ____, the patient progressively got better. He was not acting out. He was sleeping well, eating well. So, we felt he could be discharged to a lesser level of care. FINAL DIAGNOSES: Chronic undifferentiated schizophrenia. The patient will be going to [facility]. He will follow up with the psychiatrist and primary care physician. EXPECTED OUTCOME: Stable if the patient complies with the above. JOB# [id number] SARANYA
[2018-11-03] MEDS: Atorvastatin Calcium 10 MG TAB PO SCH (21:25)
--- NOTE | 2018-11-03 23:56 | Internal Medicine Prog Note ---
Internal Medicine Subjective - Subjective Service Date: 11/03/18 Patient seen and examined:: without staff (HE IS DOING BETTER) Patient is:: awake, verbal, ambulating, talking Per staff patient has:: no adverse event Internal Medicine Objective - Results Result Diagrams: 11/03/18 10:20 10/27/18 17:30 Recent Labs: Laboratory Last Values WBC 6.8 Th/cmm (4.8-10.8) 11/03/18 10:20 RBC 4.40 Mil/cmm (3.80-5.80) 11/03/18 10:20 Hgb 14.5 gm/dL (12-16) 11/03/18 10:20 Hct 42.2 % (41.0-60) 11/03/18 10:20 MCV 95.9 fl (80-99) 11/03/18 10:20 MCH 33.0 pg (27.0-31.0) H 11/03/18 10:20 MCHC Differential 34.4 pg (28.0-36.0) 11/03/18 10:20 RDW 14.2 % (11.5-20.0) 11/03/18 10:20 Plt Count 169 Th/cmm (150-400) 11/03/18 10:20 MPV 8.7 fl 11/03/18 10:20 Neutrophils % 63.7 % (40.0-80.0) 11/03/18 10:20 Lymphocytes % 20.8 % (20.0-50.0) 11/03/18 10:20 Monocytes % 6.6 % (2.0-10.0) 11/03/18 10:20 Eosinophils % 5.9 % (0.0-5.0) H 11/03/18 10:20 Basophils % 3.0 % (0.0-2.0) H 11/03/18 10:20 Sodium 144 mEq/L (136-145) 10/27/18 17:30 Potassium 3.8 mEq/L (3.5-5.1) 10/27/18 17:30 Chloride 109 mEq/L (98-107) H 10/27/18 17:30 Carbon Dioxide 26.8 mEq/L (21.0-31.0) 10/27/18 17:30 Anion Gap 12.0 (7.0-16.0) 10/27/18 17:30 BUN 20 mg/dL (7-25) 10/27/18 17:30 Creatinine 1.0 mg/dL (0.7-1.3) 10/27/18 17:30 Est GFR ( Amer) TNP 10/27/18 17:30 Est GFR (Non-Af Amer) TNP 10/27/18 17:30 BUN/Creatinine Ratio 20.0 10/27/18 17:30 Glucose 90 mg/dL (70-105) 10/27/18 17:30 Calcium 9.2 mg/dL (8.6-10.3) 10/27/18 17:30 Total Bilirubin 0.3 mg/dL (0.3-1.0) 10/27/18 17:30 AST 12 U/L (13-39) L 10/27/18 17:30 ALT 12 U/L (7-52) 10/27/18 17:30 Alkaline Phosphatase 72 U/L (34-104) 10/27/18 17:30 Troponin I 0.01 ng/mL (0.01-0.05) 10/27/18 17:30 Total Protein 6.4 gm/dL (6.0-8.3) 10/27/18 17:30 Albumin 3.5 gm/dL (4.2-5.5) L 10/27/18 17:30 Globulin 2.9 gm/dL 10/27/18 17:30 Albumin/Globulin Ratio 1.2 (1.0-1.8) 10/27/18 17:30 Triglycerides 252 mg/dL (<150) H 10/27/18 17:30 Cholesterol 153 mg/dL (<200) 10/27/18 17:30 LDL Cholesterol Direct 78 mg/dL (75-193) 10/27/18 17:30 HDL Cholesterol 43 mg/dL (23-92) 10/27/18 17:30 TSH 1.88 uIU/ml (0.34-5.60) 10/27/18 17:30 Urine Source CLEAN C 10/27/18 17:30 Urine Color YELLOW 10/27/18 17:30 Urine Clarity CLEAR (CLEAR) 10/27/18 17:30 Urine pH 5.5 (4.6 - 8.0) 10/27/18 17:30 Ur Specific [place] 1.015 (1.005-1.030) 10/27/18 17:30 Urine Protein NEGATIVE mg/dL (NEGATIVE) 10/27/18 17:30 Urine Glucose (UA) NEGATIVE mg/dL (NEGATIVE) 10/27/18 17:30 Urine Ketones NEGATIVE mg/dL (NEGATIVE) 10/27/18 17:30 Urine Blood TRACE (NEGATIVE) 10/27/18 17:30 Urine Nitrate NEGATIVE (NEGATIVE) 10/27/18 17:30 Urine Bilirubin NEGATIVE (NEGATIVE) 10/27/18 17:30 Urine Urobilinogen 0.2 E.U./dL (0.2 - 1.0) 10/27/18 17:30 Ur Leukocyte Esterase NEGATIVE (NEGATIVE) 10/27/18 17:30 Urine RBC 2-5 /hpf (0-5) H 10/27/18 17:30 Urine WBC 0-2 /hpf (0-5) 10/27/18 17:30 Ur Epithelial Cells NONE SEEN /lpf (FEW) 10/27/18 17:30 Urine Bacteria FEW /hpf (NONE SEEN) 10/27/18 17:30 Salicylates < 25.0 mg/L (30.0-100.0) L 10/27/18 17:30 Urine Opiates Screen NEGATIVE (NEGATIVE) 10/27/18 17:30 Urine Methadone Screen NEGATIVE (NEGATIVE) 10/27/18 17:30 Acetaminophen 10.0 ug/mL (10.0-30.0) 10/27/18 17:30 Ur Barbiturates Screen NEGATIVE (NEGATIVE) 10/27/18 17:30 Valproic Acid < 10.0 ug/mL (50.0-100.0) L 10/27/18 17:30 Ur Tricyclics Screen NEGATIVE (NEGATIVE) 10/27/18 17:30 Ur Phencyclidine Scrn NEGATIVE (NEGATIVE) 10/27/18 17:30 Amphetamines Screen NEGATIVE (NEGATIVE) 10/27/18 17:30 U Methamphetamines Scrn NEGATIVE (NEGATIVE) 10/27/18 17:30 U Benzodiazepines Scrn NEGATIVE (NEGATIVE) 10/27/18 17:30 U Cocaine Metab Screen NEGATIVE (NEGATIVE) 10/27/18 17:30 U Cannabinoids Screen NEGATIVE (NEGATIVE) 10/27/18 17:30 Ethyl Alcohol < 10 mg/dL (0-10) 10/27/18 17:30 RPR NONREACTIVE (NONREACTIVE) 10/27/18 17:30 - Physical Exam Vitals and I&O: Vital Signs Temp 97.6 F 11/03/18 20:00 Pulse 72 11/03/18 20:00 Resp 19 11/03/18 20:00 BP 115/72 11/03/18 20:00 Pulse Ox 96 11/03/18 20:00 Intake & Output 11/03/18 11/03/18 11/04/18 06:59 18:59 06:59 Intake Total 1000 Balance 1000 Intake: Oral 1000 Other: # Voids 4 # Bowel Movements 1 Active Medications: Current Medications Acetaminophen (Tylenol) 650 mg PO Q4HR PRN PRN Reason: Pain (Mild) Stop: 12/26/18 19:35 Al Hydrox/Mg Hydrox/Simethicone (Maalox) 30 ml PO Q4HR PRN PRN Reason: GI DISTRESS Stop: 12/26/18 20:34 Atorvastatin Calcium (Lipitor) 20 mg PO HS JL; Protocol Stop: 12/26/18 20:59 Last Admin: 11/03/18 21:25 Dose: 20 mg Cholecalciferol (Vitamin D3) 2,000 iu PO DAILY JL Stop: 12/27/18 08:59 Last Admin: 11/03/18 08:09 Dose: 2,000 iu Clozapine (Clozaril) 100 mg PO DAILY JL; Protocol Stop: 12/27/18 15:44 Last Admin: 11/03/18 08:09 Dose: 100 mg Clozapine (Clozaril) 400 mg PO HS JL; Protocol Stop: 12/27/18 20:59 Last Admin: 11/03/18 21:25 Dose: 400 mg Docusate Sodium (Colace) 100 mg PO BID JL Stop: 12/27/18 08:59 Last Admin: 11/03/18 16:40 Dose: 100 mg Lorazepam (Ativan) 0.5 mg PO Q4H PRN; Protocol PRN Reason: Psychois/Agitation/Anxiety Stop: 12/26/18 22:39 Last Admin: 11/03/18 21:26 Dose: 0.5 mg Magnesium Hydroxide (Milk Of Magnesia) 30 ml PO HS PRN PRN Reason: Constipation Zolpidem Tartrate (Ambien) 5 mg PO HS PRN PRN Reason: Insomnia Stop: 12/26/18 22:41 Last Admin: 11/02/18 21:10 Dose: 5 mg General: demented HEENT: NC/AT, PERRLA, EOMI, anicteric sclerae, throat clear Neck: Supple, No JVD, No thyromegaly, +2 carotid pulse wo bruit, No LAD Lungs: CTAB Cardiovascular: RRR, Normal S1, Normal S2, without murmur Abdomen: soft, non-tender, non-distended Extremities: clear Neurological: no change Internal Medicine Assmt/Plan - Assessment Assessment: 1.HYPERLIPIDEMIA. 2.DJD. 3.PSYCHOSIS - Plan Plan: CONTINUE ON CURRENT MEDICATION AND DIET. Nutritional Asmnt/Malnutr-PDOC - Dietary Evaluation Malnutrition Findings (Please click <Entered> for more info): Nutritional Asmnt/Malnutrition Start: 11/01/18 12: 39 Text: Status: Complete Freq: Protocol: Document 11/01/18 12:39 SHAWN (Rec: 11/01/18 12:42 SHAWN [email or web address]) Nutritional Asmnt/Malnutrition Patient General Information Nutritional Screening Moderate Risk Diagnosis PSYCHOSIS Pertinent Medical Hx/Surgical Hx HYPERLIPIDEMIA, DJD, PSYCHOSIS , HTN, BIPOLAR DISORDER Subjective Information PT IS A 73 YEAR OLD MALE FROM [facility] ADMITTED D/T ONSET AGITATION AND HOSTILE BEHAVIOR X3 DAYS. PT HAS EATEN 100% MEALS ALMOST EVERY MEAL SINCE ADMIT PER MEAL/NUTRITION ACTIVITY RECORD. HT: 59 WT: 165 LB (75 KG) BMI: 24.37 (NORMAL) GI: WNL, FLAT, SOFT BM: 10/30 X 1 I/O: 1020/NOT NOTED SKIN: WNL, INTACT RAIN: 20 DIET ORDER: MECHANICAL SOFT ESTIMATED ENERGY NEEDS: ( GERIATRIC, CBW) 4304-1915 KCALS (25-30 KCALS/ KG) 75-90 G PRO (1.0-1.2 G/KG) 7347-8307 ML (25-30 ML/KG) PT PO INTAKE: 100% MEALS PER MEAL/NUTRITION ACTIVITY RECORD . DIETARY IS CURRENTLY PROVIDING AN ESTIMATED 2480 KCALS AND 117 GM PRO TO MEET 100+% KCAL AND 100+% PRO NEEDS . Current Diet Order/ Nutrition Support MECHANICAL SOFT Pertinent Medications MAALOX (PRN), LIPITOR, VIT D3, COLACE, MOM (PRN) Pertinent Labs 10/27: AST 12, ALB 3.5, TAGS 252 Nutritional Hx/Data Height 1.75 m Height (Calculated Centimeters) 175.3 Current Weight (lbs) 74.843 kg Weight (Calculated Kilograms) 74.8 Weight (Calculated Grams) 39608.7 [place] Body Weight 160 LB (72.73 KG) % [place] Body Weight 103 Body Mass Index (BMI) 24.3 Weight Status Approriate GI Symptoms GI Symptoms None Last BM 10/30 X 1 Skin Integrity/Comment: WNL, INTACT RAIN: 20 Estimated Nutritional Goals BEE in Kcals: Using Current wt Calories/Kcals/Kg 25-30 Kcals Calculated 3694-9331 Protein: Using Current wt Protein g/k.0-1.2 Protein Calculated 75-90 Fluid: ml 8718-3604 ML (25-30 ML/KG) Nutritional Problem No current Nutrition Prob Problem NO NUTRITION DIAGNOSIS AT THIS TIME. Etiology N/A Signs/Symptoms: N/A Malnutrition Related to Morbid Obesity Malnutrition related to morbid obesity No Intervention/Recommendation Comments CONTINUE WITH MECHANICAL SOFT DIET ORDERED. Expected Outcomes/Goals Expected Outcomes/Goals 1. PO INTAKE TO CONTINUE TO MEET > 75% OF NUTRITIONAL NEEDS. 2. MONITOR PO INTAKE, WT, NUTRITION RELATED LABS AND SKIN INTEGRITY. 3. F/U LOW RISK IN 7 DAYS, 11/09
--- NOTE | 2018-11-04 18:06 | Internal Medicine Prog Note ---
Internal Medicine Subjective - Subjective Service Date: 11/04/18 Patient seen and examined:: without staff (HE FEELS GOOD,NO COMPLAIN) Patient is:: awake, verbal, ambulating, talking Per staff patient has:: no adverse event Internal Medicine Objective - Results Result Diagrams: 11/03/18 10:20 10/27/18 17:30 Recent Labs: Laboratory Last Values WBC 6.8 Th/cmm (4.8-10.8) 11/03/18 10:20 RBC 4.40 Mil/cmm (3.80-5.80) 11/03/18 10:20 Hgb 14.5 gm/dL (12-16) 11/03/18 10:20 Hct 42.2 % (41.0-60) 11/03/18 10:20 MCV 95.9 fl (80-99) 11/03/18 10:20 MCH 33.0 pg (27.0-31.0) H 11/03/18 10:20 MCHC Differential 34.4 pg (28.0-36.0) 11/03/18 10:20 RDW 14.2 % (11.5-20.0) 11/03/18 10:20 Plt Count 169 Th/cmm (150-400) 11/03/18 10:20 MPV 8.7 fl 11/03/18 10:20 Neutrophils % 63.7 % (40.0-80.0) 11/03/18 10:20 Lymphocytes % 20.8 % (20.0-50.0) 11/03/18 10:20 Monocytes % 6.6 % (2.0-10.0) 11/03/18 10:20 Eosinophils % 5.9 % (0.0-5.0) H 11/03/18 10:20 Basophils % 3.0 % (0.0-2.0) H 11/03/18 10:20 Sodium 144 mEq/L (136-145) 10/27/18 17:30 Potassium 3.8 mEq/L (3.5-5.1) 10/27/18 17:30 Chloride 109 mEq/L (98-107) H 10/27/18 17:30 Carbon Dioxide 26.8 mEq/L (21.0-31.0) 10/27/18 17:30 Anion Gap 12.0 (7.0-16.0) 10/27/18 17:30 BUN 20 mg/dL (7-25) 10/27/18 17:30 Creatinine 1.0 mg/dL (0.7-1.3) 10/27/18 17:30 Est GFR ( Amer) TNP 10/27/18 17:30 Est GFR (Non-Af Amer) TNP 10/27/18 17:30 BUN/Creatinine Ratio 20.0 10/27/18 17:30 Glucose 90 mg/dL (70-105) 10/27/18 17:30 Calcium 9.2 mg/dL (8.6-10.3) 10/27/18 17:30 Total Bilirubin 0.3 mg/dL (0.3-1.0) 10/27/18 17:30 AST 12 U/L (13-39) L 10/27/18 17:30 ALT 12 U/L (7-52) 10/27/18 17:30 Alkaline Phosphatase 72 U/L (34-104) 10/27/18 17:30 Troponin I 0.01 ng/mL (0.01-0.05) 10/27/18 17:30 Total Protein 6.4 gm/dL (6.0-8.3) 10/27/18 17:30 Albumin 3.5 gm/dL (4.2-5.5) L 10/27/18 17:30 Globulin 2.9 gm/dL 10/27/18 17:30 Albumin/Globulin Ratio 1.2 (1.0-1.8) 10/27/18 17:30 Triglycerides 252 mg/dL (<150) H 10/27/18 17:30 Cholesterol 153 mg/dL (<200) 10/27/18 17:30 LDL Cholesterol Direct 78 mg/dL (75-193) 10/27/18 17:30 HDL Cholesterol 43 mg/dL (23-92) 10/27/18 17:30 TSH 1.88 uIU/ml (0.34-5.60) 10/27/18 17:30 Urine Source CLEAN C 10/27/18 17:30 Urine Color YELLOW 10/27/18 17:30 Urine Clarity CLEAR (CLEAR) 10/27/18 17:30 Urine pH 5.5 (4.6 - 8.0) 10/27/18 17:30 Ur Specific [place] 1.015 (1.005-1.030) 10/27/18 17:30 Urine Protein NEGATIVE mg/dL (NEGATIVE) 10/27/18 17:30 Urine Glucose (UA) NEGATIVE mg/dL (NEGATIVE) 10/27/18 17:30 Urine Ketones NEGATIVE mg/dL (NEGATIVE) 10/27/18 17:30 Urine Blood TRACE (NEGATIVE) 10/27/18 17:30 Urine Nitrate NEGATIVE (NEGATIVE) 10/27/18 17:30 Urine Bilirubin NEGATIVE (NEGATIVE) 10/27/18 17:30 Urine Urobilinogen 0.2 E.U./dL (0.2 - 1.0) 10/27/18 17:30 Ur Leukocyte Esterase NEGATIVE (NEGATIVE) 10/27/18 17:30 Urine RBC 2-5 /hpf (0-5) H 10/27/18 17:30 Urine WBC 0-2 /hpf (0-5) 10/27/18 17:30 Ur Epithelial Cells NONE SEEN /lpf (FEW) 10/27/18 17:30 Urine Bacteria FEW /hpf (NONE SEEN) 10/27/18 17:30 Salicylates < 25.0 mg/L (30.0-100.0) L 10/27/18 17:30 Urine Opiates Screen NEGATIVE (NEGATIVE) 10/27/18 17:30 Urine Methadone Screen NEGATIVE (NEGATIVE) 10/27/18 17:30 Acetaminophen 10.0 ug/mL (10.0-30.0) 10/27/18 17:30 Ur Barbiturates Screen NEGATIVE (NEGATIVE) 10/27/18 17:30 Valproic Acid < 10.0 ug/mL (50.0-100.0) L 10/27/18 17:30 Ur Tricyclics Screen NEGATIVE (NEGATIVE) 10/27/18 17:30 Ur Phencyclidine Scrn NEGATIVE (NEGATIVE) 10/27/18 17:30 Amphetamines Screen NEGATIVE (NEGATIVE) 10/27/18 17:30 U Methamphetamines Scrn NEGATIVE (NEGATIVE) 10/27/18 17:30 U Benzodiazepines Scrn NEGATIVE (NEGATIVE) 10/27/18 17:30 U Cocaine Metab Screen NEGATIVE (NEGATIVE) 10/27/18 17:30 U Cannabinoids Screen NEGATIVE (NEGATIVE) 10/27/18 17:30 Ethyl Alcohol < 10 mg/dL (0-10) 10/27/18 17:30 RPR NONREACTIVE (NONREACTIVE) 10/27/18 17:30 - Physical Exam Vitals and I&O: Vital Signs Temp 98 F 11/04/18 15:14 Pulse 69 11/04/18 15:14 Resp 20 11/04/18 15:14 BP 96/61 11/04/18 15:14 Pulse Ox 96 11/04/18 15:14 Intake & Output 11/03/18 11/04/18 11/04/18 18:59 06:59 18:59 Intake Total 1000 Balance 1000 Intake: Oral 1000 Other: # Voids 4 # Bowel Movements 1 Active Medications: Current Medications Acetaminophen (Tylenol) 650 mg PO Q4HR PRN PRN Reason: Pain (Mild) Stop: 12/26/18 19:35 Al Hydrox/Mg Hydrox/Simethicone (Maalox) 30 ml PO Q4HR PRN PRN Reason: GI DISTRESS Stop: 12/26/18 20:34 Atorvastatin Calcium (Lipitor) 20 mg PO HS JL; Protocol Stop: 12/26/18 20:59 Last Admin: 11/03/18 21:25 Dose: 20 mg Cholecalciferol (Vitamin D3) 2,000 iu PO DAILY JL Stop: 12/27/18 08:59 Last Admin: 11/04/18 08:29 Dose: 2,000 iu Clozapine (Clozaril) 100 mg PO DAILY JL; Protocol Stop: 12/27/18 15:44 Last Admin: 11/04/18 08:29 Dose: 100 mg Clozapine (Clozaril) 400 mg PO HS JL; Protocol Stop: 12/27/18 20:59 Last Admin: 11/03/18 21:25 Dose: 400 mg Docusate Sodium (Colace) 100 mg PO BID JL Stop: 12/27/18 08:59 Last Admin: 11/04/18 16:48 Dose: 100 mg Lorazepam (Ativan) 0.5 mg PO Q4H PRN; Protocol PRN Reason: Psychois/Agitation/Anxiety Stop: 12/26/18 22:39 Last Admin: 11/03/18 21:26 Dose: 0.5 mg Magnesium Hydroxide (Milk Of Magnesia) 30 ml PO HS PRN PRN Reason: Constipation Zolpidem Tartrate (Ambien) 5 mg PO HS PRN PRN Reason: Insomnia Stop: 12/26/18 22:41 Last Admin: 11/02/18 21:10 Dose: 5 mg General: demented HEENT: NC/AT, PERRLA, EOMI, anicteric sclerae, throat clear Neck: Supple, No JVD, No thyromegaly, +2 carotid pulse wo bruit, No LAD Lungs: CTAB Cardiovascular: RRR, Normal S1, Normal S2, without murmur Abdomen: soft, non-tender, non-distended Extremities: clear Neurological: no change Internal Medicine Assmt/Plan - Assessment Assessment: 1.HYPERLIPIDEMIA. 2.DJD. 3.PSYCHOSIS - Plan Plan: CONTINUE ON CURRENT MEDICATION AND DIET. Nutritional Asmnt/Malnutr-PDOC - Dietary Evaluation Malnutrition Findings (Please click <Entered> for more info): Nutritional Asmnt/Malnutrition Start: 11/01/18 12: 39 Text: Status: Complete Freq: Protocol: Document 11/01/18 12:39 SHAWN (Rec: 11/01/18 12:42 SHAWN [email or web address]) Nutritional Asmnt/Malnutrition Patient General Information Nutritional Screening Moderate Risk Diagnosis PSYCHOSIS Pertinent Medical Hx/Surgical Hx HYPERLIPIDEMIA, DJD, PSYCHOSIS , HTN, BIPOLAR DISORDER Subjective Information PT IS A 73 YEAR OLD MALE FROM [facility] ADMITTED D/T ONSET AGITATION AND HOSTILE BEHAVIOR X3 DAYS. PT HAS EATEN 100% MEALS ALMOST EVERY MEAL SINCE ADMIT PER MEAL/NUTRITION ACTIVITY RECORD. HT: 59 WT: 165 LB (75 KG) BMI: 24.37 (NORMAL) GI: WNL, FLAT, SOFT BM: 10/30 X 1 I/O: 1020/NOT NOTED SKIN: WNL, INTACT RAIN: 20 DIET ORDER: MECHANICAL SOFT ESTIMATED ENERGY NEEDS: ( GERIATRIC, CBW) 8844-5903 KCALS (25-30 KCALS/ KG) 75-90 G PRO (1.0-1.2 G/KG) 9256-9102 ML (25-30 ML/KG) PT PO INTAKE: 100% MEALS PER MEAL/NUTRITION ACTIVITY RECORD . DIETARY IS CURRENTLY PROVIDING AN ESTIMATED 2480 KCALS AND 117 GM PRO TO MEET 100+% KCAL AND 100+% PRO NEEDS . Current Diet Order/ Nutrition Support MECHANICAL SOFT Pertinent Medications MAALOX (PRN), LIPITOR, VIT D3, COLACE, MOM (PRN) Pertinent Labs 10/27: AST 12, ALB 3.5, TAGS 252 Nutritional Hx/Data Height 1.75 m Height (Calculated Centimeters) 175.3 Current Weight (lbs) 74.843 kg Weight (Calculated Kilograms) 74.8 Weight (Calculated Grams) 95515.7 [place] Body Weight 160 LB (72.73 KG) % [place] Body Weight 103 Body Mass Index (BMI) 24.3 Weight Status Approriate GI Symptoms GI Symptoms None Last BM 10/30 X 1 Skin Integrity/Comment: WNL, INTACT RAIN: 20 Estimated Nutritional Goals BEE in Kcals: Using Current wt Calories/Kcals/Kg 25-30 Kcals Calculated 7102-5810 Protein: Using Current wt Protein g/k.0-1.2 Protein Calculated 75-90 Fluid: ml 6735-6027 ML (25-30 ML/KG) Nutritional Problem No current Nutrition Prob Problem NO NUTRITION DIAGNOSIS AT THIS TIME. Etiology N/A Signs/Symptoms: N/A Malnutrition Related to Morbid Obesity Malnutrition related to morbid obesity No Intervention/Recommendation Comments CONTINUE WITH MECHANICAL SOFT DIET ORDERED. Expected Outcomes/Goals Expected Outcomes/Goals 1. PO INTAKE TO CONTINUE TO MEET > 75% OF NUTRITIONAL NEEDS. 2. MONITOR PO INTAKE, WT, NUTRITION RELATED LABS AND SKIN INTEGRITY. 3. F/U LOW RISK IN 7 DAYS, 11/09
[2018-11-04] MEDS: Atorvastatin Calcium 10 MG TAB PO SCH (22:25)
--- NOTE | 2018-11-05 00:25 | Progress Notes ---
DATE: 11/04/2018 SUBJECTIVE: Case was discussed with staff of the patient, reviewed records. The patient was supposed to be discharged yesterday; however, apparently still awaiting a place to accept him at [place], is not willing to take him at this point; however, they are working to send him to [facility]. No side effects to the medication, no sedation, no nausea, and no extrapyramidal symptoms. We will continue to work with the patient in group therapy, milieu therapy, and adjust the medications as needed. JOB# [id number]
--- NOTE | 2018-11-05 13:45 | Progress Notes ---
DATE: 11/05/2018 SUBJECTIVE: Case was discussed with staff of the patient, reviewed records. The patient is compliant with the medication with no side effects. I made further discharge order two days ago; however, apparently the place did not accept him yet. He is supposed to be going to [facility]. No side effects with the medication, no sedation, no nausea, no extrapyramidal symptoms. We will continue the patient in group therapy, milieu therapy, and adjust medications as needed. [facility]# [id number]
[2018-11-05] MEDS: Atorvastatin Calcium 10 MG TAB PO SCH (20:46)
--- NOTE | 2018-11-05 22:28 | Internal Medicine Prog Note ---
Internal Medicine Subjective - Subjective Service Date: 11/05/18 Patient seen and examined:: without staff (HE IS DOING WELL) Patient is:: awake, verbal, ambulating, talking Per staff patient has:: no adverse event Internal Medicine Objective - Results Result Diagrams: 11/03/18 10:20 10/27/18 17:30 Recent Labs: Laboratory Last Values WBC 6.8 Th/cmm (4.8-10.8) 11/03/18 10:20 RBC 4.40 Mil/cmm (3.80-5.80) 11/03/18 10:20 Hgb 14.5 gm/dL (12-16) 11/03/18 10:20 Hct 42.2 % (41.0-60) 11/03/18 10:20 MCV 95.9 fl (80-99) 11/03/18 10:20 MCH 33.0 pg (27.0-31.0) H 11/03/18 10:20 MCHC Differential 34.4 pg (28.0-36.0) 11/03/18 10:20 RDW 14.2 % (11.5-20.0) 11/03/18 10:20 Plt Count 169 Th/cmm (150-400) 11/03/18 10:20 MPV 8.7 fl 11/03/18 10:20 Neutrophils % 63.7 % (40.0-80.0) 11/03/18 10:20 Lymphocytes % 20.8 % (20.0-50.0) 11/03/18 10:20 Monocytes % 6.6 % (2.0-10.0) 11/03/18 10:20 Eosinophils % 5.9 % (0.0-5.0) H 11/03/18 10:20 Basophils % 3.0 % (0.0-2.0) H 11/03/18 10:20 Sodium 144 mEq/L (136-145) 10/27/18 17:30 Potassium 3.8 mEq/L (3.5-5.1) 10/27/18 17:30 Chloride 109 mEq/L (98-107) H 10/27/18 17:30 Carbon Dioxide 26.8 mEq/L (21.0-31.0) 10/27/18 17:30 Anion Gap 12.0 (7.0-16.0) 10/27/18 17:30 BUN 20 mg/dL (7-25) 10/27/18 17:30 Creatinine 1.0 mg/dL (0.7-1.3) 10/27/18 17:30 Est GFR ( Amer) TNP 10/27/18 17:30 Est GFR (Non-Af Amer) TNP 10/27/18 17:30 BUN/Creatinine Ratio 20.0 10/27/18 17:30 Glucose 90 mg/dL (70-105) 10/27/18 17:30 Calcium 9.2 mg/dL (8.6-10.3) 10/27/18 17:30 Total Bilirubin 0.3 mg/dL (0.3-1.0) 10/27/18 17:30 AST 12 U/L (13-39) L 10/27/18 17:30 ALT 12 U/L (7-52) 10/27/18 17:30 Alkaline Phosphatase 72 U/L (34-104) 10/27/18 17:30 Troponin I 0.01 ng/mL (0.01-0.05) 10/27/18 17:30 Total Protein 6.4 gm/dL (6.0-8.3) 10/27/18 17:30 Albumin 3.5 gm/dL (4.2-5.5) L 10/27/18 17:30 Globulin 2.9 gm/dL 10/27/18 17:30 Albumin/Globulin Ratio 1.2 (1.0-1.8) 10/27/18 17:30 Triglycerides 252 mg/dL (<150) H 10/27/18 17:30 Cholesterol 153 mg/dL (<200) 10/27/18 17:30 LDL Cholesterol Direct 78 mg/dL (75-193) 10/27/18 17:30 HDL Cholesterol 43 mg/dL (23-92) 10/27/18 17:30 TSH 1.88 uIU/ml (0.34-5.60) 10/27/18 17:30 Urine Source CLEAN C 10/27/18 17:30 Urine Color YELLOW 10/27/18 17:30 Urine Clarity CLEAR (CLEAR) 10/27/18 17:30 Urine pH 5.5 (4.6 - 8.0) 10/27/18 17:30 Ur Specific [place] 1.015 (1.005-1.030) 10/27/18 17:30 Urine Protein NEGATIVE mg/dL (NEGATIVE) 10/27/18 17:30 Urine Glucose (UA) NEGATIVE mg/dL (NEGATIVE) 10/27/18 17:30 Urine Ketones NEGATIVE mg/dL (NEGATIVE) 10/27/18 17:30 Urine Blood TRACE (NEGATIVE) 10/27/18 17:30 Urine Nitrate NEGATIVE (NEGATIVE) 10/27/18 17:30 Urine Bilirubin NEGATIVE (NEGATIVE) 10/27/18 17:30 Urine Urobilinogen 0.2 E.U./dL (0.2 - 1.0) 10/27/18 17:30 Ur Leukocyte Esterase NEGATIVE (NEGATIVE) 10/27/18 17:30 Urine RBC 2-5 /hpf (0-5) H 10/27/18 17:30 Urine WBC 0-2 /hpf (0-5) 10/27/18 17:30 Ur Epithelial Cells NONE SEEN /lpf (FEW) 10/27/18 17:30 Urine Bacteria FEW /hpf (NONE SEEN) 10/27/18 17:30 Salicylates < 25.0 mg/L (30.0-100.0) L 10/27/18 17:30 Urine Opiates Screen NEGATIVE (NEGATIVE) 10/27/18 17:30 Urine Methadone Screen NEGATIVE (NEGATIVE) 10/27/18 17:30 Acetaminophen 10.0 ug/mL (10.0-30.0) 10/27/18 17:30 Ur Barbiturates Screen NEGATIVE (NEGATIVE) 10/27/18 17:30 Valproic Acid < 10.0 ug/mL (50.0-100.0) L 10/27/18 17:30 Ur Tricyclics Screen NEGATIVE (NEGATIVE) 10/27/18 17:30 Ur Phencyclidine Scrn NEGATIVE (NEGATIVE) 10/27/18 17:30 Amphetamines Screen NEGATIVE (NEGATIVE) 10/27/18 17:30 U Methamphetamines Scrn NEGATIVE (NEGATIVE) 10/27/18 17:30 U Benzodiazepines Scrn NEGATIVE (NEGATIVE) 10/27/18 17:30 U Cocaine Metab Screen NEGATIVE (NEGATIVE) 10/27/18 17:30 U Cannabinoids Screen NEGATIVE (NEGATIVE) 10/27/18 17:30 Ethyl Alcohol < 10 mg/dL (0-10) 10/27/18 17:30 RPR NONREACTIVE (NONREACTIVE) 10/27/18 17:30 - Physical Exam Vitals and I&O: Vital Signs Temp 97.7 F 11/05/18 19:48 Pulse 78 11/05/18 19:48 Resp 18 11/05/18 19:48 BP 122/76 11/05/18 19:48 Pulse Ox 95 11/05/18 19:48 Intake & Output 11/05/18 11/05/18 11/06/18 06:59 18:59 06:59 Intake Total 480 1150 240 Balance 480 1150 240 Intake: Oral 480 1150 240 Other: # Voids 2 2 Active Medications: Current Medications Acetaminophen (Tylenol) 650 mg PO Q4HR PRN PRN Reason: Pain (Mild) Stop: 12/26/18 19:35 Al Hydrox/Mg Hydrox/Simethicone (Maalox) 30 ml PO Q4HR PRN PRN Reason: GI DISTRESS Stop: 12/26/18 20:34 Atorvastatin Calcium (Lipitor) 20 mg PO HS JL; Protocol Stop: 12/26/18 20:59 Last Admin: 11/05/18 20:46 Dose: 20 mg Cholecalciferol (Vitamin D3) 2,000 iu PO DAILY JL Stop: 12/27/18 08:59 Last Admin: 11/05/18 09:29 Dose: 2,000 iu Clozapine (Clozaril) 100 mg PO DAILY JL; Protocol Stop: 12/27/18 15:44 Last Admin: 11/05/18 09:29 Dose: 100 mg Clozapine (Clozaril) 400 mg PO HS JL; Protocol Stop: 12/27/18 20:59 Last Admin: 11/05/18 20:45 Dose: 400 mg Docusate Sodium (Colace) 100 mg PO BID JL Stop: 12/27/18 08:59 Last Admin: 11/05/18 17:15 Dose: 100 mg Lorazepam (Ativan) 0.5 mg PO Q4H PRN; Protocol PRN Reason: Psychois/Agitation/Anxiety Stop: 12/26/18 22:39 Last Admin: 11/04/18 22:26 Dose: 0.5 mg Magnesium Hydroxide (Milk Of Magnesia) 30 ml PO HS PRN PRN Reason: Constipation Zolpidem Tartrate (Ambien) 5 mg PO HS PRN PRN Reason: Insomnia Stop: 12/26/18 22:41 Last Admin: 11/02/18 21:10 Dose: 5 mg General: demented HEENT: NC/AT, PERRLA, EOMI, anicteric sclerae, throat clear Neck: Supple, No JVD, No thyromegaly, +2 carotid pulse wo bruit, No LAD Lungs: CTAB Cardiovascular: RRR, Normal S1, Normal S2, without murmur Abdomen: soft, non-tender, non-distended Extremities: clear Neurological: no change Internal Medicine Assmt/Plan - Assessment Assessment: 1.HYPERLIPIDEMIA. 2.DJD. 3.PSYCHOSIS - Plan Plan: CONTINUE ON CURRENT MEDICATION AND DIET. Nutritional Asmnt/Malnutr-PDOC - Dietary Evaluation Malnutrition Findings (Please click <Entered> for more info): Nutritional Asmnt/Malnutrition Start: 11/01/18 12: 39 Text: Status: Complete Freq: Protocol: Document 11/01/18 12:39 SHAWN (Rec: 11/01/18 12:42 SHAWN [email or web address]) Nutritional Asmnt/Malnutrition Patient General Information Nutritional Screening Moderate Risk Diagnosis PSYCHOSIS Pertinent Medical Hx/Surgical Hx HYPERLIPIDEMIA, DJD, PSYCHOSIS , HTN, BIPOLAR DISORDER Subjective Information PT IS A 73 YEAR OLD MALE FROM [facility] ADMITTED D/T ONSET AGITATION AND HOSTILE BEHAVIOR X3 DAYS. PT HAS EATEN 100% MEALS ALMOST EVERY MEAL SINCE ADMIT PER MEAL/NUTRITION ACTIVITY RECORD. HT: 59 WT: 165 LB (75 KG) BMI: 24.37 (NORMAL) GI: WNL, FLAT, SOFT BM: 10/30 X 1 I/O: 1020/NOT NOTED SKIN: WNL, INTACT RAIN: 20 DIET ORDER: MECHANICAL SOFT ESTIMATED ENERGY NEEDS: ( GERIATRIC, CBW) [id number] KCALS (25-30 KCALS/ KG) 75-90 G PRO (1.0-1.2 G/KG) 1888-1562 ML (25-30 ML/KG) PT PO INTAKE: 100% MEALS PER MEAL/NUTRITION ACTIVITY RECORD . DIETARY IS CURRENTLY PROVIDING AN ESTIMATED 2480 KCALS AND 117 GM PRO TO MEET 100+% KCAL AND 100+% PRO NEEDS . Current Diet Order/ Nutrition Support MECHANICAL SOFT Pertinent Medications MAALOX (PRN), LIPITOR, VIT D3, COLACE, MOM (PRN) Pertinent Labs 10/27: AST 12, ALB 3.5, TAGS 252 Nutritional Hx/Data Height 1.75 m Height (Calculated Centimeters) 175.3 Current Weight (lbs) 74.843 kg Weight (Calculated Kilograms) 74.8 Weight (Calculated Grams) 69709.7 [place] Body Weight 160 LB (72.73 KG) % [place] Body Weight 103 Body Mass Index (BMI) 24.3 Weight Status Approriate GI Symptoms GI Symptoms None Last BM 10/30 X 1 Skin Integrity/Comment: WNL, INTACT RAIN: 20 Estimated Nutritional Goals BEE in Kcals: Using Current wt Calories/Kcals/Kg 25-30 Kcals Calculated 8216-1448 Protein: Using Current wt Protein g/k.0-1.2 Protein Calculated 75-90 Fluid: ml 4257-1049 ML (25-30 ML/KG) Nutritional Problem No current Nutrition Prob Problem NO NUTRITION DIAGNOSIS AT THIS TIME. Etiology N/A Signs/Symptoms: N/A Malnutrition Related to Morbid Obesity Malnutrition related to morbid obesity No Intervention/Recommendation Comments CONTINUE WITH MECHANICAL SOFT DIET ORDERED. Expected Outcomes/Goals Expected Outcomes/Goals 1. PO INTAKE TO CONTINUE TO MEET > 75% OF NUTRITIONAL NEEDS. 2. MONITOR PO INTAKE, WT, NUTRITION RELATED LABS AND SKIN INTEGRITY. 3. F/U LOW RISK IN 7 DAYS, 11/09
--- NOTE | 2018-11-06 21:04 | Internal Medicine Prog Note ---
Internal Medicine Subjective - Subjective Service Date: 11/06/18 Patient seen and examined:: without staff (HE IS CONFUSED) Patient is:: awake, verbal, ambulating, talking Per staff patient has:: no adverse event Internal Medicine Objective - Results Result Diagrams: 11/03/18 10:20 10/27/18 17:30 Recent Labs: Laboratory Last Values WBC 6.8 Th/cmm (4.8-10.8) 11/03/18 10:20 RBC 4.40 Mil/cmm (3.80-5.80) 11/03/18 10:20 Hgb 14.5 gm/dL (12-16) 11/03/18 10:20 Hct 42.2 % (41.0-60) 11/03/18 10:20 MCV 95.9 fl (80-99) 11/03/18 10:20 MCH 33.0 pg (27.0-31.0) H 11/03/18 10:20 MCHC Differential 34.4 pg (28.0-36.0) 11/03/18 10:20 RDW 14.2 % (11.5-20.0) 11/03/18 10:20 Plt Count 169 Th/cmm (150-400) 11/03/18 10:20 MPV 8.7 fl 11/03/18 10:20 Neutrophils % 63.7 % (40.0-80.0) 11/03/18 10:20 Lymphocytes % 20.8 % (20.0-50.0) 11/03/18 10:20 Monocytes % 6.6 % (2.0-10.0) 11/03/18 10:20 Eosinophils % 5.9 % (0.0-5.0) H 11/03/18 10:20 Basophils % 3.0 % (0.0-2.0) H 11/03/18 10:20 Sodium 144 mEq/L (136-145) 10/27/18 17:30 Potassium 3.8 mEq/L (3.5-5.1) 10/27/18 17:30 Chloride 109 mEq/L (98-107) H 10/27/18 17:30 Carbon Dioxide 26.8 mEq/L (21.0-31.0) 10/27/18 17:30 Anion Gap 12.0 (7.0-16.0) 10/27/18 17:30 BUN 20 mg/dL (7-25) 10/27/18 17:30 Creatinine 1.0 mg/dL (0.7-1.3) 10/27/18 17:30 Est GFR ( Amer) TNP 10/27/18 17:30 Est GFR (Non-Af Amer) TNP 10/27/18 17:30 BUN/Creatinine Ratio 20.0 10/27/18 17:30 Glucose 90 mg/dL (70-105) 10/27/18 17:30 Calcium 9.2 mg/dL (8.6-10.3) 10/27/18 17:30 Total Bilirubin 0.3 mg/dL (0.3-1.0) 10/27/18 17:30 AST 12 U/L (13-39) L 10/27/18 17:30 ALT 12 U/L (7-52) 10/27/18 17:30 Alkaline Phosphatase 72 U/L (34-104) 10/27/18 17:30 Troponin I 0.01 ng/mL (0.01-0.05) 10/27/18 17:30 Total Protein 6.4 gm/dL (6.0-8.3) 10/27/18 17:30 Albumin 3.5 gm/dL (4.2-5.5) L 10/27/18 17:30 Globulin 2.9 gm/dL 10/27/18 17:30 Albumin/Globulin Ratio 1.2 (1.0-1.8) 10/27/18 17:30 Triglycerides 252 mg/dL (<150) H 10/27/18 17:30 Cholesterol 153 mg/dL (<200) 10/27/18 17:30 LDL Cholesterol Direct 78 mg/dL (75-193) 10/27/18 17:30 HDL Cholesterol 43 mg/dL (23-92) 10/27/18 17:30 TSH 1.88 uIU/ml (0.34-5.60) 10/27/18 17:30 Urine Source CLEAN C 10/27/18 17:30 Urine Color YELLOW 10/27/18 17:30 Urine Clarity CLEAR (CLEAR) 10/27/18 17:30 Urine pH 5.5 (4.6 - 8.0) 10/27/18 17:30 Ur Specific [place] 1.015 (1.005-1.030) 10/27/18 17:30 Urine Protein NEGATIVE mg/dL (NEGATIVE) 10/27/18 17:30 Urine Glucose (UA) NEGATIVE mg/dL (NEGATIVE) 10/27/18 17:30 Urine Ketones NEGATIVE mg/dL (NEGATIVE) 10/27/18 17:30 Urine Blood TRACE (NEGATIVE) 10/27/18 17:30 Urine Nitrate NEGATIVE (NEGATIVE) 10/27/18 17:30 Urine Bilirubin NEGATIVE (NEGATIVE) 10/27/18 17:30 Urine Urobilinogen 0.2 E.U./dL (0.2 - 1.0) 10/27/18 17:30 Ur Leukocyte Esterase NEGATIVE (NEGATIVE) 10/27/18 17:30 Urine RBC 2-5 /hpf (0-5) H 10/27/18 17:30 Urine WBC 0-2 /hpf (0-5) 10/27/18 17:30 Ur Epithelial Cells NONE SEEN /lpf (FEW) 10/27/18 17:30 Urine Bacteria FEW /hpf (NONE SEEN) 10/27/18 17:30 Salicylates < 25.0 mg/L (30.0-100.0) L 10/27/18 17:30 Urine Opiates Screen NEGATIVE (NEGATIVE) 10/27/18 17:30 Urine Methadone Screen NEGATIVE (NEGATIVE) 10/27/18 17:30 Acetaminophen 10.0 ug/mL (10.0-30.0) 10/27/18 17:30 Ur Barbiturates Screen NEGATIVE (NEGATIVE) 10/27/18 17:30 Valproic Acid < 10.0 ug/mL (50.0-100.0) L 10/27/18 17:30 Ur Tricyclics Screen NEGATIVE (NEGATIVE) 10/27/18 17:30 Ur Phencyclidine Scrn NEGATIVE (NEGATIVE) 10/27/18 17:30 Amphetamines Screen NEGATIVE (NEGATIVE) 10/27/18 17:30 U Methamphetamines Scrn NEGATIVE (NEGATIVE) 10/27/18 17:30 U Benzodiazepines Scrn NEGATIVE (NEGATIVE) 10/27/18 17:30 U Cocaine Metab Screen NEGATIVE (NEGATIVE) 10/27/18 17:30 U Cannabinoids Screen NEGATIVE (NEGATIVE) 10/27/18 17:30 Ethyl Alcohol < 10 mg/dL (0-10) 10/27/18 17:30 RPR NONREACTIVE (NONREACTIVE) 10/27/18 17:30 - Physical Exam Vitals and I&O: Vital Signs Temp 97.5 F 11/06/18 20:22 Pulse 73 11/06/18 20:22 Resp 20 11/06/18 20:22 BP 122/69 11/06/18 20:22 Pulse Ox 99 11/06/18 20:22 Intake & Output 11/06/18 11/06/18 11/07/18 06:59 18:59 06:59 Intake Total 480 160 Balance 480 160 Intake: Oral 480 160 Other: # Voids 2 1 # Bowel Movements 0 Active Medications: Current Medications Acetaminophen (Tylenol) 650 mg PO Q4HR PRN PRN Reason: Pain (Mild) Stop: 12/26/18 19:35 Al Hydrox/Mg Hydrox/Simethicone (Maalox) 30 ml PO Q4HR PRN PRN Reason: GI DISTRESS Stop: 12/26/18 20:34 Atorvastatin Calcium (Lipitor) 20 mg PO HS JL; Protocol Stop: 12/26/18 20:59 Last Admin: 11/05/18 20:46 Dose: 20 mg Cholecalciferol (Vitamin D3) 2,000 iu PO DAILY JL Stop: 12/27/18 08:59 Last Admin: 11/06/18 08:24 Dose: 2,000 iu Clozapine (Clozaril) 100 mg PO DAILY JL; Protocol Stop: 12/27/18 15:44 Last Admin: 11/06/18 08:25 Dose: 100 mg Clozapine (Clozaril) 400 mg PO HS JL; Protocol Stop: 12/27/18 20:59 Last Admin: 11/05/18 20:45 Dose: 400 mg Docusate Sodium (Colace) 100 mg PO BID JL Stop: 12/27/18 08:59 Last Admin: 11/06/18 17:01 Dose: 100 mg Lorazepam (Ativan) 0.5 mg PO Q4H PRN; Protocol PRN Reason: Psychois/Agitation/Anxiety Stop: 12/26/18 22:39 Last Admin: 11/04/18 22:26 Dose: 0.5 mg Magnesium Hydroxide (Milk Of Magnesia) 30 ml PO HS PRN PRN Reason: Constipation Zolpidem Tartrate (Ambien) 5 mg PO HS PRN PRN Reason: Insomnia Stop: 12/26/18 22:41 Last Admin: 11/02/18 21:10 Dose: 5 mg General: demented HEENT: NC/AT, PERRLA, EOMI, anicteric sclerae, throat clear Neck: Supple, No JVD, No thyromegaly, +2 carotid pulse wo bruit, No LAD Lungs: CTAB Cardiovascular: RRR, Normal S1, Normal S2, without murmur Abdomen: soft, non-tender, non-distended Extremities: clear Neurological: no change Internal Medicine Assmt/Plan - Assessment Assessment: 1.HYPERLIPIDEMIA. 2.DJD. 3.PSYCHOSIS - Plan Plan: CONTINUE ON CURRENT MEDICATION AND DIET. Nutritional Asmnt/Malnutr-PDOC - Dietary Evaluation Malnutrition Findings (Please click <Entered> for more info): Nutritional Asmnt/Malnutrition Start: 11/01/18 12: 39 Text: Status: Complete Freq: Protocol: Document 11/01/18 12:39 SHAWN (Rec: 11/01/18 12:42 SHAWN [email or web address]) Nutritional Asmnt/Malnutrition Patient General Information Nutritional Screening Moderate Risk Diagnosis PSYCHOSIS Pertinent Medical Hx/Surgical Hx HYPERLIPIDEMIA, DJD, PSYCHOSIS , HTN, BIPOLAR DISORDER Subjective Information PT IS A 73 YEAR OLD MALE FROM [facility] ADMITTED D/T ONSET AGITATION AND HOSTILE BEHAVIOR X3 DAYS. PT HAS EATEN 100% MEALS ALMOST EVERY MEAL SINCE ADMIT PER MEAL/NUTRITION ACTIVITY RECORD. HT: 59 WT: 165 LB (75 KG) BMI: 24.37 (NORMAL) GI: WNL, FLAT, SOFT BM: 10/30 X 1 I/O: 1020/NOT NOTED SKIN: WNL, INTACT RAIN: 20 DIET ORDER: MECHANICAL SOFT ESTIMATED ENERGY NEEDS: ( GERIATRIC, CBW) 9883-6447 KCALS (25-30 KCALS/ KG) 75-90 G PRO (1.0-1.2 G/KG) 0847-1121 ML (25-30 ML/KG) PT PO INTAKE: 100% MEALS PER MEAL/NUTRITION ACTIVITY RECORD . DIETARY IS CURRENTLY PROVIDING AN ESTIMATED 2480 KCALS AND 117 GM PRO TO MEET 100+% KCAL AND 100+% PRO NEEDS . Current Diet Order/ Nutrition Support MECHANICAL SOFT Pertinent Medications MAALOX (PRN), LIPITOR, VIT D3, COLACE, MOM (PRN) Pertinent Labs 10/27: AST 12, ALB 3.5, TAGS 252 Nutritional Hx/Data Height 1.75 m Height (Calculated Centimeters) 175.3 Current Weight (lbs) 74.843 kg Weight (Calculated Kilograms) 74.8 Weight (Calculated Grams) 05458.7 [place] Body Weight 160 LB (72.73 KG) % [place] Body Weight 103 Body Mass Index (BMI) 24.3 Weight Status Approriate GI Symptoms GI Symptoms None Last BM 10/30 X 1 Skin Integrity/Comment: WNL, INTACT RAIN: 20 Estimated Nutritional Goals BEE in Kcals: Using Current wt Calories/Kcals/Kg 25-30 Kcals Calculated 6408-3309 Protein: Using Current wt Protein g/k.0-1.2 Protein Calculated 75-90 Fluid: ml 1847-3771 ML (25-30 ML/KG) Nutritional Problem No current Nutrition Prob Problem NO NUTRITION DIAGNOSIS AT THIS TIME. Etiology N/A Signs/Symptoms: N/A Malnutrition Related to Morbid Obesity Malnutrition related to morbid obesity No Intervention/Recommendation Comments CONTINUE WITH MECHANICAL SOFT DIET ORDERED. Expected Outcomes/Goals Expected Outcomes/Goals 1. PO INTAKE TO CONTINUE TO MEET > 75% OF NUTRITIONAL NEEDS. 2. MONITOR PO INTAKE, WT, NUTRITION RELATED LABS AND SKIN INTEGRITY. 3. F/U LOW RISK IN 7 DAYS, 11/09
[2018-11-06] MEDS: Atorvastatin Calcium 10 MG TAB PO SCH (21:33)
--- NOTE | 2018-11-06 22:04 | Progress Notes ---
DATE: 11/06/2018 Case was discussed with staff of the patient, reviewed records. The patient is awaiting placement, so I put the discharge order for him last week. He is still here awaiting placement as for some reason he has not been accepted yet by the facility at [facility]. He is sleeping well and eating well. No side effects with the medication, no sedation, no nausea. Working on discharge. We will continue outpatient group therapy, milieu therapy, adjust medication as needed. He could be discharged anytime if a bed becomes available. JOB# [id number]
== END 2018-11-07 16:10 | DRG 885 ==
LOC: ER 17:03 → GERO2 18:25
PROVIDERS: ADMIT Psychiatry & Neurology Psychiatry; ATTEND Psychiatry & Neurology Psychiatry
DX: F20.5 Residual schizophrenia (principal); E78.5 Hyperlipidemia, unspecified; M19.90 Unspecified osteoarthritis, unspecified site; I10 Essential (primary) hypertension; F31.9 Bipolar disorder, unspecified; Z79.899 Other long term (current) drug therapy
CPT/HCPCS: 36415-UA; 80053-TC; 80061-TC; 80164-TC; 80307; 80320-TC; 80329-TC; 81001-TC; 83036-90; 84443-TC; 84484-TC; 85025-TC; 86592-TC; 93005; Z7610